=== PATIENT | male | born 1970 | race Caucasian/White ===

== ENCOUNTER 2018-02-12 14:32 | Inpatient (IN) | payer OTHER ==
[2018-02-12 14:42] VITALS: BMI 33.1
--- NOTE | 2018-02-12 15:44 | PDOC ---
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 Pt states the chest pressure led to mild SOB and so took 2 nitros with resolution of CP within 15-20 minutes. Pt came after being convinced to be looked at [facility]. The incident took place near [facility] and pt lives in the [place]. Pt has no complaints presently and states does not have a permit technician nor has pt f/u permit technician. Presenting Symptoms: Chest Pain, Short of Breath Timing/Duration: reports: intermittent Severity/Quality: reports: moderate, pressure Location: reports: substernal Chest Pain Radiation: reports: no radiation Activities at Onset: reports: exertion Prior Chest Pain/Cardiac Workup: reports: Angina, Echocardiography, Pulmonary Embolism, Stress Test Nitro Today/Relief: Yes: 0.4 mg x 2 Aspirin Received prior to arrival (Core Measure): Yes: no aspirin today Beta Maday given by EMS (Core Measure): No Beta Maday taken at Home (Core Measure): No Beta Maday Contraindications (Core Measure): Yes: Not Prescribed Beta Maday indicated at this time? (Core Measure): No Associated Symptoms: Yes: Chest Pain/pressure, Shortness of Breath Past History - Past Medical History Allergies/Adverse Reactions: Allergies Allergy/AdvReac Type Severity Reaction Status Date / Time Penicillins Allergy Verified 02/12/18 14:42 Home Medications: Ambulatory Orders Amlodipine Besylate 5 mg PO DAILY 02/12/18 Apixaban [Eliquis] 5 mg PO BID 02/12/18 Aspirin [ASA -] 81 mg PO DAILY 02/12/18 Atorvastatin Calcium 80 mg PO DAILY 02/12/18 Isosorbide Mononitrate [Isosorbide Mononitrate ER] 60 mg PO DAILY 02/12/18 Levothyroxine [Synthroid -] 50 mcg PO DAILY 02/12/18 Lidocaine 5% Patch [Lidoderm -] 1 patch TP BID 02/12/18 Lisinopril 10 mg PO DAILY 02/12/18 Methylnaltrexone [place] [Relistor] 150 mg PO DAILY 02/12/18 Metoprolol Tartrate 100 mg PO BID 02/12/18 Nitroglycerin Sublingual [Nitrostat -] 0.4 mg SL PRN PRN 02/12/18 Oxycodone HCl 15 mg PO QID PRN 02/12/18 Atorvastatin Ca [Lipitor] 40 mg PO HS 02/13/18 Lisinopril 20 mg PO DAILY 02/13/18 Cardiac Disorders: Yes (failed stress test a few months ago) COPD: Yes HTN: No Hypercholesterolemia: No Thyroid Disease: Yes (hypothyroid) Other medical history: Pulmonary Emboli x 3 - Suicide/Smoking/Psychosocial Hx Smoking History: Never smoked Patient Lives Alone: Yes Lives with/in: lives alone Review of Systems - Review of Systems Able to Perform ROS?: Yes Constitutional: No: Symptoms Reported HEENTM: No: Symptoms Reported Respiratory: No: Symptoms reported Cardiac (ROS): Yes: Chest Pain ABD/GI: No: Symptoms Reported : No: Symptoms Reported Musculoskeletal: No: Symptoms Reported Integumentary: No: Symptoms Reported Neurological: No: Symptoms reported Hematologic/Lymphatic: Yes: See HPI *Physical Exam - Vital Signs Last Vital Signs Temp Pulse Resp BP Pulse Ox 97.7 F 83 16 115/76 97 02/16/18 09:00 02/16/18 14:25 02/16/18 14:25 02/16/18 14:25 02/16/18 14:25 - Physical Exam General Appearance: Yes: Nourished, Appropriately Dressed. No: Apparent Distress HEENT: positive: EOMI, ALEC, Pharynx Normal. negative: Pale Conjunctivae Neck: positive: Supple Respiratory/Chest: positive: Lungs Clear, Normal Breath Sounds. negative: Chest Tender, Respiratory Distress, Accessory Muscle Use Cardiovascular: positive: Regular Rhythm, Regular Rate. negative: Murmur Heart Score/ECG Review - ECG Intrepretation Rhythm: Regular Rhythm (rate 86, nsr, no st elevation/depression noted) Moderate Sedation - Procedure Monitoring Vital Signs: Procedure Monitoring Vital Signs Temperature 97.7 F 02/16/18 09:00 Pulse Rate 83 02/16/18 14:25 Respiratory Rate 16 02/16/18 14:25 Blood Pressure 115/76 02/16/18 14:25 O2 Sat by Pulse Oximetry (%) 97 02/16/18 14:25 ED Treatment Course - LABORATORY CBC & Chemistry Diagram: 02/16/18 05:30 02/16/18 05:30 - ADDITIONAL ORDERS Additional order review: 02/13/18 02/12/18 05:30 15:30 RBC 4.22 4.39 MCV 83.5 82.2 MCHC 32.2 34.3 RDW 15.4 15.6 MPV 8.8 8.8 Neutrophils % 58.4 72.0 Lymphocytes % 24.4 D 15.9 Monocytes % 11.8 H 7.5 Eosinophils % 5.2 H 4.3 Basophils % 0.2 0.3 - RADIOLOGY Radiology Studies Ordered: Category Date Time Status CHEST X-RAY PORTABLE* [RAD] Stat Radiology 02/12/18 15:11 Completed - Medications Given in the ED: ED Medications Discontinued Medications Generic Name Dose Route Start Last Admin Trade Name Freq PRN Reason Stop Dose Admin Apixaban 5 mg 02/12/18 22:00 02/13/18 10:07 Eliquis - PO 5 mg BID JESSICA Administration Atorvastatin Calcium 40 mg 02/12/18 17:38 02/12/18 18:30 Lipitor - PO 02/12/18 17:39 40 mg ONCE ONE Administration Bisacodyl 20 mg 02/14/18 16:18 02/14/18 16:18 Dulcolax - PO 02/14/18 16:19 20 mg ONCE ONE Administration Enoxaparin Sodium 120 mg 02/13/18 17:30 02/14/18 17:24 Lovenox - SQ 02/14/18 23:00 120 mg Q12H JESSICA Administration Enoxaparin Sodium 120 mg 02/15/18 18:00 02/15/18 18:10 Lovenox - SQ 02/15/18 18:01 120 mg ONCE ONE Administration Heparin Sodium (Porcine) 5,000 unit 02/12/18 18:00 02/12/18 18:31 Heparin - SQ Not Given Q8H-IV JESSICA Metoprolol Tartrate 100 mg 02/12/18 17:35 02/12/18 18:30 Lopressor - PO 02/12/18 17:36 100 mg ONCE ONE Administration Morphine Sulfate 2 mg 02/16/18 04:51 02/16/18 05:01 Morphine Injection - IVPUSH 02/16/18 04:52 Not Given ONCE ONE Oxycodone HCl 15 mg 02/12/18 16:33 02/12/18 16:54 Roxicodone - PO 02/12/18 16:34 15 mg ONCE ONE Administration Oxycodone HCl 15 mg 02/12/18 21:14 02/15/18 19:15 Roxicodone - PO 15 mg Q4H PRN Administration PAIN SCALE 5-10 Oxycodone HCl 15 mg 02/15/18 23:25 02/15/18 23:40 Roxicodone - PO 15 mg Q6H PRN Administration PAIN LEVEL 6-10 Polyethylene Glycol 255 gm 02/15/18 17:00 02/15/18 18:00 Miralax (For Bowel Prep) - PO 02/15/18 17:01 255 gm ONCE ONE Administration Polyethylene Glycol/Electrolytes 4,000 ml 02/14/18 16:18 02/14/18 16:43 Golytely Solution - PO 02/14/18 16:19 4,000 ml ONCE ONE Administration Medical Decision Making - Medical Decision Making 02/12/18 15:36 CC: cp w/ sob x 10 minutes, relieved w nlg x 2, hx abnormal stress test, pe x 3 , htn, dyslipidemia Exam: vss, ekg normal, no acute physical findings Plan: cardiac w/u, 02/12/18 16:38 Laboratory Tests 02/12/18 02/12/18 02/12/18 15:30 15:30 15:30 WBC 3.8 L Hgb 12.4 Hct 36.1 Plt Count 110 L MPV 8.8 Absolute Neuts (auto) 2.7 INR 1.03 Sodium 138 Potassium 3.7 Chloride 103 Carbon Dioxide 28 Anion Gap 7 L BUN 11 Creatinine 1.0 Random Glucose 92 Calcium 8.4 L Total Bilirubin 0.5 AST 73 H ALT 117 H Creatine Kinase 270 Troponin I < 0.02 Albumin 3.8 02/12/18 17:38 Patient awaiting ultrasound guided IV to be placed by resident. Case discussed with Dr. Derek Degroot permit technician who is recommending to get patient his beta maday Lopressor 100 along with his statin medication. He states will see patient tomorrow. Case was discussed with hospitalist, ADMIT to telemetry under observation status. *DC/Admit/Observation/Transfer Diagnosis at time of Disposition: Chest pain - Discharge Dispostion Decision to Admit order: Yes - Referrals - Patient Instructions - Post Discharge Activity
[2018-02-12 16:06] LABS: BASO % 0.3 % (0-2.0); EOS % 4.3 % (0-4.5); HEMATOCRIT 36.1 % (35.4-49); HEMOGLOBIN 12.4 GM/dL (11.7-16.9); LYMPH % 15.9 % (8-40); MCH 28.2 pg (25.7-33.7); MCHC 34.3 g/dl (32.0-35.9); MEAN CELL VOLUME 82.2 fl (80-96); MEAN PLT VOLUME 8.8 fl (7.5-11.1); MONO % 7.5 % (3.8-10.2); PLATELET COUNT 110 K/MM3 (134-434); RBC 4.39 M/mm3 (4.00-5.60); RDW 15.6 % (11.9-15.9); WHITE BLOOD COUNT 3.8 K/mm3 (4.0-10.0)
[2018-02-12 16:31] LABS: INR 1.03 (0.83-1.09); PROTHROMBIN TIME (PATIENT) 12.2 SEC (9.7-13.0)
[2018-02-12 16:33] LABS: ACTIVATED PTT 27.6 SECONDS (25.2-36.5)
[2018-02-12] MEDS ORDERED: oxyCODONE HCL 5 MG TABLET PO ONE (16:33)
[2018-02-12 16:35] LABS: ALBUMIN 3.8 g/dl (3.4-5.0); ALK PHOS 61 U/L (45-117); ANION GAP 7 MMOL/L (8-16); BILIRUBIN,TOTAL 0.5 mg/dL (0.2-1); BLOOD UREA NITROGEN 11 mg/dL (7-18); CALCIUM 8.4 mg/dL (8.5-10.1); CHLORIDE 103 mmol/L (98-107); CO2 28 mmol/L (21-32); GLUCOSE,RANDOM 92 mg/dL (74-106); MAGNESIUM 2.2 mg/dL (1.8-2.4); POTASSIUM 3.7 mmol/L (3.5-5.1); SGOT/AST 73 U/L (15-37); SGPT/ALT 117 U/L (13-61); SODIUM 138 mmol/L (136-145); TOT PROT 7.8 g/dl (6.4-8.2)
[2018-02-12] MEDS ORDERED: oxyCODONE HCL 5 MG TABLET ONE (16:57)
[2018-02-12] MEDS ORDERED: METOPROLOL TARTRATE 50 MG TABLET (FP) PO ONE (17:35)
[2018-02-12] MEDS ORDERED: ATORVASTATIN CA 40 MG TABLET (FP) PO ONE (17:38)
[2018-02-12] MEDS ORDERED: HEPARIN NA (PORCINE) 5,000 UNITS/ML 1ML VIAL SQ SCH (18:00)
[2018-02-12] MEDS ORDERED: NITROGLYCERIN SUBLINGUAL 1/150 0.4 MG TAB SL PRN ×2 (18:02→18:04)
--- NOTE | 2018-02-12 18:03 | HP ---
CHIEF COMPLAINT: Chest Pain PCP: HISTORY OF PRESENT ILLNESS: Pt is a 47 y/o gentleman with a significant past medical history of HTN, HLD, positive stress test [facility] November 2017, hypothyroidism, DVT ( 2011 s/p R Knee surgery), Pulmonary embolism (2014), Pulmonary embolism Mar 2017 (started on Coumadin), another PE Oct 2017 (Coumadin switched to eliquis), IVC filter placement who presented to [facility] c/o left sided chest pain that begin earlier today. Per pt, he was walking up 5 flights of stairs when he suddenly began to experience a tight, squeezing sensation on the left side of his chest. Pain is described as a 6/10 in severity. Associated diaphoresis, no palpitations, nausea or vomiting. Pt endorses 6 months of intermittent exertional chest pain which has progressed to nearly daily and sometimes at rest. States he uses nitroglycerin when he experiences his chest pain which successfully mitigates his pain. Furthermore, pt also endorses orthopnea and states that he feel like he is " under water" and uses 2 and 1/2 pillows to sleep. ER course was notable for: (1) Troponin < 0.02 (2) (3) Recent Travel: PAST MEDICAL HISTORY: per HPI PAST SURGICAL HISTORY: R knee replacement surgery, Hip surgery s/p fracture Social History: Smoking: denies Alcohol:denies Drugs: denies Family History: Brother M.I at 39 y/o, Father M.I @ 54 Allergies Penicillin Penicillins Allergy (Verified 02/12/18 14:42) HOME MEDICATIONS: Home Medications Medication Instructions Recorded Amlodipine Besylate 5 mg PO DAILY 02/12/18 Apixaban [Eliquis] 5 mg PO BID 02/12/18 Aspirin [ASA -] 81 mg PO DAILY 02/12/18 Atorvastatin Calcium 80 mg PO DAILY 02/12/18 Isosorbide Mononitrate [Isosorbide 60 mg PO DAILY 02/12/18 Mononitrate ER] Levothyroxine [Synthroid -] 50 mcg PO DAILY 02/12/18 Lidocaine 5% Patch [Lidoderm -] 1 patch TP BID 02/12/18 Lisinopril 10 mg PO DAILY 02/12/18 Methylnaltrexone [place] [Relistor] 150 mg PO DAILY 02/12/18 Metoprolol Succinate [Kapspargo 100 mg PO BID 02/12/18 Sprinkle] Nitroglycerin Sublingual 0.4 mg SL PRN PRN 02/12/18 [Nitrostat -] Oxycodone HCl 15 mg PO QID PRN 02/12/18 REVIEW OF SYSTEMS CONSTITUTIONAL: Absent: fever, chills, diaphoresis, generalized weakness, malaise, loss of appetite, weight change HEENT: Absent: rhinorrhea, nasal congestion, throat pain, throat swelling, difficulty swallowing, mouth swelling, ear pain, eye pain, visual changes CARDIOVASCULAR: PRESENT: chest pain, syncope, palpitations, lightheadedness, RESPIRATORY: PRESENT: shortness of breath, dyspnea with exertion, orthopnea GASTROINTESTINAL: Absent: abdominal pain, abdominal distension, nausea, vomiting, diarrhea, constipation, melena, hematochezia GENITOURINARY: Absent: dysuria, frequency, urgency, hesitancy, hematuria, flank pain, genital pain MUSCULOSKELETAL: Absent: myalgia, arthralgia, joint swelling, back pain, neck pain SKIN: Absent: rash, itching, pallor HEMATOLOGIC/IMMUNOLOGIC: Absent: easy bleeding, easy bruising, lymphadenopathy, frequent infections ENDOCRINE: Absent: unexplained weight gain, unexplained weight loss, heat intolerance, cold intolerance NEUROLOGIC: Absent: headache, focal weakness or paresthesias, dizziness, unsteady gait, seizure, mental status changes, bladder or bowel incontinence PSYCHIATRIC: Absent: anxiety, depression, suicidal or homicidal ideation, hallucinations. PHYSICAL EXAMINATION Vital Signs - 24 hr 02/12/18 14:34 Temperature 97.9 F Pulse Rate 88 Respiratory 18 Rate Blood Pressure 130/82 O2 Sat by Pulse 97 Oximetry (%) GENERAL: NAD AAOx3, Pleasant HEAD: Atraumatic Normocephalic EYES: EOMI Conjunctiva clear EARS, NOSE, THROAT: MMM NECK: Supple LUNGS: CTA B/L No wheezing rales or rhonchi HEART: RRR No MRG appreciated S1S2 ABDOMEN: Soft Nondistended nontender MUSCULOSKELETAL: FROM throughout UPPER EXTREMITIES: No CCE LOWER EXTREMITIES: Trace edema NEUROLOGICAL: No neuro deficits appreciated PSYCHIATRIC: Cooperative. Good eye contact. Appropriate mood and affect. SKIN: No rashes or lesions appreciated Laboratory Results - last 24 hr 02/12/18 02/12/18 02/12/18 15:30 15:30 15:30 WBC 3.8 L RBC 4.39 Hgb 12.4 Hct 36.1 MCV 82.2 MCH 28.2 MCHC 34.3 RDW 15.6 Plt Count 110 L MPV 8.8 Absolute Neuts (auto) 2.7 Neutrophils % 72.0 Lymphocytes % 15.9 Monocytes % 7.5 Eosinophils % 4.3 Basophils % 0.3 Nucleated RBC % 0 PT with INR 12.20 INR 1.03 PTT (Actin FS) 27.6 Sodium 138 Potassium 3.7 Chloride 103 Carbon Dioxide 28 Anion Gap 7 L BUN 11 Creatinine 1.0 Creat Clearance w eGFR > 60 Random Glucose 92 Calcium 8.4 L Magnesium 2.2 Total Bilirubin 0.5 AST 73 H ALT 117 H Alkaline Phosphatase 61 Creatine Kinase 270 Creatine Kinase Index 0.8 CK-MB (CK-2) 2.4 Troponin I < 0.02 Total Protein 7.8 Albumin 3.8 Blood Type Antibody Screen 02/12/18 15:30 WBC RBC Hgb Hct MCV MCH MCHC RDW Plt Count MPV Absolute Neuts (auto) Neutrophils % Lymphocytes % Monocytes % Eosinophils % Basophils % Nucleated RBC % PT with INR INR PTT (Actin FS) Sodium Potassium Chloride Carbon Dioxide Anion Gap BUN Creatinine Creat Clearance w eGFR Random Glucose Calcium Magnesium Total Bilirubin AST ALT Alkaline Phosphatase Creatine Kinase Creatine Kinase Index CK-MB (CK-2) Troponin I Total Protein Albumin Blood Type A POSITIVE Antibody Screen Negative ASSESSMENT/PLAN: Pt is a 47 y/o gentleman with a significant past medical history of HTN, HLD, positive stress test in [place] 6 months ago, positive stress test [facility] November 2017, hypothyroidism, DVT (2011 s/p R Knee surgery), Pulmonary embolism (2014), Pulmonary embolism Mar 2017 (started on Coumadin), another PE Oct 2017 (Coumadin switched to eliquis), IVC filter placement who presented to [facility] c/o left sided chest pain that begin earlier today. #Stable Angina -Chest pain while walking up 5 flights of stairs mitigated with Nitroglycerin - Previous + stress tests in past - Cardiology on board - Imdur 60 MG po Daily - Nitro 0.4 mg SL PRN -Metoprolol succinate 100 BID - Troponin Negative. Repeat pending - EKG Nl Sinus rythm, normal rate, No acute ST changes appreciated -Tele monitoring #HTN Continue home Lisinopril, Amlodipine #HLD Atorvastatin #FEN No Fluids Monitor Electrolytes Sodium Controlled Diet #DVT ppx: Eliquis #Dispo: Tele Visit type - Emergency Visit Emergency Visit: Yes ED Registration Date: 02/12/18 Care time: The patient presented to the Emergency Department on the above date and was hospitalized for further evaluation of their emergent condition. - New Patient This patient is new to me today: Yes Date on this admission: 02/12/18 - Critical Care Critical Care patient: No
[2018-02-12] MEDS ORDERED: oxyCODONE HCL 5 MG TABLET PO PRN (18:04)
[2018-02-12] MEDS ORDERED: METOPROLOL TARTRATE 50 MG TABLET (FP) ONE (18:48)
[2018-02-12] MEDS ORDERED: ATORVASTATIN CA 40 MG TABLET (FP) ONE (18:49)
--- NOTE | 2018-02-12 19:01 | PN ---
Teaching Attending Note Name of Resident: Rg Cespedes ATTENDING PHYSICIAN STATEMENT I saw and evaluated the patient. I reviewed the resident's note and discussed the case with the resident. I agree with the resident's findings and plan as documented. SUBJECTIVE: Comfortable, pain-free currently. No palpitations, SOB, diaphoresis OBJECTIVE: Afebrile, Hemodynamically Stable Last Vital Signs Temp Pulse Resp BP Pulse Ox 97.9 F 88 18 130/82 97 02/12/18 14:34 02/12/18 14:34 02/12/18 14:34 02/12/18 14:34 02/12/18 14:34 HEENT - Atraumatic, Normocephalic. No pharyngeal erythema/exudate Heart -S1, S2, RRR Lungs - clear to auscultation Abdomen - soft, non-tender. Bowel Souds normal. Extremities - 1+ edema. No calf tenderness Neuro - AAO x 3. Tone/Power normal all 4 extremities. Laboratory Results - last 24 hr 02/12/18 02/12/18 02/12/18 15:30 15:30 15:30 WBC 3.8 L RBC 4.39 Hgb 12.4 Hct 36.1 MCV 82.2 MCH 28.2 MCHC 34.3 RDW 15.6 Plt Count 110 L MPV 8.8 Absolute Neuts (auto) 2.7 Neutrophils % 72.0 Lymphocytes % 15.9 Monocytes % 7.5 Eosinophils % 4.3 Basophils % 0.3 Nucleated RBC % 0 PT with INR 12.20 INR 1.03 PTT (Actin FS) 27.6 Sodium 138 Potassium 3.7 Chloride 103 Carbon Dioxide 28 Anion Gap 7 L BUN 11 Creatinine 1.0 Creat Clearance w eGFR > 60 Random Glucose 92 Calcium 8.4 L Magnesium 2.2 Total Bilirubin 0.5 AST 73 H ALT 117 H Alkaline Phosphatase 61 Creatine Kinase 270 Creatine Kinase Index 0.8 CK-MB (CK-2) 2.4 Troponin I < 0.02 Total Protein 7.8 Albumin 3.8 Blood Type Antibody Screen 02/12/18 15:30 WBC RBC Hgb Hct MCV MCH MCHC RDW Plt Count MPV Absolute Neuts (auto) Neutrophils % Lymphocytes % Monocytes % Eosinophils % Basophils % Nucleated RBC % PT with INR INR PTT (Actin FS) Sodium Potassium Chloride Carbon Dioxide Anion Gap BUN Creatinine Creat Clearance w eGFR Random Glucose Calcium Magnesium Total Bilirubin AST ALT Alkaline Phosphatase Creatine Kinase Creatine Kinase Index CK-MB (CK-2) Troponin I Total Protein Albumin Blood Type A POSITIVE Antibody Screen Negative Home Medications Medication Instructions Recorded Amlodipine Besylate 5 mg PO DAILY 02/12/18 Apixaban [Eliquis] 5 mg PO BID 02/12/18 Aspirin [ASA -] 81 mg PO DAILY 02/12/18 Atorvastatin Calcium 80 mg PO DAILY 02/12/18 Isosorbide Mononitrate [Isosorbide 60 mg PO DAILY 02/12/18 Mononitrate ER] Levothyroxine [Synthroid -] 50 mcg PO DAILY 02/12/18 Lidocaine 5% Patch [Lidoderm -] 1 patch TP BID 02/12/18 Lisinopril 10 mg PO DAILY 02/12/18 Methylnaltrexone [place] [Relistor] 150 mg PO DAILY 02/12/18 Metoprolol Succinate [Kapspargo 100 mg PO BID 02/12/18 Sprinkle] Nitroglycerin Sublingual 0.4 mg SL PRN PRN 02/12/18 [Nitrostat -] Oxycodone HCl 15 mg PO QID PRN 02/12/18 CXR - no acute cardiopulmonary findings ECG - Normal sinus rhythm, rate - no ST/T wave changes. ASSESSMENT AND PLAN: 47 year old male with Hx DVT/recurrent PEs (2014, 2017 x 2, last 11/15 - at which time he was switched from Coumadin to Eliquis), CAD (s/p 2 positive stress tests - 1 NM stress 08/09 ago in [place] and another ECG/exercise Stress 12/15 at [facility]), never proceeded to Cath despite the recommendation by Cardiology at [facility] to do so, worsening exertional chest pain, now with almost daily chest discomfort, sometimes occurring at rest, relieved by nitroglycerin. he is currently admitted after 2 episodes of chest pain today (one after climbing 3 flights of stairs and the other at rest, both relieved within minutes by NTG). He had associated diaphoresis. Denies palpitations, SOB, Nausea , vomiting. Currently pain-free. Reports Orthopnea (uses 2 1/2 pillows), no PND or palpitations. No fever/chills/ abdominal pain/nausea/vomiting. No headache/visual disturbance/ limb numbness, weakness or tingling. No LOC/syncope/fits/faints/blackouts/seizures. Positive FH - Father had RI at age 54, Brother underwent CABG at age 39. SH - Non-smoker/denies alcohol use. Allergies - PCN Meds - as above ROS - 10 point review of systems performed and all pertinent findings as outlined above. PHYSICAL EXAM - As Above INVESTIGATIONS/LABS - As Above. A/P 1. Unstable Angina - has rest episodes of CP with 2 prior positive stress tests in the past 6 months. Troponin negative - will trend. Admit to telemonitoring bed. Continue ASA, BB, SELWYN, Statin. Will give O2 at 2L and Nitro paste. Discussed at length with Cardiology on-call (Dr. Degorot) who was consulted regarding unstable angina and need for Cardiac Cath - he recommended admission and did not feel that the patient required transfer to a center with facility for cardiac cath. He felt that the patient may benefit from optimization of medical therapy rather than emergent cath. I explained to the patient that [facility] does not offer cath and that he would need to be transferred to another facility if there was any deterioration overnight that warranted acute intervention. Patient reports Orthopnea and has LE edema - BNP added. Echo requested. 2. Hx DVT with recurrent PEs On eliquis No respiratory distress, SpO2 97% RA Thrombophilia work-up reportedly negative. 3. HTN - Continue Norvasc, Isosorbide, Lisinopril, Metoprolol 4. HLD - Continue Atorvastatin 5. Hypothyroidism - Continue Synthroid. 6. Elevated Transaminases - possibly due to hepatic congestion. Will request Hepatitis work-up and Abdominal US. DVT Px - on Eliquis GI Px - PPI
[2018-02-12 20:14] LABS: N-TERMINAL BNP 23.1 pg/ml (5-125)
[2018-02-12] MEDS ORDERED: MORPHINE SULFATE 2 MG/ML VIAL IVPUSH ONE (21:08)
[2018-02-12] MEDS: oxyCODONE HCL 5 MG TABLET PO PRN (21:24)
[2018-02-12] MEDS: APIXABAN 5 MG TABLET PO SCH (21:25)
[2018-02-12] MEDS: PANTOPRAZOLE 40 MG TABLET (FP) PO SCH (21:25)
[2018-02-12] MEDS: LIDOCAINE 5% TOPICAL PATCH TP SCH (22:44)
[2018-02-13] MEDS: oxyCODONE HCL 5 MG TABLET PO PRN ×6 (02:34→22:20)
[2018-02-13 02:56] LABS: URINE APPEARANCE CLEAR; URINE BILIRUBIN NEGATIVE (<2.0 mg/dL); URINE COLOR STRAW; URINE GLUCOSE (UA) NEGATIVE (NEGATIVE); URINE KETONE NEGATIVE (NEGATIVE); URINE LEUK ESTERASE NEGATIVE (NEGATIVE); URINE NITRITE NEGATIVE (NEGATIVE); URINE PROTEIN NEGATIVE (NEGATIVE); URINE UROBILINOGEN NEGATIVE mg/dL (0.2-1.0)
[2018-02-13 06:39] LABS: BASO % 0.2 % (0-2.0); EOS % 5.2 % (0-4.5); HEMATOCRIT 35.3 % (35.4-49); HEMOGLOBIN 11.4 GM/dL (11.7-16.9); INR 1.04 (0.83-1.09); LYMPH % 24.4 % (8-40); MCH 26.9 pg (25.7-33.7); MCHC 32.2 g/dl (32.0-35.9); MEAN CELL VOLUME 83.5 fl (80-96); MEAN PLT VOLUME 8.8 fl (7.5-11.1); MONO % 11.8 % (3.8-10.2); NEUT % 58.4 % (42.8-82.8); PLATELET COUNT 83 K/MM3 (134-434); PROTHROMBIN TIME (PATIENT) 12.3 SEC (9.7-13.0); RBC 4.22 M/mm3 (4.00-5.60); RDW 15.4 % (11.9-15.9); WHITE BLOOD COUNT 2.7 K/mm3 (4.0-10.0)
[2018-02-13 06:41] LABS: ACTIVATED PTT 28.5 SECONDS (25.2-36.5)
[2018-02-13 06:56] LABS: ALBUMIN 3.1 g/dl (3.4-5.0); ALK PHOS 50 U/L (45-117); ANION GAP 5 MMOL/L (8-16); BILIRUBIN,TOTAL 0.4 mg/dL (0.2-1); BLOOD UREA NITROGEN 10 mg/dL (7-18); CALCIUM 8.2 mg/dL (8.5-10.1); CHLORIDE 107 mmol/L (98-107); CO2 28 mmol/L (21-32); GLUCOSE,RANDOM 104 mg/dL (74-106); MAGNESIUM 2.2 mg/dL (1.8-2.4); N-TERMINAL BNP 24.1 pg/ml (5-125); PHOSPHOROUS 3.1 mg/dL (2.5-4.9); POTASSIUM 4.1 mmol/L (3.5-5.1); SGOT/AST 56 U/L (15-37); SGPT/ALT 98 U/L (13-61); SODIUM 140 mmol/L (136-145); TOT PROT 6.4 g/dl (6.4-8.2)
--- NOTE | 2018-02-13 09:50 | EKG ---
Test Reason : Blood Pressure : / mmHG Vent. Rate : 084 BPM Atrial Rate : 084 BPM P-R Int : 152 ms QRS Dur : 096 ms QT Int : 382 ms P-R-T Axes : 034 015 026 degrees QTc Int : 451 ms NORMAL SINUS RHYTHM NORMAL ECG WHEN COMPARED WITH ECG OF 12-FEB-2018 14:37, NO SIGNIFICANT CHANGE WAS FOUND Confirmed by LANI SANTOS MD ([id number]) on 02/13/2018 9:49:59 AM Referred By: Confirmed By:LANI SANTOS MD
--- NOTE | 2018-02-13 09:52 | EKG ---
Test Reason : Blood Pressure : / mmHG Vent. Rate : 086 BPM Atrial Rate : 086 BPM P-R Int : 146 ms QRS Dur : 102 ms QT Int : 376 ms P-R-T Axes : 031 018 014 degrees QTc Int : 449 ms NORMAL SINUS RHYTHM NORMAL ECG NO PREVIOUS ECGS AVAILABLE Confirmed by LANI SANTOS MD ([id number]) on 02/13/2018 9:52:45 AM Referred By: Confirmed By:LANI SANTOS MD
[2018-02-13] MEDS ORDERED: METHYLNALTREXONE BROMIDE 150 MG PO SCH (10:00)
[2018-02-13] MEDS: ISOSORBIDE MONONITRATE 60 MG TAB.SR.24H (FP) PO SCH (10:06)
[2018-02-13] MEDS: ASPIRIN 81 MG CHEWABLE TABLETS PO SCH (10:06)
[2018-02-13] MEDS: LIDOCAINE 5% TOPICAL PATCH TP SCH ×2 (10:07→22:27)
[2018-02-13] MEDS: PANTOPRAZOLE 40 MG TABLET (FP) PO SCH (10:07)
[2018-02-13] MEDS: LISINOPRIL 10 MG TABLET (FP) PO SCH (10:07)
[2018-02-13] MEDS: APIXABAN 5 MG TABLET PO SCH (10:07)
[2018-02-13] MEDS: ATORVASTATIN CA 80 MG TABLET (FP) PO SCH (10:07)
[2018-02-13] MEDS: amLODIPine BESYLATE 5 MG TABLET (FP) PO SCH (10:07)
[2018-02-13] MEDS: LEVOTHYROXINE NA 50 MCG TABLET (FP) PO SCH (10:09)
--- NOTE | 2018-02-13 11:12 | CON.CARD ---
Consult Consult Specialty:: Cardiology Referred by:: Hospitalist Medicine Reason for Consultation:: Angina - History of Present Illness Chief Complaint: Angina History of Present Illness: Pt is a 47 y/o gentleman with a significant past medical history of HTN, HLD, positive stress test [facility] November 2017, hypothyroidism, DVT ( 2011 s/p R Knee surgery), Pulmonary embolism (2014), Pulmonary embolism Mar 2017 (started on Coumadin), another PE Oct 2017 (Coumadin switched to eliquis), IVC filter placement who presented to [facility] c/o progressive angina walking up 5 flights of stairs when he suddenly began to experience a tight, squeezing sensation on the left side of his chest NTG responsive associated with TRISTAN, diaphoresis, orthopnea without palpitations, nausea or vomiting, PND or LE edema. Pt endorses 6 months of intermittent exertional chest pain which has progressed. States he uses nitroglycerin when he experiences his chest pain which successfully mitigates his pain. He also reports hematochezia for last month with appearance of maroon stools. - History Source History Provided By: Patient Limitations to Obtaining History: No Limitations - Alcohol/Substance Use Hx Alcohol Use: No - Smoking History Smoking history: Never smoked Home Medications - Allergies Allergies/Adverse Reactions: Allergies Allergy/AdvReac Type Severity Reaction Status Date / Time Penicillins Allergy Verified 02/12/18 14:42 - Home Medications Home Medications: Ambulatory Orders Amlodipine Besylate 5 mg PO DAILY 02/12/18 Apixaban [Eliquis] 5 mg PO BID 02/12/18 Aspirin [ASA -] 81 mg PO DAILY 02/12/18 Atorvastatin Calcium 80 mg PO DAILY 02/12/18 Isosorbide Mononitrate [Isosorbide Mononitrate ER] 60 mg PO DAILY 02/12/18 Levothyroxine [Synthroid -] 50 mcg PO DAILY 02/12/18 Lidocaine 5% Patch [Lidoderm -] 1 patch TP BID 02/12/18 Lisinopril 10 mg PO DAILY 02/12/18 Methylnaltrexone [place]igator [Relistor] 150 mg PO DAILY 02/12/18 Metoprolol Tartrate 100 mg PO BID 02/12/18 Nitroglycerin Sublingual [Nitrostat -] 0.4 mg SL PRN PRN 02/12/18 Oxycodone HCl 15 mg PO QID PRN 02/12/18 Family Disease History - Family Disease History Family Disease History: Heart Disease: Father (AK @ 54, colon cancer @ 54), Brother (CABG @ 39) Review of Systems - Review of Systems Cardiovascular: reports: Chest Pain Respiratory: reports: Exercise Intolerance, Orthopnea, SOB on Exertion Gastrointestinal: reports: Rectal Bleeding Vital Signs: Vital Signs Temperature 97.4 F L 02/13/18 05:00 Pulse Rate 74 02/13/18 05:00 Respiratory Rate 18 02/13/18 05:00 Blood Pressure 103/65 02/13/18 05:00 O2 Sat by Pulse Oximetry (%) 98 02/13/18 01:57 Constitutional: Yes: No Distress, Calm Neck: Yes: Supple Respiratory: Yes: Regular, CTA Bilaterally, Orthopnea Gastrointestinal: Yes: Normal Bowel Sounds, Soft, Abdomen, Obese Cardiovascular: Yes: Regular Rate and Rhythm Heart Sounds: Yes: S1, S2 Edema: No - Other Data Labs, Other Data: CBC, BMP 02/13/18 05:30 02/13/18 05:30 INR, PTT INR 1.04 (0.83-1.09) 02/13/18 05:30 Troponin, BNP 02/12/18 02/12/18 02/12/18 15:30 18:26 23:00 Troponin I < 0.02 < 0.02 < 0.02 B-Natriuretic Peptide 23.1 02/13/18 05:30 Troponin I B-Natriuretic Peptide 24.1 Troponin, BNP 02/12/18 02/12/18 02/12/18 15:30 18:26 23:00 Troponin I < 0.02 < 0.02 < 0.02 B-Natriuretic Peptide 23.1 02/13/18 05:30 Troponin I B-Natriuretic Peptide 24.1 NSR @ [address]-T changes Imaging - Results Chest X-ray: Report Reviewed (NAD) Problem List - Problems (1) Progressive angina Code(s): I20.0 - UNSTABLE ANGINA (2) History of pulmonary embolism Code(s): Z86.711 - PERSONAL HISTORY OF PULMONARY EMBOLISM (3) H/O deep venous thrombosis Code(s): Z86.718 - PERSONAL HISTORY OF OTHER VENOUS THROMBOSIS AND EMBOLISM (5) Chronic anticoagulation Code(s): Z79.01 - DEPUTY CHIEF MAGISTRATE (CURRENT) USE OF ANTICOAGULANTS (6) Hematochezia Code(s): K92.1 - MELENA (7) Family history of malignant neoplasm of colon in first degree relative diagnosed when younger than 60 years of age Code(s): Z80.0 - FAMILY HISTORY OF MALIGNANT NEOPLASM OF DIGESTIVE ORGANS (8) Family history of premature coronary artery disease Code(s): Z82.49 - FAMILY HX OF ISCHEM HEART DIS AND OTH DIS OF THE CIRC SYS (9) Hypothyroidism Code(s): E03.9 - HYPOTHYROIDISM, UNSPECIFIED Qualifiers: Hypothyroidism type: unspecified Qualified Code(s): E03.9 - Hypothyroidism , unspecified (10) Hyperlipidemia Code(s): E78.5 - HYPERLIPIDEMIA, UNSPECIFIED Qualifiers: Hyperlipidemia type: pure hypercholesterolemia Qualified Code(s): E78.00 - Pure hypercholesterolemia, unspecified; E78.0 - Pure hypercholesterolemia Assessment/Plan 1. CAD with progressive angina, s/p 2 positive stress tests - 1 NM stress / ago in [place] and another ECG/exercise Stress 12/15 at [facility] 2. H/o DVT/recurrent PEs (2014, 2017 x 2, last 11/15 - at which time he was switched from Coumadin to Eliquis lifelong and IVC filter 3. Diastolic dysfunction 4. Family h/o premature CAD Father had AK at age 54, Brother underwent CABG at age 39 5. Hematochezia with family h/o colon ca (father @ 54) 6. Hypothyroidism 7. T11 compression fracture with need for spinal fusion 8. Pancytopenua P:1. Ruled out for AK, f/u echo to assess ventricular and valve fxn, check TSH, lipid panel 2. Obtain previous cardiac w/u from [facility] for review 3. Add Ranexa 500 bid, continue Norvasc 5 qd, Eliquis 5 bid, ASA 81 qd, Lipitor 80 qd, Imdur 60 qd, Lopressor 100 bid, lisinopril 10 qd, SL NTG as needed 4. Referring to [facility] +/- PCI is problematic given hematochezia and need for prolonged antiplatelet and NOAC use which may also preclude colonoscopy and biopsy along spinal fusion surgery, please consult GI for their input prior to cath 5. Thank you for consultative opportunity
[2018-02-13] MEDS: RANOLAZINE E.R. 500 MG TABLET (FP) PO SCH ×2 (12:58→22:19)
--- NOTE | 2018-02-13 13:58 | ECHO ---
Name: ELIZ JIMENEZ Exam:Adult Echocardiogram Study Date: 02/13/2018 09:24 AM Age: 47 yrs Reason For Study: unstable angina Height: 75 in Weight: 265 lb BSA: 2.5 m2 MMode/2D Measurements & Calculations IVSd: 1.1 cm Ao root diam: 4.0 cm LVIDd: 5.0 cm LA dimension: 3.5 cm LVIDs: 3.6 cm ACS: 2.3 cm LVPWd: 0.86 cm IVSs: 1.2 cm LVPWs: 1.4 cm EDV(Teich): 116.3 ml ESV(Teich): 54.7 ml Doppler Measurements & Calculations MV E max anurag: 49.5 cm/sec Ao V2 max: 92.3 cm/sec MV A max anurag: 55.1 cm/sec Ao max P.4 mmHg MV E/A: 0.90 Ao V2 mean: 64.1 cm/sec Ao mean P.8 mmHg Ao V2 VTI: 16.5 cm Med Peak E' Anurag: 6.3 cm/sec Med E/e': 7.9 Lat Peak E' Anurag: 8.7 cm/sec Lat E/e': 5.7 Procedure A complete two-dimensional transthoracic echocardiogram was performed (2D, M-mode, Doppler and color flow Doppler). Left Ventricle The left ventricle is normal in size. Left ventricular systolic function is normal. Ejection Fraction = 55- 60%. No regional wall motion abnormalities noted. Right Ventricle The right ventricle is normal size. The right ventricular systolic function is normal. Atria The left atrial size is normal. Right atrial size is normal. Mitral Valve There is mild mitral annular calcification. There is no mitral regurgitation noted. Tricuspid Valve The tricuspid valve is normal in structure and function. There is trace tricuspid regurgitation. Aortic Valve The aortic valve is normal in structure and function. No aortic regurgitation is present. Pulmonic Valve The pulmonic valve is not well visualized. Great Vessels Moderate aortic root dilatation. Pericardium/Pleura There is no pericardial effusion. Interpretation Summary The left ventricle is normal in size. Left ventricular systolic function is normal. No regional wall motion abnormalities noted. Ejection Fraction = 55-60%. The right ventricular systolic function is normal. The left atrial size is normal. Right atrial size is normal. There is mild mitral annular calcification. There is trace tricuspid regurgitation. Moderate aortic root dilatation. There is no pericardial effusion. Previous study is not available for comparison Tod Delgado MD 02/13/2018 01:58 PM
--- NOTE | 2018-02-13 15:22 | PN ---
Physical Exam: SUBJECTIVE: Patient seen and examined. Says he has chest tightness when walking to the bathroom. Patient also says he has blood in his stools in the last month. He says he has a strong family history of cancer. His father was diagnosed with colon cancer at 54 years old. OBJECTIVE: Vital Signs Period Temp Pulse Resp BP Sys/[place]lin Pulse Ox Last 24 Hr 97.4 F-98.2 F 64-90 18-20 103-139/65-82 98-98 GENERAL: The patient is awake, alert, and fully oriented, in no acute distress. EYES: PERRL, extraocular movements intact ENT:oropharynx clear without exudates, moist mucous membranes. NECK: supple. LUNGS: Breath sounds equal, clear to auscultation bilaterally HEART:RRR, S1 S2, no murmurs appreciated ABDOMEN: Soft, nontender, nondistended EXTREMITIES: 2+ pulses, warm, well-perfused, no edema. NEUROLOGICAL: Cranial nerves II through XII grossly intact Laboratory Results - last 24 hr 02/12/18 02/12/18 02/12/18 15:30 15:30 15:30 WBC 3.8 L RBC 4.39 Hgb 12.4 Hct 36.1 MCV 82.2 MCH 28.2 MCHC 34.3 RDW 15.6 Plt Count 110 L MPV 8.8 Absolute Neuts (auto) 2.7 Neutrophils % 72.0 Lymphocytes % 15.9 Monocytes % 7.5 Eosinophils % 4.3 Basophils % 0.3 Nucleated RBC % 0 PT with INR 12.20 INR 1.03 PTT (Actin FS) 27.6 Sodium 138 Potassium 3.7 Chloride 103 Carbon Dioxide 28 Anion Gap 7 L BUN 11 Creatinine 1.0 Creat Clearance w eGFR > 60 Random Glucose 92 Calcium 8.4 L Phosphorus Magnesium 2.2 Total Bilirubin 0.5 AST 73 H ALT 117 H Alkaline Phosphatase 61 Creatine Kinase 270 Creatine Kinase Index 0.8 CK-MB (CK-2) 2.4 Troponin I < 0.02 B-Natriuretic Peptide Total Protein 7.8 Albumin 3.8 Urine Color Urine Appearance Urine pH Ur Specific [place] Urine Protein Urine Glucose (UA) Urine Ketones Urine Blood Urine Nitrite Urine Bilirubin Urine Urobilinogen Ur Leukocyte Esterase Blood Type Antibody Screen 02/12/18 02/12/18 02/12/18 15:30 18:26 20:55 WBC RBC Hgb Hct MCV MCH MCHC RDW Plt Count MPV Absolute Neuts (auto) Neutrophils % Lymphocytes % Monocytes % Eosinophils % Basophils % Nucleated RBC % PT with INR INR PTT (Actin FS) Sodium Potassium Chloride Carbon Dioxide Anion Gap BUN Creatinine Creat Clearance w eGFR Random Glucose Calcium Phosphorus Magnesium Total Bilirubin AST ALT Alkaline Phosphatase Creatine Kinase Creatine Kinase Index CK-MB (CK-2) Troponin I < 0.02 B-Natriuretic Peptide 23.1 Total Protein Albumin Urine Color Urine Appearance Urine pH Ur Specific [place] Urine Protein Urine Glucose (UA) Urine Ketones Urine Blood Urine Nitrite Urine Bilirubin Urine Urobilinogen Ur Leukocyte Esterase Blood Type A POSITIVE A POSITIVE Antibody Screen Negative 02/12/18 02/13/18 02/13/18 23:00 02:43 05:30 WBC 2.7 L RBC 4.22 Hgb 11.4 L Hct 35.3 L MCV 83.5 MCH 26.9 MCHC 32.2 RDW 15.4 Plt Count 83 L D MPV 8.8 Absolute Neuts (auto) 1.6 Neutrophils % 58.4 Lymphocytes % 24.4 D Monocytes % 11.8 H Eosinophils % 5.2 H Basophils % 0.2 Nucleated RBC % 0 PT with INR INR PTT (Actin FS) Sodium Potassium Chloride Carbon Dioxide Anion Gap BUN Creatinine Creat Clearance w eGFR Random Glucose Calcium Phosphorus Magnesium Total Bilirubin AST ALT Alkaline Phosphatase Creatine Kinase Creatine Kinase Index CK-MB (CK-2) Troponin I < 0.02 B-Natriuretic Peptide Total Protein Albumin Urine Color Straw Urine Appearance Clear Urine pH 7.0 Ur Specific [place] 1.006 L Urine Protein Negative Urine Glucose (UA) Negative Urine Ketones Negative Urine Blood Negative Urine Nitrite Negative Urine Bilirubin Negative Urine Urobilinogen Negative Ur Leukocyte Esterase Negative Blood Type Antibody Screen 02/13/18 02/13/18 05:30 05:30 WBC RBC Hgb Hct MCV MCH MCHC RDW Plt Count MPV Absolute Neuts (auto) Neutrophils % Lymphocytes % Monocytes % Eosinophils % Basophils % Nucleated RBC % PT with INR 12.30 INR 1.04 PTT (Actin FS) 28.5 Sodium 140 Potassium 4.1 Chloride 107 Carbon Dioxide 28 Anion Gap 5 L BUN 10 Creatinine 1.0 Creat Clearance w eGFR > 60 Random Glucose 104 Calcium 8.2 L Phosphorus 3.1 Magnesium 2.2 Total Bilirubin 0.4 AST 56 H ALT 98 H Alkaline Phosphatase 50 Creatine Kinase Creatine Kinase Index CK-MB (CK-2) Troponin I B-Natriuretic Peptide 24.1 Total Protein 6.4 Albumin 3.1 L Urine Color Urine Appearance Urine pH Ur Specific [place] Urine Protein Urine Glucose (UA) Urine Ketones Urine Blood Urine Nitrite Urine Bilirubin Urine Urobilinogen Ur Leukocyte Esterase Blood Type Antibody Screen Active Medications Generic Name Dose Route Start Last Admin Trade Name Freq PRN Reason Stop Dose Admin Amlodipine Besylate 5 mg 02/13/18 10:00 02/13/18 10:07 Norvasc - PO 5 mg DAILY JESSICA Administration Apixaban 5 mg 02/12/18 22:00 02/13/18 10:07 Eliquis - PO 5 mg BID JESSICA Administration Aspirin 81 mg 02/13/18 10:00 02/13/18 10:06 Asa - PO 81 mg DAILY [facility] Administration Atorvastatin Calcium 80 mg 02/13/18 10:00 02/13/18 10:07 Lipitor - PO 80 mg DAILY JESSICA Administration Isosorbide Mononitrate 60 mg 02/13/18 10:00 02/13/18 10:06 Imdur - PO 60 mg DAILY JESSICA Administration Levothyroxine Sodium 50 mcg 02/13/18 10:00 02/13/18 10:09 Synthroid - PO 50 mcg DAILY [facility] Administration Lidocaine 1 patch 02/12/18 22:00 02/13/18 10:07 Lidoderm Patch - TP 1 patch BID [facility] Administration Lisinopril 10 mg 02/13/18 10:00 02/13/18 10:07 Prinivil PO 10 mg DAILY [facility] Administration Nitroglycerin 0.4 mg 02/12/18 18:04 Nitrostat - SL PRN PRN FOR CHEST PAIN Non-Formulary Medication 150 mg 02/13/18 10:00 Methylnaltrexone [place] [Relistor] PO DAILY [facility] Non-Formulary Medication 100 mg 02/12/18 22:00 Metoprolol Succinate [Kapspargo Sprinkle] PO BID [facility] Oxycodone HCl 15 mg 02/12/18 21:14 02/13/18 14:30 Roxicodone - PO 15 mg Q4H PRN Administration PAIN SCALE 5-10 Pantoprazole Sodium 40 mg 02/12/18 19:30 02/13/18 10:07 Protonix - PO 40 mg DAILY [facility] Administration Ranolazine 500 mg 02/13/18 11:45 02/13/18 12:58 Ranexa - PO 500 mg BID JESSICA Administration ASSESSMENT/PLAN: #Unstable Angina - neg trops -tele monitoring -Echo unremarkable. Normal EF -Cardio reccs: Referring to [facility] +/- PCI is problematic given hematochezia and need for prolonged antiplatelet and NOAC use which may also preclude colonoscopy and biopsy -Add Ranexa 500 bid, continue Norvasc 5 qd, Eliquis 5 bid, ASA 81 qd, Lipitor 80 qd, Imdur 60 qd, Lopressor 100 bid, lisinopril 10 qd, SL NTG as needed #Hematochezia -GI consulted -unstable angina, on eliquis. will need GI input prior to catheterization. -stool for occult blood #Hx of DVT -on eliquis -previous thrombophilia workup negative per patient. #HTN -Continue Norvasc, Isosorbide, Lisinopril, Metoprolol #HLD -cont. Atorvastatin #Hypothyroidism -Continue Synthroid. #Elevated Transaminases -likely secondary to hepatic congestion. -FU hep panel -ABD U/S showed diffuse fatty liver. -HIV pending #DVT ppx -Eliquis #GI Px -PPI Visit type - Emergency Visit Emergency Visit: Yes ED Registration Date: 02/13/18 Care time: The patient presented to the Emergency Department on the above date and was hospitalized for further evaluation of their emergent condition. - New Patient This patient is new to me today: Yes Date on this admission: 02/13/18 - Critical Care Critical Care patient: No
--- NOTE | 2018-02-13 16:11 | CON.GI ---
Consult Consult Specialty:: GI Referred by:: Medicine Reason for Consultation:: hematochezia - History of Present Illness Chief Complaint: chest pain History of Present Illness: 47M admitted with unstable angina, with recent positive stress testing. h/o DVT/ PE, recurrent, unprovoked, on Eliquis (last dose this am) To undergo cardiac cath. GI consulted for new onset hematochezia. Patient reports blood mixed with stool on several bm in the last month, increasing in frequency. Also reports that moving bowels more frequently; used to be once a day, more recently 2-3 times a day. Denied abdominal pain but on exam to medical team noted right sided ttp. Unintentional weight loss of 12 lbs - reports that pants are now looser. +FHx father colon cancer age 54, father's brother similar age it was metastatic CRC. NO prior endoscopic evaluation. Of note on labs, is way-cytopenic, and with mild elevation in AST/ALT. Denies ETOH, hepatitis. Had US with fatty liver. - History Source History Provided By: Patient - Past Medical History Cardio/Vascular: Yes: Deep Vein Thrombosis - Past Surgical History Additional Surgical History: knee surgeries - Alcohol/Substance Use Hx Alcohol Use: No - Smoking History Smoking history: Never smoked Home Medications - Allergies Allergies/Adverse Reactions: Allergies Allergy/AdvReac Type Severity Reaction Status Date / Time Penicillins Allergy Verified 02/12/18 14:42 - Home Medications Home Medications: Ambulatory Orders Amlodipine Besylate 5 mg PO DAILY 02/12/18 Apixaban [Eliquis] 5 mg PO BID 02/12/18 Aspirin [ASA -] 81 mg PO DAILY 02/12/18 Atorvastatin Calcium 80 mg PO DAILY 02/12/18 Isosorbide Mononitrate [Isosorbide Mononitrate ER] 60 mg PO DAILY 02/12/18 Levothyroxine [Synthroid -] 50 mcg PO DAILY 02/12/18 Lidocaine 5% Patch [Lidoderm -] 1 patch TP BID 02/12/18 Lisinopril 10 mg PO DAILY 02/12/18 Methylnaltrexone [place] [Relistor] 150 mg PO DAILY 02/12/18 Metoprolol Tartrate 100 mg PO BID 02/12/18 Nitroglycerin Sublingual [Nitrostat -] 0.4 mg SL PRN PRN 02/12/18 Oxycodone HCl 15 mg PO QID PRN 02/12/18 Atorvastatin Ca [Lipitor] 40 mg PO HS 02/13/18 Lisinopril 20 mg PO DAILY 02/13/18 Family Disease History - Family Disease History Family Disease History: Heart Disease: Father (NE @ 54, colon cancer @ 54), Brother (CABG @ 39) Review of Systems - Review of Systems Constitutional: reports: Unintentional Wgt. Loss HENT: reports: No Symptoms Neck: reports: No Symptoms Cardiovascular: reports: Chest Pain Respiratory: reports: SOB Gastrointestinal: reports: Rectal Bleeding Genitourinary: reports: No Symptoms Musculoskeletal: reports: Joint Pain Integumentary: reports: No Symptoms Neurological: reports: No Symptoms Endocrine: reports: No Symptoms Hematology/Lymphatic: denies: No Symptoms Psychiatric: reports: No Symptoms Physical Exam-GI Vital Signs: Vital Signs Temperature 97.4 F L 02/13/18 05:00 Pulse Rate 64 02/13/18 09:00 Respiratory Rate 20 02/13/18 09:00 Blood Pressure 139/82 02/13/18 09:00 O2 Sat by Pulse Oximetry (%) 98 02/13/18 09:00 Constitutional: Yes: Well Nourished, No Distress Eyes: Yes: WNL, Conjunctiva Clear, EOM Intact HENT: Yes: Atraumatic, Normocephalic Neck: Yes: Supple, Trachea Midline Cardiovascular: Yes: Regular Rate and Rhythm Respiratory: Yes: CTA Bilaterally ...Auscultate: Yes: Normoactive Bowel Sounds ...Palpate: Yes: Soft, Tenderness (RLQ ttp) ...Rectal Exam: Yes: Deferred Extremities: Yes: WNL Edema: No Integumentary: Yes: WNL Neurological: Yes: Alert, Oriented Labs: CBC, BMP 02/13/18 05:30 02/13/18 05:30 INR, PTT INR 1.04 (0.83-1.09) 02/13/18 05:30 Hepatic Panel Total Bilirubin 0.4 mg/dL (0.2-1) 02/13/18 05:30 AST 56 U/L (15-37) H 02/13/18 05:30 ALT 98 U/L (13-61) H 02/13/18 05:30 Alkaline Phosphatase 50 U/L (45-117) 02/13/18 05:30 Albumin 3.1 g/dl (3.4-5.0) L 02/13/18 05:30 Imaging - Results Ultrasound: Report Reviewed (fatty liver noted) Assessment/Plan 1. Rectal bleeding, +FHx CRC, and history of unprovoked PEs -of highest concern would be colorectal neoplasm or polyp, hemorrhoids, ectasia - exacerbated by AC. - would check iron studies, ferritin - would plan for colonoscopy on Tuesday - hold Eliquis, if pt needs bridge favor lovenox or heparin, clear liquids on Tuesday, 4L golytely pm, NPO after MN for procedure on Tue - please obtain cardiology clearance prior to procedure 2. Abnormal LFTs and low PLT - would start with hepatitis serologies and complete abdominal US with doppler to assess spleen and portal vein GI service will follow.
--- NOTE | 2018-02-13 17:33 | PN ---
Teaching Attending Note Name of Resident: Nico Reynaga ATTENDING PHYSICIAN STATEMENT I saw and evaluated the patient. I reviewed the resident's note and discussed the case with the resident. I agree with the resident's findings and plan as documented. SUBJECTIVE: No further chest discomfort overnight. Reports 1 month history of red blood per rectum mixed with stools and in blobs that appear to be clots. No fever/chills. No palps/SOB. No abdominal pain/N/V. OBJECTIVE: Afebrile/Hemodynamically stable. Last Vital Signs Temp Pulse Resp BP Pulse Ox 97.4 F L 64 20 139/82 98 02/13/18 05:00 02/13/18 09:00 02/13/18 09:00 02/13/18 09:00 02/13/18 09:00 HEENT - Atraumatic, Normocephalic. HEart - S1, S2, RRR Lungs - clear to auscultation Abdomen - point tenderness RLQ. No guarding or rebound. Bowel Sounds normal. Extremities - Edema 1+. No calf tenderness. Laboratory Results - last 24 hr 02/12/18 02/12/18 02/12/18 18:26 20:55 23:00 WBC RBC Hgb Hct MCV MCH MCHC RDW Plt Count MPV Absolute Neuts (auto) Neutrophils % Lymphocytes % Monocytes % Eosinophils % Basophils % Nucleated RBC % PT with INR INR PTT (Actin FS) Sodium Potassium Chloride Carbon Dioxide Anion Gap BUN Creatinine Creat Clearance w eGFR Random Glucose Calcium Phosphorus Magnesium Total Bilirubin AST ALT Alkaline Phosphatase Troponin I < 0.02 < 0.02 B-Natriuretic Peptide 23.1 Total Protein Albumin Urine Color Urine Appearance Urine pH Ur Specific [place] Urine Protein Urine Glucose (UA) Urine Ketones Urine Blood Urine Nitrite Urine Bilirubin Urine Urobilinogen Ur Leukocyte Esterase Blood Type A POSITIVE 02/13/18 02/13/18 02/13/18 02:43 05:30 05:30 WBC 2.7 L RBC 4.22 Hgb 11.4 L Hct 35.3 L MCV 83.5 MCH 26.9 MCHC 32.2 RDW 15.4 Plt Count 83 L D MPV 8.8 Absolute Neuts (auto) 1.6 Neutrophils % 58.4 Lymphocytes % 24.4 D Monocytes % 11.8 H Eosinophils % 5.2 H Basophils % 0.2 Nucleated RBC % 0 PT with INR 12.30 INR 1.04 PTT (Actin FS) 28.5 Sodium Potassium Chloride Carbon Dioxide Anion Gap BUN Creatinine Creat Clearance w eGFR Random Glucose Calcium Phosphorus Magnesium Total Bilirubin AST ALT Alkaline Phosphatase Troponin I B-Natriuretic Peptide Total Protein Albumin Urine Color Straw Urine Appearance Clear Urine pH 7.0 Ur Specific [place] 1.006 L Urine Protein Negative Urine Glucose (UA) Negative Urine Ketones Negative Urine Blood Negative Urine Nitrite Negative Urine Bilirubin Negative Urine Urobilinogen Negative Ur Leukocyte Esterase Negative Blood Type 02/13/18 05:30 WBC RBC Hgb Hct MCV MCH MCHC RDW Plt Count MPV Absolute Neuts (auto) Neutrophils % Lymphocytes % Monocytes % Eosinophils % Basophils % Nucleated RBC % PT with INR INR PTT (Actin FS) Sodium 140 Potassium 4.1 Chloride 107 Carbon Dioxide 28 Anion Gap 5 L BUN 10 Creatinine 1.0 Creat Clearance w eGFR > 60 Random Glucose 104 Calcium 8.2 L Phosphorus 3.1 Magnesium 2.2 Total Bilirubin 0.4 AST 56 H ALT 98 H Alkaline Phosphatase 50 Troponin I B-Natriuretic Peptide 24.1 Total Protein 6.4 Albumin 3.1 L Urine Color Urine Appearance Urine pH Ur Specific [place] Urine Protein Urine Glucose (UA) Urine Ketones Urine Blood Urine Nitrite Urine Bilirubin Urine Urobilinogen Ur Leukocyte Esterase Blood Type Current Medications Generic Name Dose Route Start Last Admin Trade Name Freq PRN Reason Stop Dose Admin Amlodipine Besylate 5 mg 02/13/18 10:00 02/13/18 10:07 Norvasc - PO 5 mg DAILY JESSICA Administration Aspirin 81 mg 02/13/18 10:00 02/13/18 10:06 Asa - PO 81 mg DAILY JESSICA Administration Atorvastatin Calcium 80 mg 02/13/18 10:00 02/13/18 10:07 Lipitor - PO 80 mg DAILY JESSICA Administration Bisacodyl 20 mg 02/14/18 16:18 Dulcolax - PO 02/14/18 16:19 ONCE ONE Enoxaparin Sodium 120 mg 02/13/18 17:30 Lovenox - SQ 02/14/18 23:00 Q12H JESSICA Isosorbide Mononitrate 60 mg 02/13/18 10:00 02/13/18 10:06 Imdur - PO 60 mg DAILY JESSICA Administration Levothyroxine Sodium 50 mcg 02/13/18 10:00 02/13/18 10:09 Synthroid - PO 50 mcg DAILY JESSICA Administration Lidocaine 1 patch 02/12/18 22:00 02/13/18 10:07 Lidoderm Patch - TP 1 patch BID JESSICA Administration Lisinopril 10 mg 02/13/18 10:00 02/13/18 10:07 Prinivil PO 10 mg DAILY JESSICA Administration Metoprolol Succinate 100 mg 02/12/18 22:00 Toprol Xl - PO BID JESSICA Nitroglycerin 0.4 mg 02/12/18 18:04 Nitrostat - SL PRN PRN FOR CHEST PAIN Non-Formulary Medication 150 mg 02/13/18 10:00 Methylnaltrexone [place] [Relistor] PO DAILY JESSICA Oxycodone HCl 15 mg 02/12/18 21:14 02/13/18 14:30 Roxicodone - PO 15 mg Q4H PRN Administration PAIN SCALE 5-10 Pantoprazole Sodium 40 mg 02/12/18 19:30 02/13/18 10:07 Protonix - PO 40 mg DAILY JESSICA Administration Polyethylene Glycol/Electrolytes 4,000 ml 02/14/18 16:18 Golytely Solution - PO 02/14/18 16:19 ONCE ONE Ranolazine 500 mg 02/13/18 11:45 02/13/18 12:58 Ranexa - PO 500 mg BID JESSICA Administration ASSESSMENT AND PLAN: 47 year old male with Hx DVT/recurrent PEs (2014, 2017 x 2, last 11/15 - at which time he was switched from Coumadin to Eliquis), CAD (s/p 2 positive stress tests - 1 [place] 08[place]09 [place] and another ECG/exercise Stress 12/[address] [facility]), never proceeded to Cath despite the recommendation by Cardiology at [facility] to do so, worsening exertional chest pain, now with almost daily chest discomfort, sometimes occurring at rest, relieved by nitroglycerin. He is currently admitted after 2 episodes of chest pain 02/12 (one after climbing 3 flights of stairs and the other at rest, both relieved within minutes by NTG). He had associated diaphoresis. Denies palpitations, SOB, Nausea , vomiting. Currently pain-free. He also complains of 1 month history of Hematochezia without abdominal discomfort, nausea, or vomiting. Positive FH for both Colon Ca and CAD- Father had NM and Colon Ca at age 54, Brother underwent CABG at age 39. Other brother also has Colon Ca. 1. Unstable Angina sec to underlying CAD - has rest episodes of CP with 2 prior positive stress tests in the past 6 months. Troponin negative x 3. Chest pain free since admission. Continue ASA, BB, SELWYN, Statin. Evaluated by Cardio and started on Ranexa. Echo - normal EF, no wall motion abnormalities. Needs Cardiac Cath but optimization prior including GI eval for Hematochezia. 2. Hx DVT with recurrent/multiple PEs s/p IVC filter Previously on Coumadin - switched to Eliquis. No respiratory distress, SpO2 97% RA Thrombophilia work-up reportedly negative in the past. 3. HTN - Continue Norvasc, Isosorbide, Lisinopril, Metoprolol 4. HLD - Continue Atorvastatin 5. Hypothyroidism - Continue Synthroid. 6. Elevated Transaminases - Limited Abdominal US shows fatty liver. GI recommends more comprehensive Abdo US including doppler. Hepatitis panel pending. 7. Hematochezia - for the past month. FH of Colon Ca. Evaluated by GI - for Colonoscopy 02/15. Hold Eliquis - bridge with Lovenox. Monitor H/H. 8. Pancytopenia (Anemia/Thrombocytopenia, Leukopenia) - etiology unclear. Hepatitis and HIV serology requested. Full Abdominal US requested to exclude Cirrhosis. If negative, will consider Hematology consult. Anemia work-up pending. DVT Px - Eliquis held - for Lovenox bridging. GI Px - PPI
[2018-02-13] MEDS: ENOXAPARIN NA (PORCINE) 120 MG/0.8 ML DISP.SYRIN SQ SCH (18:30)
[2018-02-14] MEDS: oxyCODONE HCL 5 MG TABLET PO PRN ×6 (02:55→23:46)
[2018-02-14 03:16] LABS: HEP.C VIRUS AB >11.0 s/co ratio (0.0-0.9)
[2018-02-14] MEDS: ENOXAPARIN NA (PORCINE) 120 MG/0.8 ML DISP.SYRIN SQ SCH ×2 (06:19→17:24)
[2018-02-14 06:59] LABS: HEMATOCRIT 33.2 % (35.4-49); HEMOGLOBIN 11.6 GM/dL (11.7-16.9); MCH 28.4 pg (25.7-33.7); MCHC 34.8 g/dl (32.0-35.9); MEAN CELL VOLUME 81.7 fl (80-96); MEAN PLT VOLUME 8.9 fl (7.5-11.1); PLATELET COUNT 86 K/MM3 (134-434); RBC 4.07 M/mm3 (4.00-5.60); RDW 15.6 % (11.9-15.9); WHITE BLOOD COUNT 2.3 K/mm3 (4.0-10.0)
[2018-02-14 07:41] LABS: ALK PHOS 49 U/L (45-117); ANION GAP 5 MMOL/L (8-16); BILIRUBIN,TOTAL 0.3 mg/dL (0.2-1); BLOOD UREA NITROGEN 14 mg/dL (7-18); CALCIUM 8.3 mg/dL (8.5-10.1); CHLORIDE 108 mmol/L (98-107); CO2 28 mmol/L (21-32); CREATININE 0.9 mg/dL (0.55-1.3); GLUCOSE,RANDOM 99 mg/dL (74-106); PHOSPHOROUS 3.2 mg/dL (2.5-4.9); SGOT/AST 55 U/L (15-37); SGPT/ALT 96 U/L (13-61); SODIUM 141 mmol/L (136-145); TOT PROT 6.6 g/dl (6.4-8.2)
--- NOTE | 2018-02-14 08:06 | PN ---
Physical Exam: SUBJECTIVE: Patient seen and examined this AM. He states that he is not having any pain currently though it comes and goes. He states he had a bowel movement yesterday with minimal blood. He also endorses difficulty lying down flat stating that he begins to feel like he is under water. OBJECTIVE: Vital Signs Period Temp Pulse Resp BP Sys/Franklin Pulse Ox Last 24 Hr 97.7 F-98.4 F 64-88 18-20 113-139/61-82 98-98 GENERAL: A&O, no acute distress HEAD: Normocephalic, atraumatic. EYES: PERRL, no scleral icterus EARS, NOSE, THROAT: oropharynx clear without exudates. Moist mucous membranes. NECK: supple without lymphadenopathy LUNGS: CTA b/l, no crackles or wheezes HEART: Regular rate and rhythm, normal S1 and S2 without murmur ABDOMEN: Soft, nontender to palpation, normoactive bowel sounds EXTREMITIES: 2+ pulses, warm, well-perfused. No peripheral edema. NEUROLOGICAL: Cranial nerves II-XII grossly intact. Normal speech. Laboratory Results - last 24 hr 02/12/18 02/13/18 02/14/18 20:55 05:30 05:15 WBC RBC Hgb Hct MCV MCH MCHC RDW Plt Count MPV Sodium 140 Potassium 4.1 Chloride 107 Carbon Dioxide 28 Anion Gap 5 L BUN 10 Creatinine 1.0 Creat Clearance w eGFR > 60 Random Glucose 104 Calcium 8.2 L Phosphorus 3.1 Magnesium 2.2 Ferritin Total Bilirubin 0.4 AST 56 H ALT 98 H Alkaline Phosphatase 50 LD Total 152 Creatine Kinase 172 Creatine Kinase Index 0.8 CK-MB (CK-2) 1.5 Troponin I < 0.02 B-Natriuretic Peptide 24.1 Total Protein 6.4 Albumin 3.1 L Triglycerides 96 Cholesterol 64 Total LDL Cholesterol 34 HDL Cholesterol 18 L Vitamin B12 370 Serum Folate 12 TSH 1.23 Hepatitis A IgM Ab Negative Hep Bs Antigen Negative Hep B Core IgM Ab Negative Hepatitis C Antibody >11.0 H 02/14/18 02/14/18 05:50 05:50 WBC 2.3 L RBC 4.07 Hgb 11.6 L Hct 33.2 L MCV 81.7 MCH 28.4 MCHC 34.8 RDW 15.6 Plt Count 86 L MPV 8.9 Sodium 141 Potassium 4.0 Chloride 108 H Carbon Dioxide 28 Anion Gap 5 L BUN 14 Creatinine 0.9 Creat Clearance w eGFR > 60 Random Glucose 99 Calcium 8.3 L Phosphorus 3.2 Magnesium 2.0 Ferritin 13.6 Total Bilirubin 0.3 AST 55 H ALT 96 H Alkaline Phosphatase 49 LD Total Creatine Kinase Creatine Kinase Index CK-MB (CK-2) Troponin I B-Natriuretic Peptide Total Protein 6.6 Albumin 3.0 L Triglycerides Cholesterol Total LDL Cholesterol HDL Cholesterol Vitamin B12 Serum Folate TSH Hepatitis A IgM Ab Hep Bs Antigen Hep B Core IgM Ab Hepatitis C Antibody Active Medications Generic Name Dose Route Start Last Admin Trade Name Freq PRN Reason Stop Dose Admin Amlodipine Besylate 5 mg 02/13/18 10:00 02/13/18 10:07 Norvasc - PO 5 mg DAILY JESSICA Administration Aspirin 81 mg 02/13/18 10:00 02/13/18 10:06 Asa - PO 81 mg DAILY [facility] Administration Atorvastatin Calcium 80 mg 02/13/18 10:00 02/13/18 10:07 Lipitor - PO 80 mg DAILY JESSICA Administration Bisacodyl 20 mg 02/14/18 16:18 Dulcolax - PO 02/14/18 16:19 ONCE ONE Enoxaparin Sodium 120 mg 02/13/18 17:30 02/14/18 06:19 Lovenox - SQ 02/14/18 23:00 120 mg Q12H JESSICA Administration Isosorbide Mononitrate 60 mg 02/13/18 10:00 02/13/18 10:06 Imdur - PO 60 mg DAILY [facility] Administration Levothyroxine Sodium 50 mcg 02/13/18 10:00 02/13/18 10:09 Synthroid - PO 50 mcg DAILY [facility] Administration Lidocaine 1 patch 02/12/18 22:00 02/13/18 22:27 Lidoderm Patch - TP Not Given BID [facility] Lisinopril 10 mg 02/13/18 10:00 02/13/18 10:07 Prinivil PO 10 mg DAILY [facility] Administration Metoprolol Succinate 100 mg 02/12/18 22:00 02/13/18 22:20 Toprol Xl - PO 100 mg BID [facility] Administration Nitroglycerin 0.4 mg 02/12/18 18:04 Nitrostat - SL PRN PRN FOR CHEST PAIN Non-Formulary Medication 150 mg 02/13/18 10:00 Methylnaltrexone [place] [Relistor] PO DAILY [facility] Oxycodone HCl 15 mg 02/12/18 21:14 02/14/18 06:51 Roxicodone - PO 15 mg Q4H PRN Administration PAIN SCALE 5-10 Pantoprazole Sodium 40 mg 02/12/18 19:30 02/13/18 10:07 Protonix - PO 40 mg DAILY JESSICA Administration Polyethylene Glycol/Electrolytes 4,000 ml 02/14/18 16:18 Golytely Solution - PO 02/14/18 16:19 ONCE ONE Ranolazine 500 mg 02/13/18 11:45 02/13/18 22:19 Ranexa - PO 500 mg BID JESSICA Administration ASSESSMENT/PLAN: 47 y/o gentleman with a significant past medical history of HTN, HLD, positive stress test in [place] 6 months ago, positive stress test [facility] November 2017, hypothyroidism, DVT (2011 s/p R Knee surgery), Pulmonary embolism (2014), Pulmonary embolism Mar 2017 (started on Coumadin), another PE Oct 2017 ( Coumadin switched to eliquis), IVC filter placement admitted with complaint of left sided chest pain. CAD with Unstable Angina -Troponins negative -[address]/T wave abnormalities -Pt has had 2 positive stress tests in the last 6 months and has been told he will need PCI -Cardiology consult appreciated -Echo noted with normal EF and no wall motion abnormalities -Ranexa 500 mg BID Hematochezia -Pt reports intermittent hematochezia for about one month -Family hx of Colon Ca in father at 54 -GI consultation appreciated -For Colonoscopy in the AM -Trend H/H Recurrent DVT/PEs with IVC Filter -Pt reports negative hypercoagulable workup in the past -On Eliquis 5 mg PO BID, though currently held for Colonoscopy -Lovenox 120 mg SQ BID HTN -Lisinopril 10 mg PO Daily -Toprol XL 100 mg PO BID -Imdur 60 mg PO Daily -Norvasc 5 mg PO Daily Hypothyroidism -Synthroid 50 mcg PO AM HLD -Lipitor 80 mg PO HS Transaminitis -Pt denies alcohol use -Hep C Ab positive, will order viral load as pt denies ever being vaccinated for Hep C -US revealed fatty liver disease Pancytopenia -unknown etiology, could be secondary to malignant process -will continue to monitor and consider Heme/Onc consultation pending CBC trend and Colonoscopy results -Full Abdominal US with view of spleen ordered DVT Prophylaxis -Eliquis held for colonoscopy -Lovenox 120 mg SQ BID FEN -Fluids: none -Electrolytes: No electrolyte abnormalities, BMP in AM -Nutrition: Clear liquids Disposition Telemetry Visit type - Emergency Visit Emergency Visit: Yes ED Registration Date: 02/13/18 Care time: The patient presented to the Emergency Department on the above date and was hospitalized for further evaluation of their emergent condition. - New Patient This patient is new to me today: Yes Date on this admission: 02/14/18 - Critical Care Critical Care patient: No
--- NOTE | 2018-02-14 08:29 | PN ---
Teaching Attending Note Name of Resident: Holland Godoy ATTENDING PHYSICIAN STATEMENT I saw and evaluated the patient. I reviewed the resident's note and discussed the case with the resident. I agree with the resident's findings and plan as documented with exceptions below. SUBJECTIVE: Patient seen and examined. no chest pain, dyspnea, abdominal pain, nausea or vomiting. 1 BM yesterday with some blood streaking. OBJECTIVE: Vital Signs Period Temp Pulse Resp BP Sys/Franklin Pulse Ox Last 24 Hr 97.7 F-98.4 F 64-88 18-20 113-139/61-82 98-98 Intake & Output 02/11/18 02/12/18 02/13/18 02/14/18 23:59 23:59 23:59 23:59 Intake Total 60 680 100 Output Total 300 Balance 60 380 100 Weight 265 lb General: sitting in bed in no acute distress Chest: CTAB, no rales or wheezing Abdomen: soft, NT, ND, positive bowel sounds Extremities: no edema Home Medications Medication Instructions Recorded Amlodipine Besylate 5 mg PO DAILY 02/12/18 Apixaban [Eliquis] 5 mg PO BID 02/12/18 Aspirin [ASA -] 81 mg PO DAILY 02/12/18 Atorvastatin Calcium 80 mg PO DAILY 02/12/18 Isosorbide Mononitrate [Isosorbide 60 mg PO DAILY 02/12/18 Mononitrate ER] Levothyroxine [Synthroid -] 50 mcg PO DAILY 02/12/18 Lidocaine 5% Patch [Lidoderm -] 1 patch TP BID 02/12/18 Lisinopril 10 mg PO DAILY 02/12/18 Methylnaltrexone [place] [Relistor] 150 mg PO DAILY 02/12/18 Metoprolol Tartrate 100 mg PO BID 02/12/18 Nitroglycerin Sublingual 0.4 mg SL PRN PRN 02/12/18 [Nitrostat -] Oxycodone HCl 15 mg PO QID PRN 02/12/18 Atorvastatin Ca [Lipitor] 40 mg PO HS 02/13/18 Lisinopril 20 mg PO DAILY 02/13/18 Active Medications Amlodipine Besylate (Norvasc -) 5 mg PO DAILY [facility] Last Admin: 02/13/18 10:07 Dose: 5 mg Aspirin (Asa -) 81 mg PO DAILY [facility] Last Admin: 02/13/18 10:06 Dose: 81 mg Atorvastatin Calcium (Lipitor -) 80 mg PO DAILY [facility] Last Admin: 02/13/18 10:07 Dose: 80 mg Bisacodyl (Dulcolax -) 20 mg PO ONCE ONE Stop: 02/14/18 16:19 Enoxaparin Sodium (Lovenox -) 120 mg SQ Q12H [facility] Stop: 02/14/18 23:00 Last Admin: 02/14/18 06:19 Dose: 120 mg Isosorbide Mononitrate (Imdur -) 60 mg PO DAILY [facility] Last Admin: 02/13/18 10:06 Dose: 60 mg Levothyroxine Sodium (Synthroid -) 50 mcg PO DAILY [facility] Last Admin: 02/13/18 10:09 Dose: 50 mcg Lidocaine (Lidoderm Patch -) 1 patch TP BID [facility] Last Admin: 02/13/18 22:27 Dose: Not Given Lisinopril (Prinivil) 10 mg PO DAILY [facility] Last Admin: 02/13/18 10:07 Dose: 10 mg Metoprolol Succinate (Toprol Xl -) 100 mg PO BID [facility] Last Admin: 02/13/18 22:20 Dose: 100 mg Nitroglycerin (Nitrostat -) 0.4 mg SL PRN PRN PRN Reason: FOR CHEST PAIN Non-Formulary Medication (Methylnaltrexone [place] [Relistor]) 150 mg PO DAILY [facility] Oxycodone HCl (Roxicodone -) 15 mg PO Q4H PRN PRN Reason: PAIN SCALE 5-10 Last Admin: 02/14/18 06:51 Dose: 15 mg Pantoprazole Sodium (Protonix -) 40 mg PO DAILY [facility] Last Admin: 02/13/18 10:07 Dose: 40 mg Polyethylene Glycol/Electrolytes (Golytely Solution -) 4,000 ml PO ONCE ONE Stop: 02/14/18 16:19 Ranolazine (Ranexa -) 500 mg PO BID [facility] Last Admin: 02/13/18 22:19 Dose: 500 mg Laboratory Results - last 24 hr 02/12/18 02/13/18 02/14/18 20:55 05:30 05:15 WBC RBC Hgb Hct MCV MCH MCHC RDW Plt Count MPV Sodium 140 Potassium 4.1 Chloride 107 Carbon Dioxide 28 Anion Gap 5 L BUN 10 Creatinine 1.0 Creat Clearance w eGFR > 60 Random Glucose 104 Calcium 8.2 L Phosphorus 3.1 Magnesium 2.2 Ferritin Total Bilirubin 0.4 AST 56 H ALT 98 H Alkaline Phosphatase 50 LD Total 152 Creatine Kinase 172 Creatine Kinase Index 0.8 CK-MB (CK-2) 1.5 Troponin I < 0.02 B-Natriuretic Peptide 24.1 Total Protein 6.4 Albumin 3.1 L Triglycerides 96 Cholesterol 64 Total LDL Cholesterol 34 HDL Cholesterol 18 L Vitamin B12 370 Serum Folate 12 TSH 1.23 Hepatitis A IgM Ab Negative Hep Bs Antigen Negative Hep B Core IgM Ab Negative Hepatitis C Antibody >11.0 H 02/14/18 02/14/18 05:50 05:50 WBC 2.3 L RBC 4.07 Hgb 11.6 L Hct 33.2 L MCV 81.7 MCH 28.4 MCHC 34.8 RDW 15.6 Plt Count 86 L MPV 8.9 Sodium 141 Potassium 4.0 Chloride 108 H Carbon Dioxide 28 Anion Gap 5 L BUN 14 Creatinine 0.9 Creat Clearance w eGFR > 60 Random Glucose 99 Calcium 8.3 L Phosphorus 3.2 Magnesium 2.0 Ferritin 13.6 Total Bilirubin 0.3 AST 55 H ALT 96 H Alkaline Phosphatase 49 LD Total Creatine Kinase Creatine Kinase Index CK-MB (CK-2) Troponin I B-Natriuretic Peptide Total Protein 6.6 Albumin 3.0 L Triglycerides Cholesterol Total LDL Cholesterol HDL Cholesterol Vitamin B12 Serum Folate TSH Hepatitis A IgM Ab Hep Bs Antigen Hep B Core IgM Ab Hepatitis C Antibody 2D echo results noted ASSESSMENT AND PLAN: 47 year old male with Hx DVT/recurrent PEs (2014, 2017 x 2, last 11/15 - at which time he was switched from Coumadin to Eliquis), CAD (s/p 2 positive stress tests - 1 NM stress 08/09 ago in [place] and another ECG/exercise Stress 12/15 at [facility]), never proceeded to Cath despite the recommendation by Cardiology at [facility] to do so, worsening exertional chest pain, now with almost daily chest discomfort, sometimes occurring at rest, relieved by nitroglycerin. He is currently admitted after 2 episodes of chest pain 02/12 (one after climbing 3 flights of stairs and the other at rest, both relieved within minutes by NTG). He had associated diaphoresis. Denies palpitations, SOB, Nausea , vomiting. Currently pain-free. He also complains of 1 month history of Hematochezia without abdominal discomfort, nausea, or vomiting. Positive FH for both Colon Ca and CAD- Father had NM and Colon Ca at age 54, Brother underwent CABG at age 39. Other brother also has Colon Ca. -Unstable Angina sec to underlying CAD - has rest episodes of CP with 2 prior positive stress tests in the past 6 months. -Hematocheziax 1 month (FH of colon Ca) -h/o DVT/multiple PEs on Eliquis/s/p IVC filter -Pancytopenia -Elevated transaminases -HTN -HLD -Hypothyroidism Plan: Cardiology input noted, ranexa added. 2D echo results reviewed. Continue ASA/beta andrea/ACEi/statin. Needs cardiac cath after GI optimization for hematochezia. GI input noted. Eliquis held. Lovenox q12h, hold tomorrow dose for colonoscopy. Clears for today. Trend LFTs, hep C ab positive. Check HCV viral load. Follow up with GI. Follow up HIV, comprehensive Abdo US with doppler. HEmatology input for pancytopenia if above w/u unrevealing. Continue Norvasc, Isosorbide, Lisinopril, Metoprolol, statin. Synthroid. GIPPX PPI DVTPPX full dose lovenox Dispo dc vs transfer for cardiac cath pending GI work up. Plan discussed with patient in detail, all questions answered.
[2018-02-14] MEDS: amLODIPine BESYLATE 5 MG TABLET (FP) PO SCH (09:14)
[2018-02-14] MEDS: PANTOPRAZOLE 40 MG TABLET (FP) PO SCH (09:14)
[2018-02-14] MEDS: RANOLAZINE E.R. 500 MG TABLET (FP) PO SCH ×2 (09:14→22:05)
[2018-02-14] MEDS: ASPIRIN 81 MG CHEWABLE TABLETS PO SCH (09:14)
[2018-02-14] MEDS: ISOSORBIDE MONONITRATE 60 MG TAB.SR.24H (FP) PO SCH (09:14)
[2018-02-14] MEDS: ATORVASTATIN CA 80 MG TABLET (FP) PO SCH (09:14)
[2018-02-14] MEDS: LEVOTHYROXINE NA 50 MCG TABLET (FP) PO SCH (09:15)
[2018-02-14] MEDS: LISINOPRIL 10 MG TABLET (FP) PO SCH (09:15)
[2018-02-14] MEDS: LIDOCAINE 5% TOPICAL PATCH TP SCH ×2 (09:15→22:06)
--- NOTE | 2018-02-14 12:56 | PN ---
Progress Note, Physician Chief Complaint: Events noted Not in distress History of Present Illness: Patient was seen and examined. Awake and alert. Chart was reviewed Denies chest pain at the moment. Denies SOB or palpitations. Medical records from [facility] system reviewed. Stress echocardiography (January 2018) revealed anteroseptal ischemia - Current Medication List Current Medications: Active Medications Amlodipine Besylate (Norvasc -) 5 mg PO DAILY [facility] Last Admin: 02/14/18 09:14 Dose: 5 mg Aspirin (Asa -) 81 mg PO DAILY [facility] Last Admin: 02/14/18 09:14 Dose: 81 mg Atorvastatin Calcium (Lipitor -) 80 mg PO DAILY [facility] Last Admin: 02/14/18 09:14 Dose: 80 mg Bisacodyl (Dulcolax -) 20 mg PO ONCE ONE Stop: 02/14/18 16:19 Enoxaparin Sodium (Lovenox -) 120 mg SQ Q12H [facility] Stop: 02/14/18 23:00 Last Admin: 02/14/18 06:19 Dose: 120 mg Isosorbide Mononitrate (Imdur -) 60 mg PO DAILY [facility] Last Admin: 02/14/18 09:14 Dose: 60 mg Levothyroxine Sodium (Synthroid -) 50 mcg PO DAILY [facility] Last Admin: 02/14/18 09:15 Dose: 50 mcg Lidocaine (Lidoderm Patch -) 1 patch TP BID [facility] Last Admin: 02/14/18 09:15 Dose: 1 patch Lisinopril (Prinivil) 10 mg PO DAILY [facility] Last Admin: 02/14/18 09:15 Dose: 10 mg Metoprolol Succinate (Toprol Xl -) 100 mg PO BID [facility] Last Admin: 02/14/18 09:15 Dose: 100 mg Nitroglycerin (Nitrostat -) 0.4 mg SL PRN PRN PRN Reason: FOR CHEST PAIN Non-Formulary Medication (Methylnaltrexone [place] [Relistor]) 150 mg PO DAILY [facility] Oxycodone HCl (Roxicodone -) 15 mg PO Q4H PRN PRN Reason: PAIN SCALE 5-10 Last Admin: 02/14/18 11:10 Dose: 15 mg Pantoprazole Sodium (Protonix -) 40 mg PO DAILY [facility] Last Admin: 02/14/18 09:14 Dose: 40 mg Polyethylene Glycol/Electrolytes (Golytely Solution -) 4,000 ml PO ONCE ONE Stop: 02/14/18 16:19 Ranolazine (Ranexa -) 500 mg PO BID [facility] Last Admin: 02/14/18 09:14 Dose: 500 mg - Objective Vital Signs: Vital Signs Temperature 98 F 02/14/18 09:00 Pulse Rate 80 02/14/18 09:00 Respiratory Rate 18 02/14/18 09:00 Blood Pressure 130/77 02/14/18 09:00 O2 Sat by Pulse Oximetry (%) 98 02/14/18 04:00 Constitutional: Yes: Well Nourished Eyes: Yes: PERRL HENT: Yes: Atraumatic Neck: Yes: Supple Cardiovascular: Yes: Regular Rate and Rhythm, S1, S2. No: Murmur Respiratory: Yes: CTA Bilaterally Gastrointestinal: Yes: Normal Bowel Sounds, Soft. No: Tenderness Edema: No Additional Findings/Remarks: - Review of Systems Constitutional: denies: Chills, Fever Cardiovascular: denies: Chest Pain, Palpitations, Shortness of Breath Respiratory: denies: Cough, Hemoptysis, Orthopnea, PND, SOB, SOB on Exertion Gastrointestinal: denies: Abdominal Pain, Constipation, Diarrhea, Melena, Nausea , Rectal Bleeding, Vomiting Genitourinary: denies: Dysuria, Hematuria Musculoskeletal: denies: Back Pain, Joint Pain Neurological: denies: Headache, Syncope. denies: Confusion, Dizziness, Numbness , Parasthesia, Seizure, Unsteady Gait, Weakness Labs: CBC, BMP 02/14/18 05:50 02/14/18 05:50 INR, PTT INR 1.04 (0.83-1.09) 02/13/18 05:30 Problem List - Problems (1) Chest pain Code(s): R07.9 - CHEST PAIN, UNSPECIFIED (2) Chronic anticoagulation Code(s): Z79.01 - MANAGER LVN (CURRENT) USE OF ANTICOAGULANTS (3) Family history of malignant neoplasm of colon in first degree relative diagnosed when younger than 60 years of age Code(s): Z80.0 - FAMILY HISTORY OF MALIGNANT NEOPLASM OF DIGESTIVE ORGANS (4) Family history of premature coronary artery disease Code(s): Z82.49 - FAMILY HX OF ISCHEM HEART DIS AND OTH DIS OF [facility] (5) H/O deep venous thrombosis Code(s): Z86.718 - PERSONAL HISTORY OF OTHER VENOUS THROMBOSIS AND EMBOLISM (6) Hematochezia Code(s): K92.1 - MELENA (7) History of pulmonary embolism Code(s): Z86.711 - PERSONAL HISTORY OF PULMONARY EMBOLISM (8) Hyperlipidemia Code(s): E78.5 - HYPERLIPIDEMIA, UNSPECIFIED Qualifiers: Hyperlipidemia type: pure hypercholesterolemia Qualified Code(s): E78.00 - Pure hypercholesterolemia, unspecified; E78.0 - Pure hypercholesterolemia (9) Hypothyroidism Code(s): E03.9 - HYPOTHYROIDISM, UNSPECIFIED Qualifiers: Hypothyroidism type: unspecified Qualified Code(s): E03.9 - Hypothyroidism , unspecified (10) Progressive angina Code(s): I20.0 - UNSTABLE ANGINA Assessment/Plan 1. CAD with progressive angina, s/p abnormal stress test (Nuclear MPI and stress echocardiography) 2. History of DVT/recurrent PE currently on DOAC/Eliquis and s/p IVC filter 3. Diastolic dysfunction 4. Family history of premature CAD 5. Hematochezia with family h/o colon CA 6. Hypothyroidism 7. T11 compression fracture 8. Pancytopenua PLAN: 1. Echocardiography reviewed 2. Medical records reviewed 3. Continue Ranexa 500 mg BID, continue Norvasc 5 mg QD, Eliquis 5 mg BID ( currently held), ASA 81 mg QD, Lipitor 80 mg QD, Imdur 60 mg QD, Lopressor 100 mg BID and Lisinopril 10 mg QD, 4. GI work up in progress 5. Cardiac catheterization afterwards in view of above cardiac history. May pursue it while he is inpatient Further plans are to follow Tod Delgado MD
[2018-02-14] MEDS ORDERED: PEG 3350/NA SULF BICARB CL/KCL 4000 ML SOLN.RECON PO ONE (16:18)
[2018-02-14] MEDS ORDERED: BISACODYL 5 MG TABLET.DR (FP) PO ONE (16:18)
--- NOTE | 2018-02-14 17:49 | PN ---
GI Progress Note Subjective: No acute events Denies CP/SOB Reviewed cardiology note - Objective Vital Signs: Vital Signs Temperature 98 F 02/14/18 09:00 Pulse Rate 80 02/14/18 09:00 Respiratory Rate 18 02/14/18 09:00 Blood Pressure 130/77 02/14/18 09:00 O2 Sat by Pulse Oximetry (%) 98 02/14/18 04:00 Constitutional: Calm Eyes: No: Sclera Icterus Cardiovascular: Yes: Regular Rate and Rhythm Respiratory: Yes: CTA Bilaterally Gastrointestinal Inspection: No: Distention ...Auscultate: Yes: Normoactive Bowel Sounds ...Palpate: No: Tenderness Edema: No (No LE edema) Neurological: Yes: Alert Labs: CBC, BMP 02/14/18 05:50 02/14/18 05:50 INR, PTT INR 1.04 (0.83-1.09) 02/13/18 05:30 Problem List - Problems (1) Hematochezia Assessment/Plan: given anticipated need for antiplatelet therapy on top of anticoagulation and Mr. Quiroga's family history of colon cancer, pre-cath colonoscopy has been discussed. I reviewed the procedure with Mr. Quiroga again this evening and discussed potential risks of the procedure like but not limited to bleeding, perforation requiring surgery to repair, infection and sedation medication effects all of which could be potentially life threatening. He has agreed to the procedure and consent was obtained. For now: NPO after midnight except meds with small sips water Consider hematology evaluation of pancytopenia Hold AM dose of Lovenox AM labs Code(s): K92.1 - MELENA
[2018-02-15] MEDS: oxyCODONE HCL 5 MG TABLET PO PRN ×4 (04:11→19:15)
[2018-02-15 04:17] LABS: SERUM IRON SATURATION 14 % (15-55); TOTAL IRON BINDING CAPACITY 348 ug/dL (250-450); UIBC 298 ug/dL (111-343)
[2018-02-15 06:48] LABS: BASO % 0.3 % (0-2.0); EOS % 4.6 % (0-4.5); HEMATOCRIT 33.9 % (35.4-49); HEMOGLOBIN 11.8 GM/dL (11.7-16.9); LYMPH % 22.6 % (8-40); MCH 28.7 pg (25.7-33.7); MCHC 34.8 g/dl (32.0-35.9); MEAN CELL VOLUME 82.4 fl (80-96); MONO % 10.8 % (3.8-10.2); NEUT % 61.7 % (42.8-82.8); PLATELET COUNT 91 K/MM3 (134-434); RBC 4.12 M/mm3 (4.00-5.60); RDW 16.1 % (11.9-15.9); WHITE BLOOD COUNT 2.8 K/mm3 (4.0-10.0)
[2018-02-15 07:29] LABS: ANION GAP 7 MMOL/L (8-16); BLOOD UREA NITROGEN 10 mg/dL (7-18); CHLORIDE 106 mmol/L (98-107); CO2 28 mmol/L (21-32); CREATININE 0.8 mg/dL (0.55-1.3); GLUCOSE,RANDOM 86 mg/dL (74-106); POTASSIUM 3.8 mmol/L (3.5-5.1); SODIUM 141 mmol/L (136-145)
--- NOTE | 2018-02-15 08:45 | PN ---
Physical Exam: SUBJECTIVE: Patient seen and examined this AM. He currently Denies any complaints. He states that he felt he has adequately prepped overnight, but the colonoscopy was unable to to be completed. Of note pt does endorse his typical chest pain some overnight when he was standing up to hurry to the bathroom. OBJECTIVE: Vital Signs Period Temp Pulse Resp BP Sys/[place]lin Pulse Ox Last 24 Hr 97.7 F-98.4 F 80-94 18-18 118-137/62-90 94 GENERAL: A&O, no acute distress HEAD: Normocephalic, atraumatic. EYES: PERRL, no scleral icterus EARS, NOSE, THROAT: oropharynx clear without exudates. Moist mucous membranes. NECK: supple without lymphadenopathy LUNGS: CTA b/l, no crackles or wheezes HEART: Regular rate and rhythm, normal S1 and S2 without murmur ABDOMEN: Soft, nontender to palpation, normoactive bowel sounds EXTREMITIES: 2+ pulses, warm, well-perfused. No peripheral edema. NEUROLOGICAL: Cranial nerves II-XII grossly intact. Normal speech. Laboratory Results - last 24 hr 02/13/18 02/14/18 02/14/18 13:30 05:50 13:20 WBC RBC Hgb Hct MCV MCH MCHC RDW Plt Count MPV Absolute Neuts (auto) Neutrophils % Lymphocytes % Monocytes % Eosinophils % Basophils % Nucleated RBC % Sodium Potassium Chloride Carbon Dioxide Anion Gap BUN Creatinine Creat Clearance w eGFR Random Glucose Calcium Iron 50 TIBC 348 Iron Saturation 14 L HIV Genotype TNP HIV 1&2 Antibody Screen Negative HIV P24 Antigen Negative 02/15/18 02/15/18 05:30 05:30 WBC 2.8 L RBC 4.12 Hgb 11.8 Hct 33.9 L MCV 82.4 MCH 28.7 MCHC 34.8 RDW 16.1 H Plt Count 91 L MPV 9.0 Absolute Neuts (auto) 1.7 Neutrophils % 61.7 Lymphocytes % 22.6 Monocytes % 10.8 H Eosinophils % 4.6 H Basophils % 0.3 Nucleated RBC % 0 Sodium 141 Potassium 3.8 Chloride 106 Carbon Dioxide 28 Anion Gap 7 L BUN 10 Creatinine 0.8 Creat Clearance w eGFR > 60 Random Glucose 86 Calcium 8.0 L Iron TIBC Iron Saturation HIV Genotype HIV 1&2 Antibody Screen HIV P24 Antigen Active Medications Generic Name Dose Route Start Last Admin Trade Name Freq PRN Reason Stop Dose Admin Amlodipine Besylate 5 mg 02/13/18 10:00 02/14/18 09:14 Norvasc - PO 5 mg DAILY [facility] Administration Aspirin 81 mg 02/13/18 10:00 02/14/18 09:14 Asa - PO 81 mg DAILY [facility] Administration Atorvastatin Calcium 80 mg 02/13/18 10:00 02/14/18 09:14 Lipitor - PO 80 mg DAILY [facility] Administration Isosorbide Mononitrate 60 mg 02/13/18 10:00 02/14/18 09:14 Imdur - PO 60 mg DAILY [facility] Administration Levothyroxine Sodium 50 mcg 02/13/18 10:00 02/14/18 09:15 Synthroid - PO 50 mcg DAILY [facility] Administration Lidocaine 1 patch 02/12/18 22:00 02/14/18 22:06 Lidoderm Patch - TP 1 patch BID [facility] Administration Lisinopril 10 mg 02/13/18 10:00 02/14/18 09:15 Prinivil PO 10 mg DAILY [facility] Administration Metoprolol Succinate 100 mg 02/12/18 22:00 02/14/18 22:05 Toprol Xl - PO 100 mg BID [facility] Administration Nitroglycerin 0.4 mg 02/12/18 18:04 Nitrostat - SL PRN PRN FOR CHEST PAIN Non-Formulary Medication 150 mg 02/13/18 10:00 Methylnaltrexone [place] [Relistor] PO DAILY [facility] Oxycodone HCl 15 mg 02/12/18 21:14 02/15/18 04:11 Roxicodone - PO 15 mg Q4H PRN Administration PAIN SCALE 5-10 Pantoprazole Sodium 40 mg 02/12/18 19:30 02/14/18 09:14 Protonix - PO 40 mg DAILY [facility] Administration Ranolazine 500 mg 02/13/18 11:45 02/14/18 22:05 Ranexa - PO 500 mg BID [facility] Administration ASSESSMENT/PLAN: 47 y/o gentleman with a significant past medical history of HTN, HLD, positive stress test in [place] 6 months ago, positive stress test [facility] November 2017, hypothyroidism, DVT (2011 s/p R Knee surgery), Pulmonary embolism (2014), Pulmonary embolism Mar 2017 (started on Coumadin), another PE Oct 2017 ( Coumadin switched to eliquis), IVC filter placement admitted with complaint of left sided chest pain. CAD with Unstable Angina -Troponins negative -[address]/T wave abnormalities -Pt has had 2 positive stress tests in the last 6 months and has been told he will need PCI -Cardiology consult appreciated, will likely be transferred later this week for PCI -Echo noted with normal EF and no wall motion abnormalities -Ranexa 500 mg BID Hematochezia -Pt reports intermittent hematochezia for about one month -Family hx of Colon Ca in father at 54 -GI consultation appreciated -Inadequately prepped for Colonoscopy this AM, will reattempt in the AM following Miralax prep this evening -Trend H/H, currently stable Recurrent DVT/PEs with IVC Filter -Pt reports negative hypercoagulable workup in the past -On Eliquis 5 mg PO BID, though currently held for Colonoscopy -Lovenox 120 mg SQ BID HTN -Lisinopril 10 mg PO Daily -Toprol XL 100 mg PO BID -Imdur 60 mg PO Daily -Norvasc 5 mg PO Daily Hypothyroidism -Synthroid 50 mcg PO AM HLD -Lipitor 80 mg PO HS Transaminitis -Pt denies alcohol use -Hep C Ab positive, RNA PCR pending -US revealed fatty liver disease Pancytopenia -unknown etiology, could be secondary to malignant process -will continue to monitor and consider Heme/Onc consultation pending CBC trend and Colonoscopy results -Full Abdominal US with view of spleen ordered DVT Prophylaxis -Eliquis held for colonoscopy -Lovenox 120 mg SQ BID FEN -Fluids: none -Electrolytes: No electrolyte abnormalities, BMP in AM -Nutrition: Clear liquids, NPO at midnight except meds with sips Disposition Telemetry Visit type - Emergency Visit Emergency Visit: Yes ED Registration Date: 02/13/18 Care time: The patient presented to the Emergency Department on the above date and was hospitalized for further evaluation of their emergent condition. - New Patient This patient is new to me today: No - Critical Care Critical Care patient: No
[2018-02-15] MEDS: ATORVASTATIN CA 80 MG TABLET (FP) PO SCH (10:52)
[2018-02-15] MEDS: PANTOPRAZOLE 40 MG TABLET (FP) PO SCH (10:53)
[2018-02-15] MEDS: LISINOPRIL 10 MG TABLET (FP) PO SCH (10:53)
[2018-02-15] MEDS: amLODIPine BESYLATE 5 MG TABLET (FP) PO SCH (10:53)
[2018-02-15] MEDS: LIDOCAINE 5% TOPICAL PATCH TP SCH ×2 (10:53→21:51)
[2018-02-15] MEDS: RANOLAZINE E.R. 500 MG TABLET (FP) PO SCH ×2 (10:53→21:51)
[2018-02-15] MEDS: ISOSORBIDE MONONITRATE 60 MG TAB.SR.24H (FP) PO SCH (10:53)
[2018-02-15] MEDS: LEVOTHYROXINE NA 50 MCG TABLET (FP) PO SCH (10:53)
[2018-02-15] MEDS: ASPIRIN 81 MG CHEWABLE TABLETS PO SCH (10:54)
--- NOTE | 2018-02-15 10:56 | PN ---
Progress Note, Physician History of Present Illness: No further exertional angina, inadequate prep precluded full visualization of colon, plan for repeat tomorrow. - Current Medication List Current Medications: Active Medications Amlodipine Besylate (Norvasc -) 5 mg PO DAILY [facility] Last Admin: 02/14/18 09:14 Dose: 5 mg Aspirin (Asa -) 81 mg PO DAILY [facility] Last Admin: 02/14/18 09:14 Dose: 81 mg Atorvastatin Calcium (Lipitor -) 80 mg PO DAILY [facility] Last Admin: 02/14/18 09:14 Dose: 80 mg Isosorbide Mononitrate (Imdur -) 60 mg PO DAILY [facility] Last Admin: 02/14/18 09:14 Dose: 60 mg Levothyroxine Sodium (Synthroid -) 50 mcg PO DAILY [facility] Last Admin: 02/14/18 09:15 Dose: 50 mcg Lidocaine (Lidoderm Patch -) 1 patch TP BID [facility] Last Admin: 02/14/18 22:06 Dose: 1 patch Lisinopril (Prinivil) 10 mg PO DAILY [facility] Last Admin: 02/14/18 09:15 Dose: 10 mg Metoprolol Succinate (Toprol Xl -) 100 mg PO BID [facility] Last Admin: 02/14/18 22:05 Dose: 100 mg Nitroglycerin (Nitrostat -) 0.4 mg SL PRN PRN PRN Reason: FOR CHEST PAIN Non-Formulary Medication (Methylnaltrexone [place] [Relistor]) 150 mg PO DAILY [facility] Oxycodone HCl (Roxicodone -) 15 mg PO Q4H PRN PRN Reason: PAIN SCALE 5-10 Last Admin: 02/15/18 04:11 Dose: 15 mg Pantoprazole Sodium (Protonix -) 40 mg PO DAILY [facility] Last Admin: 02/14/18 09:14 Dose: 40 mg Polyethylene Glycol (Miralax (For Bowel Prep) -) 255 gm PO ONCE ONE Stop: 02/15/18 17:01 Ranolazine (Ranexa -) 500 mg PO BID [facility] Last Admin: 02/14/18 22:05 Dose: 500 mg - Objective Vital Signs: Vital Signs Temperature 97.4 F L 02/15/18 09:46 Pulse Rate 75 02/15/18 10:22 Respiratory Rate 18 02/15/18 10:22 Blood Pressure 110/60 02/15/18 10:22 O2 Sat by Pulse Oximetry (%) 98 02/15/18 10:22 Constitutional: Yes: No Distress, Calm Neck: Yes: Supple Cardiovascular: Yes: Regular Rate and Rhythm Respiratory: Yes: Regular, CTA Bilaterally Gastrointestinal: Yes: Soft, Hypoactive Bowel Sounds, Rectal Bleeding Edema: No Labs: CBC, BMP 02/15/18 05:30 02/15/18 05:30 INR, PTT INR 1.04 (0.83-1.09) 02/13/18 05:30 - ....Imaging EKG: Report Reviewed (Tele: SB) Problem List - Problems (1) Progressive angina Code(s): I20.0 - UNSTABLE ANGINA (2) History of pulmonary embolism Code(s): Z86.711 - PERSONAL HISTORY OF PULMONARY EMBOLISM (3) H/O deep venous thrombosis Code(s): Z86.718 - PERSONAL HISTORY OF OTHER VENOUS THROMBOSIS AND EMBOLISM (5) Chronic anticoagulation Code(s): Z79.01 - BASIC SCIENCES PROFESSOR (CURRENT) USE OF ANTICOAGULANTS (6) Hematochezia Code(s): K92.1 - MELENA (7) Family history of malignant neoplasm of colon in first degree relative diagnosed when younger than 60 years of age Code(s): Z80.0 - FAMILY HISTORY OF MALIGNANT NEOPLASM OF DIGESTIVE ORGANS (8) Family history of premature coronary artery disease Code(s): Z82.49 - FAMILY HX OF ISCHEM HEART DIS AND OTH DIS OF THE [facility] (9) Hypothyroidism Code(s): E03.9 - HYPOTHYROIDISM, UNSPECIFIED Qualifiers: Hypothyroidism type: unspecified Qualified Code(s): E03.9 - Hypothyroidism , unspecified (10) Hyperlipidemia Code(s): E78.5 - HYPERLIPIDEMIA, UNSPECIFIED Qualifiers: Hyperlipidemia type: pure hypercholesterolemia Qualified Code(s): E78.00 - Pure hypercholesterolemia, unspecified; E78.0 - Pure hypercholesterolemia Assessment/Plan 11/29/2017 Echo: Mild cLVH, normal LVEF 55-60%, normal diastolic fxn, mod LAE, normal RV size and fxn 11/30/2017 Stress echo: Anteroseptal ischemia 02/13/2018 Echo: Normal RV and LV size and fxn LVEF 55-60%, normal biatrial sizes, mildly dilated ao 4.0 cm 1. CAD with progressive angina and LAD ischemia via Nuclear MPI and stress echocardiography 2. History of DVT/recurrent PE currently on DOAC/Eliquis and s/p IVC filter 3. Diastolic dysfunction 4. Family history of premature CAD 5. Hematochezia with family h/o colon CA 6. Hypothyroidism 7. T11 compression fracture with need for spinal fusion 8. Pancytopenua PLAN: 1. Previous cardiology studies and medical records reviewed 2. Continue Ranexa 500 mg BID, Norvasc 5 mg QD, Eliquis 5 mg BID (currently held and on Lovenox), ASA 81 mg QD, Lipitor 80 mg QD, Imdur 60 mg QD, Lopressor 100 mg BID and Lisinopril 10 mg QD, 3. Repeat colonoscopy is planned for tomorrow 4. Cardiac catheterization afterwards in view of above cardiac history. May pursue it while he is inpatient
--- NOTE | 2018-02-15 13:55 | PN ---
Teaching Attending Note Name of Resident: Holland Godoy ATTENDING PHYSICIAN STATEMENT I saw and evaluated the patient. I reviewed the resident's note and discussed the case with the resident. I agree with the resident's findings and plan as documented with exceptions below. SUBJECTIVE: Patient seen and examined. multiple BM overnight from bowel prep, non bloody. Had an episode of chest pain last night, similar to his prior anginal episodes, resolved with no intervention. OBJECTIVE: Vital Signs Period Temp Pulse Resp BP Sys/Franklin Pulse Ox Last 24 Hr 97.4 F-98.4 F 60-94 17-18 110-148/55-90 94-100 Intake & Output 02/12/18 02/13/18 02/14/18 02/15/18 23:59 23:59 23:59 23:59 Intake Total 60 040 915 3964 Output Total 300 Balance 60 733 558 4092 Weight 265 lb General: sitting in bed in no acute distress Chest: CTAB, no rales or wheezing Abdomen:Soft, NT, ND, positive bowel sounds Extremities: no edema Home Medications Medication Instructions Recorded Amlodipine Besylate 5 mg PO DAILY 02/12/18 Apixaban [Eliquis] 5 mg PO BID 02/12/18 Aspirin [ASA -] 81 mg PO DAILY 02/12/18 Atorvastatin Calcium 80 mg PO DAILY 02/12/18 Isosorbide Mononitrate [Isosorbide 60 mg PO DAILY 02/12/18 Mononitrate ER] Levothyroxine [Synthroid -] 50 mcg PO DAILY 02/12/18 Lidocaine 5% Patch [Lidoderm -] 1 patch TP BID 02/12/18 Lisinopril 10 mg PO DAILY 02/12/18 Methylnaltrexone [place] [Relistor] 150 mg PO DAILY 02/12/18 Metoprolol Tartrate 100 mg PO BID 02/12/18 Nitroglycerin Sublingual 0.4 mg SL PRN PRN 02/12/18 [Nitrostat -] Oxycodone HCl 15 mg PO QID PRN 02/12/18 Atorvastatin Ca [Lipitor] 40 mg PO HS 02/13/18 Lisinopril 20 mg PO DAILY 02/13/18 Active Medications Amlodipine Besylate (Norvasc -) 5 mg PO DAILY [facility] Last Admin: 02/15/18 10:53 Dose: 5 mg Aspirin (Asa -) 81 mg PO DAILY [facility] Last Admin: 02/15/18 10:54 Dose: 81 mg Atorvastatin Calcium (Lipitor -) 80 mg PO DAILY [facility] Last Admin: 02/15/18 10:52 Dose: 80 mg Enoxaparin Sodium (Lovenox -) 120 mg SQ ONCE ONE Stop: 02/15/18 18:01 Isosorbide Mononitrate (Imdur -) 60 mg PO DAILY [facility] Last Admin: 02/15/18 10:53 Dose: 60 mg Levothyroxine Sodium (Synthroid -) 50 mcg PO DAILY [facility] Last Admin: 02/15/18 10:53 Dose: 50 mcg Lidocaine (Lidoderm Patch -) 1 patch TP BID [facility] Last Admin: 02/15/18 10:53 Dose: 1 patch Lisinopril (Prinivil) 10 mg PO DAILY [facility] Last Admin: 02/15/18 10:53 Dose: 10 mg Metoprolol Succinate (Toprol Xl -) 100 mg PO BID [facility] Last Admin: 02/15/18 10:55 Dose: 100 mg Nitroglycerin (Nitrostat -) 0.4 mg SL PRN PRN PRN Reason: FOR CHEST PAIN Non-Formulary Medication (Methylnaltrexone [place] [Relistor]) 150 mg PO DAILY [facility] Oxycodone HCl (Roxicodone -) 15 mg PO Q4H PRN PRN Reason: PAIN SCALE 5-10 Last Admin: 02/15/18 15:14 Dose: 15 mg Pantoprazole Sodium (Protonix -) 40 mg PO DAILY [facility] Last Admin: 02/15/18 10:53 Dose: 40 mg Polyethylene Glycol (Miralax (For Bowel Prep) -) 255 gm PO ONCE ONE Stop: 02/15/18 17:01 Ranolazine (Ranexa -) 500 mg PO BID [facility] Last Admin: 02/15/18 10:53 Dose: 500 mg Laboratory Results - last 24 hr 02/14/18 02/15/18 02/15/18 05:50 05:30 05:30 WBC 2.8 L RBC 4.12 Hgb 11.8 Hct 33.9 L MCV 82.4 MCH 28.7 MCHC 34.8 RDW 16.1 H Plt Count 91 L MPV 9.0 Absolute Neuts (auto) 1.7 Neutrophils % 61.7 Lymphocytes % 22.6 Monocytes % 10.8 H Eosinophils % 4.6 H Basophils % 0.3 Nucleated RBC % 0 Sodium 141 Potassium 3.8 Chloride 106 Carbon Dioxide 28 Anion Gap 7 L BUN 10 Creatinine 0.8 Creat Clearance w eGFR > 60 Random Glucose 86 Calcium 8.0 L Iron 50 TIBC 348 Iron Saturation 14 L ASSESSMENT AND PLAN: 47 year old male with Hx DVT/recurrent PEs (2014, 2017 x 2, last 11/15 - at which time he was switched from Coumadin to Eliquis), CAD (s/p 2 positive stress tests - 1 NM stress 08/09 ago in [place] and another ECG/exercise Stress 12/15 at [facility]), never proceeded to Cath despite the recommendation by Cardiology at [facility] to do so, worsening exertional chest pain, now with almost daily chest discomfort, sometimes occurring at rest, relieved by nitroglycerin. He is currently admitted after 2 episodes of chest pain 02/12 (one after climbing 3 flights of stairs and the other at rest, both relieved within minutes by NTG). He had associated diaphoresis. Denies palpitations, SOB, Nausea , vomiting. Currently pain-free. He also complains of 1 month history of Hematochezia without abdominal discomfort, nausea, or vomiting. Positive FH for both Colon Ca and CAD- Father had AL and Colon Ca at age 54, Brother underwent CABG at age 39. Other brother also has Colon Ca. -Unstable Angina sec to underlying CAD - has rest episodes of CP with 2 prior positive stress tests in the past 6 months. -Hematocheziax 1 month (FH of colon Ca) -h/o DVT/multiple PEs on Eliquis/s/p IVC filter -Pancytopenia -Elevated transaminases -HTN -HLD -Hypothyroidism Plan: Cardiology input noted, ranexa added. 2D echo results reviewed. Continue ASA/beta andrea/ACEi/statin. Needs cardiac cath after GI optimization for hematochezia. GI input noted. Eliquis held. Lovenox q12h Incomplete bowel prep today, discussed with Dr. Owens, repeat colonscopy tomorrow, miralax prep. Lovenox evening dose, hold in AM. Trend LFTs, hep C ab positive. Check HCV viral load. Follow up with GI. Follow up HIV, comprehensive Abdo US with doppler. Hematology input for pancytopenia Continue Norvasc, Isosorbide, Lisinopril, Metoprolol, statin. Synthroid. GIPPX PPI DVTPPX full dose lovenox Dispo dc vs transfer for cardiac cath pending GI work up. Plan discussed with patient in detail, all questions answered. Discussed with Dr. Owens/Dr. Degroot.
--- NOTE | 2018-02-15 15:13 | PN ---
Progress Note (short form) - Note Progress Note: Brief GI note Colonoscopy performed today revealing poor prep, solid stool seen throughout the colon that could not be effectively cleaned. Internal hemorrhoids seen however not able to exclude other underlying lesions (ie. polyps, avms). -Recommend resume clear liquid diet today and start miralax prep at 5pm (ordered ), pt refused to take colytely again. -Keep NPOpMN -Check CBC, BMP in am -Hold AM lovenox dose Discussed with medicine and cardiology teams
[2018-02-15] MEDS ORDERED: POLYETHYLENE GLYCOL 3350 255 GM BTL PO ONE (17:00)
[2018-02-15] MEDS ORDERED: ENOXAPARIN NA (PORCINE) 120 MG/0.8 ML DISP.SYRIN SQ ONE (18:00)
[2018-02-15] MEDS ORDERED: oxyCODONE HCL 5 MG TABLET PO PRN ×2 (23:25→23:28)
[2018-02-16] MEDS ORDERED: morphine CARPU-JECT 2 MG/1 ML DISP.SYRIN IVPUSH ONE (04:51)
[2018-02-16] MEDS ORDERED: oxyCODONE HCL 5 MG TABLET ONE (05:04)
[2018-02-16] MEDS: oxyCODONE HCL 5 MG TABLET PO PRN ×5 (05:08→23:27)
[2018-02-16 06:54] LABS: HEMATOCRIT 37.4 % (35.4-49); HEMOGLOBIN 12.8 GM/dL (11.7-16.9); MCH 28.1 pg (25.7-33.7); MCHC 34.2 g/dl (32.0-35.9); MEAN CELL VOLUME 82.3 fl (80-96); MEAN PLT VOLUME 8.9 fl (7.5-11.1); PLATELET COUNT 110 K/MM3 (134-434); RBC 4.55 M/mm3 (4.00-5.60); RDW 16.2 % (11.9-15.9); WHITE BLOOD COUNT 3.4 K/mm3 (4.0-10.0)
[2018-02-16 07:03] LABS: ANION GAP 6 MMOL/L (8-16); BLOOD UREA NITROGEN 10 mg/dL (7-18); CALCIUM 8.3 mg/dL (8.5-10.1); CHLORIDE 106 mmol/L (98-107); CO2 29 mmol/L (21-32); GLUCOSE,RANDOM 86 mg/dL (74-106); MAGNESIUM 2.2 mg/dL (1.8-2.4); POTASSIUM 3.8 mmol/L (3.5-5.1); SODIUM 141 mmol/L (136-145)
--- NOTE | 2018-02-16 07:43 | PN ---
Teaching Attending Note Name of Resident: Holland Godoy ATTENDING PHYSICIAN STATEMENT I saw and evaluated the patient. I reviewed the resident's note and discussed the case with the resident. I agree with the resident's findings and plan as documented with exceptions below. SUBJECTIVE: Patient seen and examined. Multiple additional BM overnight, no blood. Had an episode of chest pain/dyspnea after walking to the vending machine. OBJECTIVE: Vital Signs Period Temp Pulse Resp BP Sys/Franklin Pulse Ox Last 24 Hr 97.4 F-98.4 F 60-82 17-20 106-154/55-82 95-100 Intake & Output 02/13/18 02/14/18 02/15/18 02/16/18 23:59 23:59 23:59 23:59 Intake Total 052 715 9242 Output Total 300 Balance 441 325 2565 General: sitting in bed in no acute distress Chest:CTAB, no rales or wheezing Abdomen: soft, NT, ND Extremities: no edema Active Medications Amlodipine Besylate (Norvasc -) 5 mg PO DAILY [facility] Last Admin: 02/15/18 10:53 Dose: 5 mg Aspirin (Asa -) 81 mg PO DAILY [facility] Last Admin: 02/15/18 10:54 Dose: 81 mg Atorvastatin Calcium (Lipitor -) 80 mg PO DAILY [facility] Last Admin: 02/15/18 10:52 Dose: 80 mg Isosorbide Mononitrate (Imdur -) 60 mg PO DAILY [facility] Last Admin: 02/15/18 10:53 Dose: 60 mg Levothyroxine Sodium (Synthroid -) 50 mcg PO DAILY [facility] Last Admin: 02/15/18 10:53 Dose: 50 mcg Lidocaine (Lidoderm Patch -) 1 patch TP BID [facility] Last Admin: 02/15/18 21:51 Dose: 1 patch Lisinopril (Prinivil) 10 mg PO DAILY [facility] Last Admin: 02/15/18 10:53 Dose: 10 mg Metoprolol Succinate (Toprol Xl -) 100 mg PO BID [facility] Last Admin: 02/15/18 21:51 Dose: 100 mg Nitroglycerin (Nitrostat -) 0.4 mg SL PRN PRN PRN Reason: FOR CHEST PAIN Non-Formulary Medication (Methylnaltrexone [place] [Relistor]) 150 mg PO DAILY [facility] Oxycodone HCl (Roxicodone -) 15 mg PO Q4H PRN PRN Reason: PAIN LEVEL 6-10 Last Admin: 02/16/18 05:08 Dose: 15 mg Pantoprazole Sodium (Protonix -) 40 mg PO DAILY [facility] Last Admin: 02/15/18 10:53 Dose: 40 mg Ranolazine (Ranexa -) 500 mg PO BID [facility] Last Admin: 02/15/18 21:51 Dose: 500 mg Laboratory Results - last 24 hr 02/15/18 02/16/18 02/16/18 05:30 05:30 05:30 WBC 2.8 L 3.4 L RBC 4.12 4.55 Hgb 11.8 12.8 Hct 33.9 L 37.4 MCV 82.4 82.3 MCH 28.7 28.1 MCHC 34.8 34.2 RDW 16.1 H 16.2 H Plt Count 91 L 110 L D MPV 9.0 8.9 Absolute Neuts (auto) 1.7 Neutrophils % 61.7 Lymphocytes % 22.6 Monocytes % 10.8 H Eosinophils % 4.6 H Basophils % 0.3 Nucleated RBC % 0 Sodium 141 Potassium 3.8 Chloride 106 Carbon Dioxide 29 Anion Gap 6 L BUN 10 Creatinine 1.0 Creat Clearance w eGFR > 60 Random Glucose 86 Calcium 8.3 L Phosphorus 3.0 Magnesium 2.2 ASSESSMENT AND PLAN: 47 year old male with Hx DVT/recurrent PEs (2014, 2017 x 2, last 11/15 - at which time he was switched from Coumadin to Eliquis), CAD (s/p 2 positive stress tests - 1 NM stress 08/09 ago in [place] and another ECG/exercise Stress 12/15 at [facility]), never proceeded to Cath despite the recommendation by Cardiology at [facility] to do so, worsening exertional chest pain, now with almost daily chest discomfort, sometimes occurring at rest, relieved by nitroglycerin. He is currently admitted after 2 episodes of chest pain 02/12 (one after climbing 3 flights of stairs and the other at rest, both relieved within minutes by NTG). He had associated diaphoresis. Denies palpitations, SOB, Nausea , vomiting. Currently pain-free. He also complains of 1 month history of Hematochezia without abdominal discomfort, nausea, or vomiting. Positive FH for both Colon Ca and CAD- Father had NH and Colon Ca at age 54, Brother underwent CABG at age 39. Other brother also has Colon Ca. -Unstable Angina sec to underlying CAD - has rest episodes of CP with 2 prior positive stress tests in the past 6 months. -Hematocheziax 1 month (FH of colon Ca) -h/o DVT/multiple PEs on Eliquis/s/p IVC filter -Pancytopenia -Elevated transaminases -HTN -HLD -Hypothyroidism Plan: Cardiology input noted, ranexa added. 2D echo results reviewed. Continue ASA/beta andrea/ACEi/statin. Needs cardiac cath after GI optimization for hematochezia. GI input noted. Eliquis held. Lovenox q12h, held this AM, resume eliquis vs lovenox post procedure based on colonoscopy findings. Repeat colonoscopy today, follow up. Trend LFTs, hep C ab positive. Follow up HCV viral load. Follow up with GI. HIV screen neg comprehensive Abdo US with doppler noted. Hematology input for pancytopenia Continue Norvasc, Isosorbide, Lisinopril, Metoprolol, statin. Synthroid. GIPPX PPI DVTPPX full dose lovenox Dispo dc vs transfer for cardiac cath pending GI work up. Plan discussed with patient in detail, all questions answered.
--- NOTE | 2018-02-16 08:30 | PN ---
Physical Exam: SUBJECTIVE: Patient seen and examined this AM. He states he spent most of the night in the bathroom and is currently having very loose watery stools with very little stool content, mostly just water. States he had some chest pain on exertion overnight as well. OBJECTIVE: Vital Signs Period Temp Pulse Resp BP Sys/Franklin Pulse Ox Last 24 Hr 97.4 F-98.4 F 60-82 17-20 106-154/55-82 95-100 GENERAL: A&O, no acute distress HEAD: Normocephalic, atraumatic. EYES: PERRL, no scleral icterus EARS, NOSE, THROAT: oropharynx clear without exudates. Moist mucous membranes. NECK: supple without lymphadenopathy LUNGS: CTA b/l, no crackles or wheezes HEART: Regular rate and rhythm, normal S1 and S2 without murmur ABDOMEN: Soft, nontender to palpation, normoactive bowel sounds EXTREMITIES: 2+ pulses, warm, well-perfused. No peripheral edema. NEUROLOGICAL: Cranial nerves II-XII grossly intact. Normal speech. Laboratory Results - last 24 hr 02/15/18 02/16/18 02/16/18 05:30 05:30 05:30 WBC 2.8 L 3.4 L RBC 4.12 4.55 Hgb 11.8 12.8 Hct 33.9 L 37.4 MCV 82.4 82.3 MCH 28.7 28.1 MCHC 34.8 34.2 RDW 16.1 H 16.2 H Plt Count 91 L 110 L D MPV 9.0 8.9 Absolute Neuts (auto) 1.7 Neutrophils % 61.7 Lymphocytes % 22.6 Monocytes % 10.8 H Eosinophils % 4.6 H Basophils % 0.3 Nucleated RBC % 0 Sodium 141 Potassium 3.8 Chloride 106 Carbon Dioxide 29 Anion Gap 6 L BUN 10 Creatinine 1.0 Creat Clearance w eGFR > 60 Random Glucose 86 Calcium 8.3 L Phosphorus 3.0 Magnesium 2.2 Active Medications Generic Name Dose Route Start Last Admin Trade Name Freq PRN Reason Stop Dose Admin Amlodipine Besylate 5 mg 02/13/18 10:00 02/15/18 10:53 Norvasc - PO 5 mg DAILY JESSICA Administration Aspirin 81 mg 02/13/18 10:00 02/15/18 10:54 Asa - PO 81 mg DAILY JESSICA Administration Atorvastatin Calcium 80 mg 02/13/18 10:00 02/15/18 10:52 Lipitor - PO 80 mg DAILY JESSICA Administration Isosorbide Mononitrate 60 mg 02/13/18 10:00 02/15/18 10:53 Imdur - PO 60 mg DAILY JESSICA Administration Levothyroxine Sodium 50 mcg 02/13/18 10:00 02/15/18 10:53 Synthroid - PO 50 mcg DAILY JESSICA Administration Lidocaine 1 patch 02/12/18 22:00 02/15/18 21:51 Lidoderm Patch - TP 1 patch BID JESSICA Administration Lisinopril 10 mg 02/13/18 10:00 02/15/18 10:53 Prinivil PO 10 mg DAILY JESSICA Administration Metoprolol Succinate 100 mg 02/12/18 22:00 02/15/18 21:51 Toprol Xl - PO 100 mg BID JESSICA Administration Nitroglycerin 0.4 mg 02/12/18 18:04 Nitrostat - SL PRN PRN FOR CHEST PAIN Non-Formulary Medication 150 mg 02/13/18 10:00 Methylnaltrexone [place] [Relistor] PO DAILY [facility] Oxycodone HCl 15 mg 02/16/18 04:56 02/16/18 05:08 Roxicodone - PO 15 mg Q4H PRN Administration PAIN LEVEL 6-10 Pantoprazole Sodium 40 mg 02/12/18 19:30 02/15/18 10:53 Protonix - PO 40 mg DAILY JESSICA Administration Ranolazine 500 mg 02/13/18 11:45 02/15/18 21:51 Ranexa - PO 500 mg BID JESSICA Administration ASSESSMENT/PLAN: 47 y/o gentleman with a significant past medical history of HTN, HLD, positive stress test in [place] 6 months ago, positive stress test [facility] November 2017, hypothyroidism, DVT (2011 s/p R Knee surgery), Pulmonary embolism (2014), Pulmonary embolism Mar 2017 (started on Coumadin), another PE Oct 2017 ( Coumadin switched to eliquis), IVC filter placement admitted with complaint of left sided chest pain. CAD with Unstable Angina -Troponins negative -[address]/T wave abnormalities -Pt has had 2 positive stress tests in the last 6 months and has been told he will need PCI -Cardiology consult appreciated, will likely be transferred later this week for PCI -Echo noted with normal EF and no wall motion abnormalities -Ranexa 500 mg BID Hematochezia -Pt reports intermittent hematochezia for about one month -Family hx of Colon Ca in father at 54 -GI consultation appreciated -Repeat Colonoscopy this AM -For EGD tomorrow -Trend H/H, currently stable Recurrent DVT/PEs with IVC Filter -Pt reports negative hypercoagulable workup in the past -On Eliquis 5 mg PO BID, though currently held for Colonoscopy -Lovenox 120 mg SQ BID HTN -Lisinopril 10 mg PO Daily -Toprol XL 100 mg PO BID -Imdur 60 mg PO Daily -Norvasc 5 mg PO Daily Hypothyroidism -Synthroid 50 mcg PO AM HLD -Lipitor 80 mg PO HS Transaminitis -Pt denies alcohol use -Hep C Ab positive, RNA PCR positive -New diagnosis of HCV -With HCV, fatty liver, and splenomegaly, for EGD in AM to r/o varices Pancytopenia -unknown etiology, could be secondary to malignant process -will continue to monitor and consider Heme/Onc consultation pending CBC trend and Colonoscopy results -Splenic US with mildly enlarged spleen DVT Prophylaxis -Eliquis held for colonoscopy -Lovenox 120 mg SQ BID FEN -Fluids: none -Electrolytes: No electrolyte abnormalities, BMP in AM -Nutrition: Resume diet as per GI following Colonoscopy Disposition Telemetry Visit type - Emergency Visit Emergency Visit: Yes ED Registration Date: 02/13/18 Care time: The patient presented to the Emergency Department on the above date and was hospitalized for further evaluation of their emergent condition. - New Patient This patient is new to me today: No - Critical Care Critical Care patient: No
[2018-02-16] MEDS: RANOLAZINE E.R. 500 MG TABLET (FP) PO SCH ×2 (10:00→21:33)
--- NOTE | 2018-02-16 10:18 | PN ---
Progress Note, Physician History of Present Illness: Occasional episodes of exertional angina, inadequate prep precluded full visualization of colon, plan for repeat today. - Current Medication List Current Medications: Active Medications Amlodipine Besylate (Norvasc -) 5 mg PO DAILY [facility] Last Admin: 02/15/18 10:53 Dose: 5 mg Aspirin (Asa -) 81 mg PO DAILY [facility] Last Admin: 02/15/18 10:54 Dose: 81 mg Atorvastatin Calcium (Lipitor -) 80 mg PO DAILY [facility] Last Admin: 02/15/18 10:52 Dose: 80 mg Isosorbide Mononitrate (Imdur -) 60 mg PO DAILY [facility] Last Admin: 02/15/18 10:53 Dose: 60 mg Levothyroxine Sodium (Synthroid -) 50 mcg PO DAILY [facility] Last Admin: 02/15/18 10:53 Dose: 50 mcg Lidocaine (Lidoderm Patch -) 1 patch TP BID [facility] Last Admin: 02/15/18 21:51 Dose: 1 patch Lisinopril (Prinivil) 10 mg PO DAILY [facility] Last Admin: 02/15/18 10:53 Dose: 10 mg Metoprolol Succinate (Toprol Xl -) 100 mg PO BID [facility] Last Admin: 02/16/18 09:46 Dose: 100 mg Nitroglycerin (Nitrostat -) 0.4 mg SL PRN PRN PRN Reason: FOR CHEST PAIN Non-Formulary Medication (Methylnaltrexone Nancy [Relistor]) 150 mg PO DAILY [facility] Oxycodone HCl (Roxicodone -) 15 mg PO Q4H PRN PRN Reason: PAIN LEVEL 6-10 Last Admin: 02/16/18 09:49 Dose: 15 mg Pantoprazole Sodium (Protonix -) 40 mg PO DAILY [facility] Last Admin: 02/15/18 10:53 Dose: 40 mg Ranolazine (Ranexa -) 500 mg PO BID [facility] Last Admin: 02/15/18 21:51 Dose: 500 mg - Objective Vital Signs: Vital Signs Temperature 97.7 F 02/16/18 05:29 Pulse Rate 77 02/16/18 05:29 Respiratory Rate 20 02/16/18 05:29 Blood Pressure 128/82 02/16/18 05:29 O2 Sat by Pulse Oximetry (%) 97 02/15/18 20:25 Constitutional: Yes: No Distress, Calm Neck: Yes: Supple Cardiovascular: Yes: Regular Rate and Rhythm Respiratory: Yes: Regular, CTA Bilaterally Gastrointestinal: Yes: Normal Bowel Sounds, Soft Edema: No Labs: CBC, BMP 02/16/18 05:30 02/16/18 05:30 INR, PTT INR 1.04 (0.83-1.09) 02/13/18 05:30 - ....Imaging EKG: Report Reviewed (Tele: NSR) Problem List - Problems (1) Progressive angina Code(s): I20.0 - UNSTABLE ANGINA (2) History of pulmonary embolism Code(s): Z86.711 - PERSONAL HISTORY OF PULMONARY EMBOLISM (3) H/O deep venous thrombosis Code(s): Z86.718 - PERSONAL HISTORY OF OTHER VENOUS THROMBOSIS AND EMBOLISM (5) Chronic anticoagulation Code(s): Z79.01 - FAMILY CONSUMER SCIENTIST (CURRENT) USE OF ANTICOAGULANTS (6) Hematochezia Code(s): K92.1 - MELENA (7) Family history of malignant neoplasm of colon in first degree relative diagnosed when younger than 60 years of age Code(s): Z80.0 - FAMILY HISTORY OF MALIGNANT NEOPLASM OF DIGESTIVE ORGANS (8) Family history of premature coronary artery disease Code(s): Z82.49 - FAMILY HX OF ISCHEM HEART DIS AND OTH DIS OF [facility] (9) Hypothyroidism Code(s): E03.9 - HYPOTHYROIDISM, UNSPECIFIED Qualifiers: Hypothyroidism type: unspecified Qualified Code(s): E03.9 - Hypothyroidism , unspecified (10) Hyperlipidemia Code(s): E78.5 - HYPERLIPIDEMIA, UNSPECIFIED Qualifiers: Hyperlipidemia type: pure hypercholesterolemia Qualified Code(s): E78.00 - Pure hypercholesterolemia, unspecified; E78.0 - Pure hypercholesterolemia Assessment/Plan 11/29/2017 Echo: Mild cLVH, normal LVEF 55-60%, normal diastolic fxn, mod LAE, normal RV size and fxn 11/30/2017 Stress echo: Anteroseptal ischemia 02/13/2018 Echo: Normal RV and LV size and fxn LVEF 55-60%, normal biatrial sizes, mildly dilated ao 4.0 cm 1. CAD with progressive angina and LAD ischemia via Nuclear MPI and stress echocardiography 2. History of DVT/recurrent PE currently on DOAC/Eliquis and s/p IVC filter 3. Diastolic dysfunction 4. Family history of premature CAD 5. Hematochezia with family h/o colon CA 6. Hypothyroidism 7. T11 compression fracture with need for spinal fusion 8. Pancytopenua PLAN: 1. Previous cardiology studies and medical records reviewed 2. Continue Ranexa 500 mg BID, Norvasc 5 mg QD, Eliquis 5 mg BID (currently held and on Lovenox), ASA 81 mg QD, Lipitor 80 mg QD, Imdur 60 mg QD, Toprol XL 100 mg BID and Lisinopril 10 mg QD, 3. Repeat colonoscopy is planned for today 4. Cardiac catheterization pending colonoscopy results
--- NOTE | 2018-02-16 13:53 | PN ---
Progress Note (short form) - Note Progress Note: Colonoscopy complete. Report left in procedural section of physical chart and to be scanned into [email or web address] Suspect previously described bleeding was from internal hemorrhoids Rec: MiraLAX 17g once daily Anusol HC supposirory 1 TN BID for 3 days Problem List - Problems (1) Hematochezia Code(s): K92.1 - MELENA
--- NOTE | 2018-02-16 14:19 | PN ---
Progress Note (short form) - Note Progress Note: HCV PCR +. Will need genotyping. Discussed finding with Mr. Quiroga. Explained that he will need continued evaluation for treatment. Advised that he have close contacts and family members screened, that he keep his razor and toothbrush separate. He should have hepatitis B surface antibody checked. If negative, will need hepatitis B vaccine. Problem List - Problems (1) Hematochezia Code(s): K92.1 - MELENA
[2018-02-16] MEDS ORDERED: ENOXAPARIN NA (PORCINE) 120 MG/0.8 ML DISP.SYRIN SQ ONE ×2 (14:30→19:15)
--- NOTE | 2018-02-16 14:33 | PN ---
Progress Note (short form) - Note Progress Note: Given findingd of mild splenomegaly on US, Chronic hepatitis C, thrombocytopenia and hypoalbuminemia, I discussed EGD with Mr. Mclaughlin to screen for esophageal / gastric varices. I felt that this was prudent as he will be heading towards needing both antiplatelet and anticoagulation. Discussed potential risks of the procedure like but not limited to bleeding, perforation requiring surgery to repair, infection, sedation medication effects all of which could be potentially life threatening. he has agreed to the procedure. NPO after midnight except meds OK to give lovenox tonight. Hold in AM Problem List - Problems (1) Hematochezia Code(s): K92.1 - MELENA
[2018-02-16] MEDS: ASPIRIN 81 MG CHEWABLE TABLETS PO SCH (16:52)
[2018-02-16] MEDS: LEVOTHYROXINE NA 50 MCG TABLET (FP) PO SCH (16:53)
[2018-02-16] MEDS: ATORVASTATIN CA 80 MG TABLET (FP) PO SCH (16:53)
[2018-02-16] MEDS: ISOSORBIDE MONONITRATE 60 MG TAB.SR.24H (FP) PO SCH (16:53)
[2018-02-16] MEDS: LISINOPRIL 10 MG TABLET (FP) PO SCH (16:54)
[2018-02-16] MEDS: amLODIPine BESYLATE 5 MG TABLET (FP) PO SCH (16:54)
[2018-02-16] MEDS: LIDOCAINE 5% TOPICAL PATCH TP SCH ×2 (16:54→21:34)
[2018-02-16] MEDS: PANTOPRAZOLE 40 MG TABLET (FP) PO SCH (16:54)
--- NOTE | 2018-02-16 17:25 | CONSULT ---
Consult Consult Specialty:: Hematology-Oncology Referred by:: Dr. Salazar Reason for Consultation:: Pancytopenia, recurrent DVT/PE - History of Present Illness Chief Complaint: chest pain History of Present Illness: 47 yr old man with hx of multiple DVT and PE since 2011, recently diagnosed Hepatitis C infection, presented with chest pain, awaiting PCI. Initial DVT in right leg post knee surgery suggestive of provoked DVT, completed 3 mo treatment with warfarin at that time. dx'd with multiple PE's since last year, underwent 1 thrombolectomy and thrombolysis for right PE, was then placed on warfarin and developed a PE on warfarin when INR was 2.8. warfarin changed to elquis at that time. Has been compliant with ac therapy. Underwent factor V leiden, protein s and c testing to determine cause of recurrent VTE at [facility] last year but pt recalls that all testing was negative Pmhx/Soc hx blood transfusion at age 15 at [facility] unsanctioned boxer [id number] tattoo 8 yrs ago with questionable sterility of needle From ages [age] used to inject anabolic steroids and testosterone which could cause increased risk of thrombus formation denies smoking, alcohol and illicit drug use Fmhx: brother with hx of AR s/p CABG at age 37, used to use anabolic steroids, Denies family hx of hematological, coag or thrombophilic d/o however extensive malignant history: sister with ovarian cancer, 2 1st degree cousins with brain cancers both dx'd < age of 30. paternal uncle with stomach cancer(hx of smoking), 1st degree cousin with lung cancer dx'd <age 20. father with colon cancer dx'd age 54 - History Source History Provided By: Patient Limitations to Obtaining History: No Limitations - Past Medical History Cardio/Vascular: Yes: Deep Vein Thrombosis - Past Surgical History Additional Surgical History: knee surgeries - Alcohol/Substance Use Hx Alcohol Use: No - Smoking History Smoking history: Never smoked Home Medications - Allergies Allergies/Adverse Reactions: Allergies Allergy/AdvReac Type Severity Reaction Status Date / Time Penicillins Allergy Verified 02/12/18 14:42 - Home Medications Home Medications: Ambulatory Orders Amlodipine Besylate 5 mg PO DAILY 02/12/18 Apixaban [Eliquis] 5 mg PO BID 02/12/18 Aspirin [ASA -] 81 mg PO DAILY 02/12/18 Atorvastatin Calcium 80 mg PO DAILY 02/12/18 Isosorbide Mononitrate [Isosorbide Mononitrate ER] 60 mg PO DAILY 02/12/18 Levothyroxine [Synthroid -] 50 mcg PO DAILY 02/12/18 Lidocaine 5% Patch [Lidoderm -] 1 patch TP BID 02/12/18 Lisinopril 10 mg PO DAILY 02/12/18 Methylnaltrexone [place] [Relistor] 150 mg PO DAILY 02/12/18 Metoprolol Tartrate 100 mg PO BID 02/12/18 Nitroglycerin Sublingual [Nitrostat -] 0.4 mg SL PRN PRN 02/12/18 Oxycodone HCl 15 mg PO QID PRN 02/12/18 Atorvastatin Ca [Lipitor] 40 mg PO HS 02/13/18 Lisinopril 20 mg PO DAILY 02/13/18 Family Disease History - Family Disease History Family Disease History: Heart Disease: Father (AR @ 54, colon cancer @ 54), Brother (CABG @ 39), CA: Father, Sister (ovarian cancer apprx age of dx 30's) Review of Systems - Review of Systems Constitutional: denies: Chills, Fever, Unintentional Wgt. Loss HENT: reports: No Symptoms Neck: reports: No Symptoms Cardiovascular: reports: Chest Pain, Shortness of Breath Respiratory: reports: No Symptoms Gastrointestinal: reports: No Symptoms Genitourinary: reports: No Symptoms Hematology/Lymphatic: reports: No Symptoms Physical Exam Vital Signs: Vital Signs Temperature 97.7 F 02/16/18 09:00 Pulse Rate 83 02/16/18 14:25 Respiratory Rate 16 02/16/18 14:25 Blood Pressure 115/76 02/16/18 14:25 O2 Sat by Pulse Oximetry (%) 97 02/16/18 14:25 Constitutional: Yes: No Distress, Calm Eyes: Yes: Conjunctiva Clear, EOM Intact, PERRL HENT: Yes: Atraumatic, Normocephalic. No: Pharyngeal Erythema, Thrush Neck: Yes: Supple, Trachea Midline Cardiovascular: Yes: Regular Rate and Rhythm, S1, S2. No: Murmur Respiratory: Yes: Regular, CTA Bilaterally Gastrointestinal: Yes: Normal Bowel Sounds, Soft Musculoskeletal: Yes: WNL Extremities: Yes: WNL Edema: No Peripheral Pulses WNL: Yes Integumentary: Yes: WNL Neurological: Yes: Alert, Oriented, Cran Nerves II-XII Intact ...Motor Strength: WNL Labs: CBC, BMP 02/16/18 05:30 02/16/18 05:30 Assessment/Plan 47 yr old man with recurrent VTE on eliquis. Problem List: recurrent VTE Chest pain awaiting PCI A/P Pt says he underwent complete coagulopathic work-up last year at [facility] and does not want repeat work-up. Please obtain records from [facility] for review continue AC leukopenia and thrombocytopenia likely attributable to liver disease pt has an extensive family hx of malignancy and recommend genetic counseling for evaluation. recommend colonscopy(which was completed this morning), prostate examination, may require more aggressive cancer screening measures including CT chest abdomen and pelvis to further investigate any occult malignancies. discussed with patient to follow-up as outpatient. can be referred to [facility] for genetic counseling Pt mentioned a lung nodule found on Chest CT completed at [facility] few months ago, he should be re-evaluated for monitoring of lung nodule. please obtain record if possible. his hx of steriod use may also be contributing to recurrent VTE, though his last use was several years ago so ruling out malignancy is of higher concern
--- NOTE | 2018-02-16 19:00 | PN ---
Teaching Attending Note Name of Resident: Vijay Dean Patient seen and examined with resident Dr. Dean 47 y/o patient with h/o unprovoked DVT 2011, s/p knee surgery. Also with h/o recurrent unprovoke PE, last episode earlier this year while on coumadin per patient Currently on eliquis 5 mg bid Had been on terminal manager trestosterone several yres. prior Also extensive fmaily h/o cancer Would consider CT c/a/p --f/u lung nodule, r/o occult malignancy given recurrent VTE Reports neg. thrombophilia w/u f/u colonoscopy results done today [employer] cancer screening genetic risk evaluation as out patient pancytopenia-- ? hep. C/ liver disease Ongoing cardiac w/u will follow
[2018-02-16] MEDS: PHENYLEPHRINE 0.25%/STARCH 1 EACH SUPP.RECT RC SCH (21:33)
[2018-02-16] MEDS ORDERED: ENOXAPARIN NA (PORCINE) 120 MG/0.8 ML DISP.SYRIN SQ SCH (22:00)
[2018-02-17] MEDS: oxyCODONE HCL 5 MG TABLET PO PRN ×5 (03:26→22:13)
[2018-02-17 07:29] LABS: BASO % 0.3 % (0-2.0); HEMATOCRIT 34.7 % (35.4-49); HEMOGLOBIN 11.9 GM/dL (11.7-16.9); LYMPH % 29.3 % (8-40); MCH 28.1 pg (25.7-33.7); MCHC 34.2 g/dl (32.0-35.9); MEAN CELL VOLUME 82.3 fl (80-96); MEAN PLT VOLUME 9.3 fl (7.5-11.1); MONO % 11.1 % (3.8-10.2); NEUT % 55.3 % (42.8-82.8); PLATELET COUNT 84 K/MM3 (134-434); RBC 4.21 M/mm3 (4.00-5.60); RDW 15.8 % (11.9-15.9)
[2018-02-17 08:00] LABS: ALBUMIN 3.2 g/dl (3.4-5.0); ALK PHOS 50 U/L (45-117); ANION GAP 7 MMOL/L (8-16); BILIRUBIN,TOTAL 0.3 mg/dL (0.2-1); BLOOD UREA NITROGEN 12 mg/dL (7-18); CALCIUM 8.3 mg/dL (8.5-10.1); CHLORIDE 105 mmol/L (98-107); CO2 28 mmol/L (21-32); GLUCOSE,RANDOM 112 mg/dL (74-106); MAGNESIUM 2.3 mg/dL (1.8-2.4); PHOSPHOROUS 3.5 mg/dL (2.5-4.9); POTASSIUM 3.7 mmol/L (3.5-5.1); SGOT/AST 83 U/L (15-37); SGPT/ALT 103 U/L (13-61); SODIUM 140 mmol/L (136-145); TOT PROT 6.7 g/dl (6.4-8.2)
--- NOTE | 2018-02-17 12:15 | PN ---
Progress Note, Physician History of Present Illness: No further episodes of exertional angina, colonoscopy showed internal hemorrhoids, EGD did not show varices or PUD, may proceed with cath on Tuesday given holiday and clinical stability, patient agrees with plan. - Current Medication List Current Medications: Active Medications Amlodipine Besylate (Norvasc -) 5 mg PO DAILY [facility] Last Admin: 02/16/18 16:54 Dose: 5 mg Aspirin (Asa -) 81 mg PO DAILY [facility] Last Admin: 02/16/18 16:52 Dose: 81 mg Atorvastatin Calcium (Lipitor -) 80 mg PO DAILY [facility] Last Admin: 02/16/18 16:53 Dose: 80 mg Isosorbide Mononitrate (Imdur -) 60 mg PO DAILY [facility] Last Admin: 02/16/18 16:53 Dose: 60 mg Levothyroxine Sodium (Synthroid -) 50 mcg PO DAILY [facility] Last Admin: 02/16/18 16:53 Dose: 50 mcg Lidocaine (Lidoderm Patch -) 1 patch TP BID [facility] Last Admin: 02/16/18 21:34 Dose: 1 patch Lisinopril (Prinivil) 10 mg PO DAILY [facility] Last Admin: 02/16/18 16:54 Dose: 10 mg Metoprolol Succinate (Toprol Xl -) 100 mg PO BID [facility] Last Admin: 02/16/18 21:33 Dose: 100 mg Nitroglycerin (Nitrostat -) 0.4 mg SL PRN PRN PRN Reason: FOR CHEST PAIN Non-Formulary Medication (Methylnaltrexone [place] [Relistor]) 150 mg PO DAILY [facility] Oxycodone HCl (Roxicodone -) 15 mg PO Q4H PRN PRN Reason: PAIN LEVEL 6-10 Last Admin: 02/17/18 07:59 Dose: 15 mg Pantoprazole Sodium (Protonix -) 40 mg PO DAILY [facility] Last Admin: 02/16/18 16:54 Dose: 40 mg Polyethylene Glycol (Miralax (For Daily Use) -) 17 gm PO DAILY [facility] Ranolazine (Ranexa -) 500 mg PO BID [facility] Last Admin: 02/16/18 21:33 Dose: 500 mg Starch (Anusol Suppository -) 1 each RC BID [facility] Stop: 02/19/18 21:59 Last Admin: 02/16/18 21:33 Dose: 1 each - Objective Vital Signs: Vital Signs Temperature 98 F 02/17/18 09:00 Pulse Rate 82 02/17/18 09:00 Respiratory Rate 20 02/17/18 09:00 Blood Pressure 136/72 02/17/18 09:00 O2 Sat by Pulse Oximetry (%) 98 02/16/18 20:39 Constitutional: Yes: No Distress, Calm Neck: Yes: Supple Cardiovascular: Yes: Regular Rate and Rhythm Respiratory: Yes: Regular, CTA Bilaterally Gastrointestinal: Yes: Normal Bowel Sounds, Soft Edema: No Labs: CBC, BMP 02/17/18 05:30 02/17/18 05:30 INR, PTT INR 1.04 (0.83-1.09) 02/13/18 05:30 Problem List - Problems (1) Progressive angina Code(s): I20.0 - UNSTABLE ANGINA (2) History of pulmonary embolism Code(s): Z86.711 - PERSONAL HISTORY OF PULMONARY EMBOLISM (3) H/O deep venous thrombosis Code(s): Z86.718 - PERSONAL HISTORY OF OTHER VENOUS THROMBOSIS AND EMBOLISM (5) Chronic anticoagulation Code(s): Z79.01 - SNF (CURRENT) USE OF ANTICOAGULANTS (6) Hematochezia Code(s): K92.1 - MELENA (7) Family history of malignant neoplasm of colon in first degree relative diagnosed when younger than 60 years of age Code(s): Z80.0 - FAMILY HISTORY OF MALIGNANT NEOPLASM OF DIGESTIVE ORGANS (8) Family history of premature coronary artery disease Code(s): Z82.49 - FAMILY HX OF ISCHEM HEART DIS AND OTH DIS OF [facility] (9) Hypothyroidism Code(s): E03.9 - HYPOTHYROIDISM, UNSPECIFIED Qualifiers: Hypothyroidism type: unspecified Qualified Code(s): E03.9 - Hypothyroidism , unspecified (10) Hyperlipidemia Code(s): E78.5 - HYPERLIPIDEMIA, UNSPECIFIED Qualifiers: Hyperlipidemia type: pure hypercholesterolemia Qualified Code(s): E78.00 - Pure hypercholesterolemia, unspecified; E78.0 - Pure hypercholesterolemia (11) Internal hemorrhoids Code(s): K64.8 - OTHER HEMORRHOIDS Assessment/Plan 11/29/2017 Echo: Mild cLVH, normal LVEF 55-60%, normal diastolic fxn, mod LAE, normal RV size and fxn 11/30/2017 Stress echo: Anteroseptal ischemia 02/13/2018 Echo: Normal RV and LV size and fxn LVEF 55-60%, normal biatrial sizes, mildly dilated ao 4.0 cm 1. CAD with progressive angina and LAD ischemia via Nuclear MPI and stress echocardiography 2. History of DVT/recurrent PE currently on DOAC/Eliquis and s/p IVC filter 3. Diastolic dysfunction 4. Family history of premature CAD 5. Hematochezia with family h/o colon CA referable to internal hemorrhoids 6. Hypothyroidism 7. T11 compression fracture with need for spinal fusion 8. Pancytopenua PLAN: 1. Previous cardiology studies and medical records reviewed, GI evaluation appreciated 2. Continue Ranexa 500 mg BID, Norvasc 5 mg QD, Eliquis 5 mg BID is currently held and resume per GI recs, ASA 81 mg QD, Lipitor 80 mg QD, Imdur 60 mg QD, Toprol XL 100 mg BID and Lisinopril 10 mg QD, 3. Cardiac catheterization tentatively Wed given long holiday weekend. hold Eliquis 2 days prior to procedure.
--- NOTE | 2018-02-17 12:19 | PN ---
Progress Note (short form) - Note Progress Note: EGD complete. Report placed in procedural section of physical chart and to be scanned into [facility] Problem List - Problems (1) Hematochezia Code(s): K92.1 - MELENA
--- NOTE | 2018-02-17 13:20 | PN ---
Physical Exam: SUBJECTIVE: Patient seen and examined this AM. 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 He still is having intermittent chest pain. OBJECTIVE: Vital Signs Period Temp Pulse Resp BP Sys/[place]lin Pulse Ox Last 24 Hr 97.7 F-98.8 F 72-96 16-20 102-143/53-81 93-99 GENERAL: A&O, no acute distress HEAD: Normocephalic, atraumatic. EYES: PERRL, no scleral icterus EARS, NOSE, THROAT: oropharynx clear without exudates. Moist mucous membranes. NECK: supple without lymphadenopathy LUNGS: CTA b/l, no crackles or wheezes HEART: Regular rate and rhythm, normal S1 and S2 without murmur ABDOMEN: Soft, nontender to palpation, normoactive bowel sounds EXTREMITIES: 2+ pulses, warm, well-perfused. No peripheral edema. NEUROLOGICAL: Cranial nerves II-XII grossly intact. Normal speech. Laboratory Results - last 24 hr 02/17/18 02/17/18 05:30 05:30 WBC 2.0 L RBC 4.21 Hgb 11.9 Hct 34.7 L MCV 82.3 MCH 28.1 MCHC 34.2 RDW 15.8 Plt Count 84 L D MPV 9.3 Absolute Neuts (auto) 1.1 L Neutrophils % 55.3 Lymphocytes % 29.3 D Monocytes % 11.1 H Eosinophils % 4.0 Basophils % 0.3 Nucleated RBC % 0 Sodium 140 Potassium 3.7 Chloride 105 Carbon Dioxide 28 Anion Gap 7 L BUN 12 Creatinine 1.0 Creat Clearance w eGFR > 60 Random Glucose 112 H Calcium 8.3 L Phosphorus 3.5 Magnesium 2.3 Total Bilirubin 0.3 AST 83 H ALT 103 H Alkaline Phosphatase 50 Total Protein 6.7 Albumin 3.2 L Active Medications Generic Name Dose Route Start Last Admin Trade Name Freq PRN Reason Stop Dose Admin Amlodipine Besylate 5 mg 02/13/18 10:00 02/16/18 16:54 Norvasc - PO 5 mg DAILY [facility] Administration Aspirin 81 mg 02/13/18 10:00 02/16/18 16:52 Asa - PO 81 mg DAILY [facility] Administration Atorvastatin Calcium 80 mg 02/13/18 10:00 02/16/18 16:53 Lipitor - PO 80 mg DAILY [facility] Administration Isosorbide Mononitrate 60 mg 02/13/18 10:00 02/16/18 16:53 Imdur - PO 60 mg DAILY [facility] Administration Levothyroxine Sodium 50 mcg 02/13/18 10:00 02/16/18 16:53 Synthroid - PO 50 mcg DAILY [facility] Administration Lidocaine 1 patch 02/12/18 22:00 02/16/18 21:34 Lidoderm Patch - TP 1 patch BID [facility] Administration Lisinopril 10 mg 02/13/18 10:00 02/16/18 16:54 Prinivil PO 10 mg DAILY [facility] Administration Metoprolol Succinate 100 mg 02/12/18 22:00 02/16/18 21:33 Toprol Xl - PO 100 mg BID [facility] Administration Nitroglycerin 0.4 mg 02/12/18 18:04 Nitrostat - SL PRN PRN FOR CHEST PAIN Non-Formulary Medication 150 mg 02/13/18 10:00 Methylnaltrexone [place] [Relistor] PO DAILY [facility] Oxycodone HCl 15 mg 02/16/18 04:56 02/17/18 07:59 Roxicodone - PO 15 mg Q4H PRN Administration PAIN LEVEL 6-10 Pantoprazole Sodium 40 mg 02/12/18 19:30 02/16/18 16:54 Protonix - PO 40 mg DAILY [facility] Administration Polyethylene Glycol 17 gm 02/17/18 10:00 Miralax (For Daily Use) - PO DAILY [facility] Ranolazine 500 mg 02/13/18 11:45 02/16/18 21:33 Ranexa - PO 500 mg BID [facility] Administration Starch 1 each 02/16/18 22:00 02/16/18 21:33 Anusol Suppository - RC 02/19/18 21:59 1 each BID [facility] Administration ASSESSMENT/PLAN: 47 y/o gentleman with a significant past medical history of HTN, HLD, positive stress test in [place] 6 months ago, positive stress test [facility] November 2017, hypothyroidism, DVT (2011 s/p R Knee surgery), Pulmonary embolism (2014), Pulmonary embolism Mar 2017 (started on Coumadin), another PE Oct 2017 ( Coumadin switched to eliquis), IVC filter placement admitted with complaint of left sided chest pain. CAD with Unstable Angina -Troponins negative -[address]/T wave abnormalities -Pt has had 2 positive stress tests in the last 6 months and has been told he will need PCI -Cardiology consult appreciated, will likely be transferred Tuesday following and for PCI -Echo noted with normal EF and no wall motion abnormalities -Ranexa 500 mg BID Hematochezia -Pt reports intermittent hematochezia for about one month -Family hx of Colon Ca in father at 54 -GI consultation appreciated -Colonoscopy with small diverticula but no other concerning findings -EGD without signs of varices or gastritis -Trend H/H, currently stable Recurrent DVT/PEs with IVC Filter -Pt reports negative hypercoagulable workup in the past, will attempt to get records for Heme -On Eliquis 5 mg PO BID, though currently held for Colonoscopy -Lovenox 120 mg SQ BID -Heme/onc consulted -Recommend standard cancer screening as pt has not had all adequate screening - HTN -Lisinopril 10 mg PO Daily -Toprol XL 100 mg PO BID -Imdur 60 mg PO Daily -Norvasc 5 mg PO Daily Hypothyroidism -Synthroid 50 mcg PO AM HLD -Lipitor 80 mg PO HS Transaminitis -Pt denies alcohol use -Hep C Ab positive, RNA PCR positive -New diagnosis of HCV -EGD did not reveal any varices or gastritis Pancytopenia -unknown etiology, could be secondary to malignant process -Heme/Onc consulted as above -Splenic US with mildly enlarged spleen DVT Prophylaxis -Eliquis was held for GI workup -Lovenox 120 mg SQ BID, can likely resume eliquis pending cardiology recommendation FEN -Fluids: none -Electrolytes: No electrolyte abnormalities, BMP in AM -Nutrition: Na controlled diet Disposition Telemetry Visit type - Emergency Visit Emergency Visit: Yes ED Registration Date: 02/13/18 Care time: The patient presented to the Emergency Department on the above date and was hospitalized for further evaluation of their emergent condition. - New Patient This patient is new to me today: No - Critical Care Critical Care patient: No
[2018-02-17] MEDS: RANOLAZINE E.R. 500 MG TABLET (FP) PO SCH ×2 (13:31→22:14)
[2018-02-17] MEDS: LEVOTHYROXINE NA 50 MCG TABLET (FP) PO SCH (13:31)
[2018-02-17] MEDS: LISINOPRIL 10 MG TABLET (FP) PO SCH (13:32)
[2018-02-17] MEDS: ASPIRIN 81 MG CHEWABLE TABLETS PO SCH (13:32)
[2018-02-17] MEDS: PANTOPRAZOLE 40 MG TABLET (FP) PO SCH (13:32)
[2018-02-17] MEDS: amLODIPine BESYLATE 5 MG TABLET (FP) PO SCH (13:32)
[2018-02-17] MEDS: LIDOCAINE 5% TOPICAL PATCH TP SCH ×2 (13:33→22:15)
[2018-02-17] MEDS: ISOSORBIDE MONONITRATE 60 MG TAB.SR.24H (FP) PO SCH (13:33)
[2018-02-17] MEDS: ATORVASTATIN CA 80 MG TABLET (FP) PO SCH (13:33)
[2018-02-17] MEDS ORDERED: ENOXAPARIN NA (PORCINE) 120 MG/0.8 ML DISP.SYRIN SQ ONE (15:30)
[2018-02-17] MEDS: POLYETHYLENE GLYCOL 3350 119 GM BTL PO SCH (16:11)
[2018-02-17] MEDS: PHENYLEPHRINE 0.25%/STARCH 1 EACH SUPP.RECT RC SCH ×2 (16:12→22:26)
--- NOTE | 2018-02-17 17:16 | CONS ---
DATE OF CONSULTATION: 02/17/2018 HISTORY OF PRESENT ILLNESS: Patient is a 47-year-old man with an extensive past medical history which includes DVT and multiple pulmonary embolism as well as hepatitis C, chronic back pain, who was admitted with GI bleed. Patient has been undergoing workup including colonoscopy and is pending endoscopy. Patient may have had bleeding due to internal hemorrhoids. He has been experiencing unstable angina with chest pain and will be in need of a cardiac catheterization possibly at [facility] once stabilized and cleared by Gastroenterology. I was asked to see the patient in regards to mobility as well as chronic back pain. Patient states that he injured his back a number of years ago and suffered multiple injuries including a T11 compression fracture as well as L4-5 disk protrusion which has failed conservative measures. He states that once he has been cleared by Cardiology and is stable he may undergo further surgery for his lower back although he could not specify. He is on chronic pain medication but is able to stand and ambulate. Occasionally he gets radiating symptoms down the left lower extremity into the lateral calf and foot with numbness but no significant weakness. Patient again is seen in rehabilitation evaluation but is up and mobile and able to ambulate on the unit slowly although he gets short of breath. REVIEW OF PAST MEDICAL AND SURGICAL HISTORY: As above. Patient has undergone workup for possible coagulopathy which apparently was not conclusive. SOCIAL HISTORY: Independent. Lives in a 1-story house with about 8 steps to enter. Premorbidly he was independent, again limited more by cardiac symptoms and shortness of breath than his lower back condition at this time. Current function as above. FURTHER TESTING: Patient had upper endoscopy which was normal. He had blood work which has included multiple CBCs showing thrombocytopenia and leukopenia. His last on February 17 his WBCs were low at 2.0 and his platelet count was 84,000. Last chemistry on February 17 was fairly normal. He had a low calcium of 8.3, but this corrects for low albumin of 3.2. REVIEW OF SYSTEMS: He denies any headache, any lightheadedness, dizziness, any blurry vision, double vision. No current chest pain or shortness of breath, but he does get dyspneic with exertion. No abdominal pain. Again he had some bleeding per rectum. No current numbness, tingling, but the pain from his back can shoot down the left lower extremity and cause some numbness. No isolated weakness in the lower extremities. No significant neck pain or upper extremity discomfort. PHYSICAL EXAMINATION:General: Patient is seen lying supine in bed. He is in no acute distress. He is awake, alert and conversive. HEENT: He is normocephalic and atraumatic. His extraocular muscles appear intact. Neck: Supple. Extremities: Without any pitting edema or calf tenderness. Skin: Without any rash or breakdown. Neuromuscular: He is awake, alert, fully oriented x3. Seems to have good insight into his medical condition. His cranial nerves II-XII grossly intact. He has good motor power throughout the upper and lower extremities. Normal sensation to light touch and pinprick. No gross arthritic changes in the upper or lower extremities. He has diffuse tenderness in his lower back with limited flexion and extension due to discomfort. Negative straight-leg raise test. Symmetric reflex. OVERALL IMPRESSION: 1. Deficits in mobility and activities of daily living more due to cardiac symptoms than his lower back at this time. 2. Unstable angina. 3. Gastrointestinal bleed, undergoing workup, possibly due to internal hemorrhoids. 4. Chronic back pain with a history of a T11 compression fracture and L4-5 disk protrusion or herniation. 5. Thrombocytopenia. 6. Leukopenia. 7. Possible coagulopathy, history of deep vein thrombosis and multiple pulmonary embolism. 8. Hypoalbuminemia. 9. Hepatitis C. PLAN/SUGGESTION: 1. No skilled physical therapy needs at this time. 2. I have instructed him to continue ambulation; however, at a very slow pace and patient should sit if he gets any shortness of breath. 3. Out of bed to chair. 4. Anticoagulated on Eliquis. 5. Skin precaution. 6. Bowel regimen per Gastroenterology. 7. Disposition: To another facility to undergo cardiac catheterization. Thank you for this referral. REMIGIO JIMENEZ M.D. AIDE/[id number]
--- NOTE | 2018-02-17 18:30 | PN ---
Teaching Attending Note Name of Resident: Holland Godoy ATTENDING PHYSICIAN STATEMENT I saw and evaluated the patient. I reviewed the resident's note and discussed the case with the resident. I agree with the resident's findings and plan as documented with exceptions below. SUBJECTIVE: Patient seen and examined. no further chest pain, no dark or bloody stools. OBJECTIVE: Vital Signs Period Temp Pulse Resp BP Sys/[place]lin Pulse Ox Last 24 Hr 97.7 F-98 F 72-87 16-20 102-143/56-81 93-99 Intake & Output 02/14/18 02/15/18 02/16/18 02/17/18 23:59 23:59 23:59 23:59 Intake Total 100 1100 800 190 Balance 100 1100 800 190 General: sitting in stretcher in endoscopy suite, no acute distress Chest: CTAB, no rales or wheezing Abdomen;Soft, NT, nD Extremities: no edema Active Medications Amlodipine Besylate (Norvasc -) 5 mg PO DAILY [facility] Last Admin: 02/17/18 13:32 Dose: 5 mg Aspirin (Asa -) 81 mg PO DAILY [facility] Last Admin: 02/17/18 13:32 Dose: 81 mg Atorvastatin Calcium (Lipitor -) 80 mg PO DAILY [facility] Last Admin: 02/17/18 13:33 Dose: 80 mg Enoxaparin Sodium (Lovenox -) 120 mg SQ BID [facility] Isosorbide Mononitrate (Imdur -) 60 mg PO DAILY [facility] Last Admin: 02/17/18 13:33 Dose: 60 mg Levothyroxine Sodium (Synthroid -) 50 mcg PO DAILY [facility] Last Admin: 02/17/18 13:31 Dose: 50 mcg Lidocaine (Lidoderm Patch -) 1 patch TP BID [facility] Last Admin: 02/17/18 13:33 Dose: 1 patch Lisinopril (Prinivil) 10 mg PO DAILY [facility] Last Admin: 02/17/18 13:32 Dose: 10 mg Metoprolol Succinate (Toprol Xl -) 100 mg PO BID [facility] Last Admin: 02/17/18 13:34 Dose: 100 mg Nitroglycerin (Nitrostat -) 0.4 mg SL PRN PRN PRN Reason: FOR CHEST PAIN Non-Formulary Medication (Methylnaltrexone [place] [Relistor]) 150 mg PO DAILY [facility] Oxycodone HCl (Roxicodone -) 15 mg PO Q4H PRN PRN Reason: PAIN LEVEL 6-10 Last Admin: 02/17/18 17:40 Dose: 15 mg Pantoprazole Sodium (Protonix -) 40 mg PO DAILY [facility] Last Admin: 02/17/18 13:32 Dose: 40 mg Polyethylene Glycol (Miralax (For Daily Use) -) 17 gm PO DAILY [facility] Last Admin: 02/17/18 16:11 Dose: Not Given Ranolazine (Ranexa -) 500 mg PO BID [facility] Last Admin: 02/17/18 13:31 Dose: 500 mg Starch (Anusol Suppository -) 1 each RC BID [facility] Stop: 02/19/18 21:59 Last Admin: 02/17/18 16:12 Dose: Not Given Laboratory Results - last 24 hr 02/17/18 02/17/18 05:30 05:30 WBC 2.0 L RBC 4.21 Hgb 11.9 Hct 34.7 L MCV 82.3 MCH 28.1 MCHC 34.2 RDW 15.8 Plt Count 84 L D MPV 9.3 Absolute Neuts (auto) 1.1 L Neutrophils % 55.3 Lymphocytes % 29.3 D Monocytes % 11.1 H Eosinophils % 4.0 Basophils % 0.3 Nucleated RBC % 0 Sodium 140 Potassium 3.7 Chloride 105 Carbon Dioxide 28 Anion Gap 7 L BUN 12 Creatinine 1.0 Creat Clearance w eGFR > 60 Random Glucose 112 H Calcium 8.3 L Phosphorus 3.5 Magnesium 2.3 Total Bilirubin 0.3 AST 83 H ALT 103 H Alkaline Phosphatase 50 Total Protein 6.7 Albumin 3.2 L ASSESSMENT AND PLAN: 47 year old male with Hx DVT/recurrent PEs (2014, 2017 x 2, last 11/15 - at which time he was switched from Coumadin to Eliquis), CAD (s/p 2 positive stress tests - 1 NM stress 08/09 ago in [place] and another ECG/exercise Stress 12/15 at [facility]), never proceeded to Cath despite the recommendation by Cardiology at [facility] to do so, worsening exertional chest pain, now with almost daily chest discomfort, sometimes occurring at rest, relieved by nitroglycerin. He is currently admitted after 2 episodes of chest pain 02/12 (one after climbing 3 flights of stairs and the other at rest, both relieved within minutes by NTG). He had associated diaphoresis. Denies palpitations, SOB, Nausea , vomiting. Currently pain-free. He also complains of 1 month history of Hematochezia without abdominal discomfort, nausea, or vomiting. Positive FH for both Colon Ca and CAD- Father had NM and Colon Ca at age 54, Brother underwent CABG at age 39. Other brother also has Colon Ca. -Unstable Angina sec to underlying CAD - has rest episodes of CP with 2 prior positive stress tests in the past 6 months. -Hematochezia x 1 month (FH of colon Ca) s/p EGD/colonoscopy. -h/o DVT/multiple PEs on Eliquis/s/p IVC filter -Pancytopenia -Elevated transaminases -New diagnosis Hepatitis C -HTN -HLD -Hypothyroidism Plan: Cardiology input noted, ranexa added. 2D echo results reviewed. Continue ASA/beta andrea/ACEi/statin. Needs cardiac cath after GI optimization for hematochezia. GI input noted. s/p EGD/colonoscpy with internal haemorrhoids otherwise no bleed or concerns. Follow up pathology. Discussed with cardiology/GI, resume AC. Lovenox BID for now as plan for cath next week. Discussed with Dr. Degroot, plan for transfer for cardiac cath next week. Patient agreable. Trend LFTs, patient informed of Hepatitis C diagnosis, GI follow up. HIV screen neg comprehensive Abdo US with doppler noted. Hematology input noted. Continue Norvasc, Isosorbide, Lisinopril, Metoprolol, statin. Synthroid. GIPPX PPI DVTPPX full dose lovenox Dispo plan for transfer for cardiac cath next week . Plan discussed with patient in detail, all questions answered. Care co-ordinated with Dr. Degroot and Dr. Ferraro.
[2018-02-17] MEDS: ENOXAPARIN NA (PORCINE) 120 MG/0.8 ML DISP.SYRIN SQ SCH (22:14)
[2018-02-18] MEDS: oxyCODONE HCL 5 MG TABLET PO PRN ×5 (03:07→21:51)
--- NOTE | 2018-02-18 08:56 | PN ---
Physical Exam: SUBJECTIVE: Patient seen and examined this AM. He states the night was okay but is consistently having the similar chest pain mostly with exertion. No acute events overnight. OBJECTIVE: Vital Signs Period Temp Pulse Resp BP Sys/Franklin Pulse Ox Last 24 Hr 97.7 F-98.3 F 72-83 16-20 102-136/56-76 93-99 GENERAL: A&O, no acute distress HEAD: Normocephalic, atraumatic. EYES: PERRL, no scleral icterus EARS, NOSE, THROAT: oropharynx clear without exudates. Moist mucous membranes. NECK: supple without lymphadenopathy LUNGS: CTA b/l, no crackles or wheezes HEART: Regular rate and rhythm, normal S1 and S2 without murmur ABDOMEN: Soft, nontender to palpation, normoactive bowel sounds EXTREMITIES: 2+ pulses, warm, well-perfused. No peripheral edema. NEUROLOGICAL: Cranial nerves II-XII grossly intact. Normal speech. Active Medications Generic Name Dose Route Start Last Admin Trade Name Freq PRN Reason Stop Dose Admin Amlodipine Besylate 5 mg 02/13/18 10:00 02/17/18 13:32 Norvasc - PO 5 mg DAILY JESSICA Administration Aspirin 81 mg 02/13/18 10:00 02/17/18 13:32 Asa - PO 81 mg DAILY JESSICA Administration Atorvastatin Calcium 80 mg 02/13/18 10:00 02/17/18 13:33 Lipitor - PO 80 mg DAILY JESSICA Administration Enoxaparin Sodium 120 mg 02/17/18 22:00 02/17/18 22:14 Lovenox - SQ 120 mg BID JESSCIA Administration Isosorbide Mononitrate 60 mg 02/13/18 10:00 02/17/18 13:33 Imdur - PO 60 mg DAILY JESSICA Administration Levothyroxine Sodium 50 mcg 02/13/18 10:00 02/17/18 13:31 Synthroid - PO 50 mcg DAILY JESSICA Administration Lidocaine 1 patch 02/12/18 22:00 02/17/18 22:15 Lidoderm Patch - TP Not Given BID JESSICA Lisinopril 10 mg 02/13/18 10:00 02/17/18 13:32 Prinivil PO 10 mg DAILY JESSICA Administration Metoprolol Succinate 100 mg 02/12/18 22:00 02/17/18 22:14 Toprol Xl - PO 100 mg BID JESSICA Administration Nitroglycerin 0.4 mg 02/12/18 18:04 Nitrostat - SL PRN PRN FOR CHEST PAIN Oxycodone HCl 15 mg 02/16/18 04:56 02/18/18 03:07 Roxicodone - PO 15 mg Q4H PRN Administration PAIN LEVEL 6-10 Pantoprazole Sodium 40 mg 02/12/18 19:30 02/17/18 13:32 Protonix - PO 40 mg DAILY JESSICA Administration Polyethylene Glycol 17 gm 02/17/18 10:00 02/17/18 16:11 Miralax (For Daily Use) - PO Not Given DAILY JESSICA Ranolazine 500 mg 02/13/18 11:45 02/17/18 22:14 Ranexa - PO 500 mg BID JESSICA Administration Starch 1 each 02/16/18 22:00 02/17/18 22:26 Anusol Suppository - RC 02/19/18 21:59 Not Given BID JESSICA ASSESSMENT/PLAN: 47 y/o gentleman with a significant past medical history of HTN, HLD, positive stress test in [place] 6 months ago, positive stress test [facility] November 2017, hypothyroidism, DVT (2011 s/p R Knee surgery), Pulmonary embolism (2014), Pulmonary embolism Mar 2017 (started on Coumadin), another PE Oct 2017 ( Coumadin switched to eliquis), IVC filter placement admitted with complaint of left sided chest pain. CAD with Unstable Angina -Troponins negative -[address]/T wave abnormalities -Pt has had 2 positive stress tests in the last 6 months and has been told he will need PCI -Cardiology consult appreciated, will likely be transferred Tuesday following and for PCI -Echo noted with normal EF and no wall motion abnormalities -Ranexa 500 mg BID Hematochezia -Pt reports intermittent hematochezia for about one month -Family hx of Colon Ca in father at 54 -GI consultation appreciated -Colonoscopy with small diverticula but no other concerning findings -EGD without signs of varices or gastritis -Trend H/H, currently stable Recurrent DVT/PEs with IVC Filter -Pt reports negative hypercoagulable workup in the past, Pt says will fax in his old records today -On Eliquis 5 mg PO BID, though currently held for Colonoscopy -Lovenox 120 mg SQ BID -Heme/onc consulted -Recommend standard cancer screening as pt has not had all adequate screening HTN -Lisinopril 10 mg PO Daily -Toprol XL 100 mg PO BID -Imdur 60 mg PO Daily -Norvasc 5 mg PO Daily Hypothyroidism -Synthroid 50 mcg PO AM HLD -Lipitor 80 mg PO HS Transaminitis -Pt denies alcohol use -Hep C Ab positive, RNA PCR positive -New diagnosis of HCV -EGD did not reveal any varices or gastritis Pancytopenia -unknown etiology, could be secondary to malignant process -Heme/Onc consulted as above -Splenic US with mildly enlarged spleen DVT Prophylaxis -Eliquis was held for GI workup -Lovenox 120 mg SQ BID, can likely resume eliquis pending cardiology recommendation FEN -Fluids: none -Electrolytes: No electrolyte abnormalities -Nutrition: Na controlled diet Disposition Telemetry Visit type - Emergency Visit Emergency Visit: Yes ED Registration Date: 02/13/18 Care time: The patient presented to the Emergency Department on the above date and was hospitalized for further evaluation of their emergent condition. - New Patient This patient is new to me today: No - Critical Care Critical Care patient: No
[2018-02-18] MEDS: PANTOPRAZOLE 40 MG TABLET (FP) PO SCH (11:29)
[2018-02-18] MEDS: LIDOCAINE 5% TOPICAL PATCH TP SCH ×2 (11:29→21:53)
[2018-02-18] MEDS: LEVOTHYROXINE NA 50 MCG TABLET (FP) PO SCH (11:30)
[2018-02-18] MEDS: ASPIRIN 81 MG CHEWABLE TABLETS PO SCH (11:30)
[2018-02-18] MEDS: RANOLAZINE E.R. 500 MG TABLET (FP) PO SCH ×2 (11:30→21:52)
[2018-02-18] MEDS: LISINOPRIL 10 MG TABLET (FP) PO SCH (11:30)
[2018-02-18] MEDS: amLODIPine BESYLATE 5 MG TABLET (FP) PO SCH (11:30)
[2018-02-18] MEDS: ATORVASTATIN CA 80 MG TABLET (FP) PO SCH (11:30)
[2018-02-18] MEDS: ISOSORBIDE MONONITRATE 60 MG TAB.SR.24H (FP) PO SCH (11:30)
[2018-02-18] MEDS: ENOXAPARIN NA (PORCINE) 120 MG/0.8 ML DISP.SYRIN SQ SCH ×2 (11:30→21:52)
[2018-02-18] MEDS: PHENYLEPHRINE 0.25%/STARCH 1 EACH SUPP.RECT RC SCH ×2 (11:31→21:53)
[2018-02-18] MEDS: POLYETHYLENE GLYCOL 3350 119 GM BTL PO SCH (11:31)
--- NOTE | 2018-02-18 14:03 | PN ---
Teaching Attending Note Name of Resident: Holland Godoy ATTENDING PHYSICIAN STATEMENT I saw and evaluated the patient. I reviewed the resident's note and discussed the case with the resident. I agree with the resident's findings and plan as documented with exceptions below. SUBJECTIVE: Patient seen and examined. no complaints. No further chest pain or dark or bloody stools. OBJECTIVE: Vital Signs Period Temp Pulse Resp BP Sys/Franklin Pulse Ox Last 24 Hr 97.8 F-98.3 F 78-83 18-20 113-142/61-80 98 Intake & Output 02/15/18 02/16/18 02/17/18 02/18/18 23:59 23:59 23:59 23:59 Intake Total 1100 800 200 Balance 1100 800 200 General: sitting in bed in no acute distress Chest: CTAB, no rales or wheezing Abdomen:soft, NT, ND Extremities: no edema Active Medications Amlodipine Besylate (Norvasc -) 5 mg PO DAILY [facility] Last Admin: 02/18/18 11:30 Dose: 5 mg Aspirin (Asa -) 81 mg PO DAILY [facility] Last Admin: 02/18/18 11:30 Dose: 81 mg Atorvastatin Calcium (Lipitor -) 80 mg PO DAILY [facility] Last Admin: 02/18/18 11:30 Dose: 80 mg Enoxaparin Sodium (Lovenox -) 120 mg SQ BID [facility] Last Admin: 02/18/18 11:30 Dose: 120 mg Isosorbide Mononitrate (Imdur -) 60 mg PO DAILY [facility] Last Admin: 02/18/18 11:30 Dose: 60 mg Levothyroxine Sodium (Synthroid -) 50 mcg PO DAILY [facility] Last Admin: 02/18/18 11:30 Dose: 50 mcg Lidocaine (Lidoderm Patch -) 1 patch TP BID [facility] Last Admin: 02/18/18 11:29 Dose: 1 patch Lisinopril (Prinivil) 10 mg PO DAILY [facility] Last Admin: 02/18/18 11:30 Dose: 10 mg Metoprolol Succinate (Toprol Xl -) 100 mg PO BID [facility] Last Admin: 02/18/18 11:30 Dose: 100 mg Nitroglycerin (Nitrostat -) 0.4 mg SL PRN PRN PRN Reason: FOR CHEST PAIN Oxycodone HCl (Roxicodone -) 15 mg PO Q4H PRN PRN Reason: PAIN LEVEL 6-10 Last Admin: 02/18/18 13:19 Dose: 15 mg Pantoprazole Sodium (Protonix -) 40 mg PO DAILY [facility] Last Admin: 02/18/18 11:29 Dose: 40 mg Polyethylene Glycol (Miralax (For Daily Use) -) 17 gm PO DAILY [facility] Last Admin: 02/18/18 11:31 Dose: Not Given Ranolazine (Ranexa -) 500 mg PO BID [facility] Last Admin: 02/18/18 11:30 Dose: 500 mg Starch (Anusol Suppository -) 1 each RC BID [facility] Stop: 02/19/18 21:59 Last Admin: 02/18/18 11:31 Dose: Not Given ASSESSMENT AND PLAN: 47 year old male with Hx DVT/recurrent PEs (2014, 2017 x 2, last 11/15 - at which time he was switched from Coumadin to Eliquis), CAD (s/p 2 positive stress tests - 1 NM stress 08/09 ago in [place] and another ECG/exercise Stress 12/[address] [facility]), never proceeded to Cath despite the recommendation by Cardiology at [facility] to do so, worsening exertional chest pain, now with almost daily chest discomfort, sometimes occurring at rest, relieved by nitroglycerin. He is currently admitted after 2 episodes of chest pain 02/12 (one after climbing 3 flights of stairs and the other at rest, both relieved within minutes by NTG). He had associated diaphoresis. Denies palpitations, SOB, Nausea , vomiting. Currently pain-free. He also complains of 1 month history of Hematochezia without abdominal discomfort, nausea, or vomiting. Positive FH for both Colon Ca and CAD- Father had [place] and Colon Ca at age 54, Brother underwent CABG at age 39. Other brother also has Colon Ca. -Unstable Angina sec to underlying CAD - has rest episodes of CP with 2 prior positive stress tests in the past 6 months. -Hematochezia x 1 month (FH of colon Ca) s/p EGD/colonoscopy. -h/o DVT/multiple PEs on Eliquis/s/p IVC filter -Pancytopenia -Elevated transaminases -New diagnosis Hepatitis C -HTN -HLD -Hypothyroidism Plan: Cardiology input noted, ranexa added. 2D echo results reviewed. Continue ASA/beta andrea/ACEi/statin. Needs cardiac cath after GI optimization for hematochezia. GI input noted. s/p EGD/colonoscpy with internal haemorrhoids otherwise no bleed or concerns. Follow up pathology. Discussed with cardiology/GI, resume AC. Lovenox BID for now as plan for cath next week. Discussed with Dr. Degroot, plan for transfer for cardiac cath next week. Patient agreable. Trend LFTs, patient informed of Hepatitis C diagnosis, GI follow up. HIV screen neg comprehensive Abdo US with doppler noted. Hematology input noted. Continue Norvasc, Isosorbide, Lisinopril, Metoprolol, statin. Synthroid. GIPPX PPI DVTPPX full dose lovenox Dispo plan for transfer for cardiac cath next week . Plan discussed with patient in detail, all questions answered.
--- NOTE | 2018-02-18 14:04 | PN ---
Progress Note, Physician History of Present Illness: No further episodes of exertional angina, colonoscopy showed internal hemorrhoids, EGD did not show varices or PUD, may proceed with cath on Tuesday given holiday and clinical stability, patient agrees with plan. - Current Medication List Current Medications: Active Medications Amlodipine Besylate (Norvasc -) 5 mg PO DAILY [facility] Last Admin: 02/18/18 11:30 Dose: 5 mg Aspirin (Asa -) 81 mg PO DAILY [facility] Last Admin: 02/18/18 11:30 Dose: 81 mg Atorvastatin Calcium (Lipitor -) 80 mg PO DAILY [facility] Last Admin: 02/18/18 11:30 Dose: 80 mg Enoxaparin Sodium (Lovenox -) 120 mg SQ BID [facility] Last Admin: 02/18/18 11:30 Dose: 120 mg Isosorbide Mononitrate (Imdur -) 60 mg PO DAILY [facility] Last Admin: 02/18/18 11:30 Dose: 60 mg Levothyroxine Sodium (Synthroid -) 50 mcg PO DAILY [facility] Last Admin: 02/18/18 11:30 Dose: 50 mcg Lidocaine (Lidoderm Patch -) 1 patch TP BID [facility] Last Admin: 02/18/18 11:29 Dose: 1 patch Lisinopril (Prinivil) 10 mg PO DAILY [facility] Last Admin: 02/18/18 11:30 Dose: 10 mg Metoprolol Succinate (Toprol Xl -) 100 mg PO BID [facility] Last Admin: 02/18/18 11:30 Dose: 100 mg Nitroglycerin (Nitrostat -) 0.4 mg SL PRN PRN PRN Reason: FOR CHEST PAIN Oxycodone HCl (Roxicodone -) 15 mg PO Q4H PRN PRN Reason: PAIN LEVEL 6-10 Last Admin: 02/18/18 13:19 Dose: 15 mg Pantoprazole Sodium (Protonix -) 40 mg PO DAILY [facility] Last Admin: 02/18/18 11:29 Dose: 40 mg Polyethylene Glycol (Miralax (For Daily Use) -) 17 gm PO DAILY [facility] Last Admin: 02/18/18 11:31 Dose: Not Given Ranolazine (Ranexa -) 500 mg PO BID [facility] Last Admin: 02/18/18 11:30 Dose: 500 mg Starch (Anusol Suppository -) 1 each RC BID JESSICA Stop: 02/19/18 21:59 Last Admin: 02/18/18 11:31 Dose: Not Given - Objective Vital Signs: Vital Signs Temperature 97.8 F 02/18/18 06:00 Pulse Rate 78 02/18/18 10:00 Respiratory Rate 18 02/18/18 10:00 Blood Pressure 142/80 02/18/18 10:00 O2 Sat by Pulse Oximetry (%) 98 02/17/18 21:00 Constitutional: Yes: No Distress, Calm Neck: Yes: Supple Cardiovascular: Yes: Regular Rate and Rhythm Respiratory: Yes: Regular, CTA Bilaterally Gastrointestinal: Yes: Normal Bowel Sounds, Soft Edema: No Labs: CBC, BMP 02/17/18 05:30 02/17/18 05:30 INR, PTT INR 1.04 (0.83-1.09) 02/13/18 05:30 - ....Imaging EKG: Report Reviewed (Tele: NSR) Problem List - Problems (1) Progressive angina Code(s): I20.0 - UNSTABLE ANGINA (2) History of pulmonary embolism Code(s): Z86.711 - PERSONAL HISTORY OF PULMONARY EMBOLISM (3) H/O deep venous thrombosis Code(s): Z86.718 - PERSONAL HISTORY OF OTHER VENOUS THROMBOSIS AND EMBOLISM (5) Chronic anticoagulation Code(s): Z79.01 - GROUP HOME (CURRENT) USE OF ANTICOAGULANTS (6) Hematochezia Code(s): K92.1 - MELENA (7) Family history of malignant neoplasm of colon in first degree relative diagnosed when younger than 60 years of age Code(s): Z80.0 - FAMILY HISTORY OF MALIGNANT NEOPLASM OF DIGESTIVE ORGANS (8) Family history of premature coronary artery disease Code(s): Z82.49 - FAMILY HX OF ISCHEM HEART DIS AND OTH DIS OF [facility] (9) Hypothyroidism Code(s): E03.9 - HYPOTHYROIDISM, UNSPECIFIED Qualifiers: Hypothyroidism type: unspecified Qualified Code(s): E03.9 - Hypothyroidism , unspecified (10) Hyperlipidemia Code(s): E78.5 - HYPERLIPIDEMIA, UNSPECIFIED Qualifiers: Hyperlipidemia type: pure hypercholesterolemia Qualified Code(s): E78.00 - Pure hypercholesterolemia, unspecified; E78.0 - Pure hypercholesterolemia (11) Internal hemorrhoids Code(s): K64.8 - OTHER HEMORRHOIDS Assessment/Plan 11/29/2017 Echo: Mild cLVH, normal LVEF 55-60%, normal diastolic fxn, mod LAE, normal RV size and fxn 11/30/2017 Stress echo: Anteroseptal ischemia 02/13/2018 Echo: Normal RV and LV size and fxn LVEF 55-60%, normal biatrial sizes, mildly dilated ao 4.0 cm 1. CAD with progressive angina and LAD ischemia via Nuclear MPI and stress echocardiography 2. History of DVT/recurrent PE currently on DOAC/Eliquis and s/p IVC filter 3. Diastolic dysfunction 4. Family history of premature CAD 5. Hematochezia with family h/o colon CA referable to internal hemorrhoids 6. Hypothyroidism 7. T11 compression fracture with need for spinal fusion 8. Pancytopenua PLAN: 1. Previous cardiology studies and medical records reviewed, GI evaluation appreciated 2. Continue Ranexa 500 mg BID, Norvasc 5 mg QD, Lovenox 120 bid, ASA 81 mg QD, Lipitor 80 mg QD, Imdur 60 mg QD, Toprol XL 100 mg BID, Lisinopril 10 mg QD, add Plavix 75 qd 3. Cardiac catheterization tentatively Wed given long holiday weekend. on full- dose lovenox pending case.
[2018-02-18] MEDS: CLOPIDOGREL BISULFATE 75 MG TABLET (FP) PO SCH (17:32)
[2018-02-19] MEDS: oxyCODONE HCL 5 MG TABLET PO PRN ×6 (02:06→23:17)
[2018-02-19] MEDS: RANOLAZINE E.R. 500 MG TABLET (FP) PO SCH ×2 (10:38→22:52)
[2018-02-19] MEDS: LIDOCAINE 5% TOPICAL PATCH TP SCH ×2 (10:38→22:53)
[2018-02-19] MEDS: LISINOPRIL 10 MG TABLET (FP) PO SCH (10:38)
[2018-02-19] MEDS: PANTOPRAZOLE 40 MG TABLET (FP) PO SCH (10:38)
[2018-02-19] MEDS: amLODIPine BESYLATE 5 MG TABLET (FP) PO SCH (10:38)
[2018-02-19] MEDS: ASPIRIN 81 MG CHEWABLE TABLETS PO SCH (10:38)
[2018-02-19] MEDS: LEVOTHYROXINE NA 50 MCG TABLET (FP) PO SCH (10:38)
[2018-02-19] MEDS: ISOSORBIDE MONONITRATE 60 MG TAB.SR.24H (FP) PO SCH (10:38)
[2018-02-19] MEDS: ATORVASTATIN CA 80 MG TABLET (FP) PO SCH (10:38)
[2018-02-19] MEDS: CLOPIDOGREL BISULFATE 75 MG TABLET (FP) PO SCH (10:38)
[2018-02-19] MEDS: ENOXAPARIN NA (PORCINE) 120 MG/0.8 ML DISP.SYRIN SQ SCH ×2 (10:39→22:52)
[2018-02-19] MEDS: POLYETHYLENE GLYCOL 3350 119 GM BTL PO SCH (10:45)
[2018-02-19] MEDS: PHENYLEPHRINE 0.25%/STARCH 1 EACH SUPP.RECT RC SCH (10:45)
--- NOTE | 2018-02-19 13:10 | PN ---
Physical Exam: SUBJECTIVE: Patient seen and examined, no complaints, no further chest pain or dark or bloody stools overnight. OBJECTIVE: Vital Signs Period Temp Pulse Resp BP Sys/Franklin Pulse Ox Last 24 Hr 97.5 F-98.6 F 69-98 18-20 122-153/52-77 98-99 GENERAL: The patient is awake, alert, and fully oriented, in no acute distress. HEAD: Normal with no signs of trauma. EYES: PERRL, extraocular movements intact, sclera anicteric, conjunctiva clear. No ptosis. ENT: Ears normal, nares patent, oropharynx clear without exudates, moist mucous membranes. NECK: Trachea midline, full range of motion, supple. LUNGS: Breath sounds equal, clear to auscultation bilaterally, no wheezes, no crackles, no accessory muscle use. HEART: Regular rate and rhythm, S1, S2 ABDOMEN: Soft, nontender, nondistended, normoactive bowel sounds, no guarding, no rebound, no hepatosplenomegaly, no masses. EXTREMITIES: 2+ pulses, warm, well-perfused, no edema. NEUROLOGICAL: Cranial nerves II through XII grossly intact. Normal speech, gait not observed. PSYCH: Normal mood, normal affect. SKIN: Warm, dry, normal turgor, no rashes or lesions noted Active Medications Generic Name Dose Route Start Last Admin Trade Name Felizq PRN Reason Stop Dose Admin Amlodipine Besylate 5 mg 02/13/18 10:00 02/19/18 10:38 Norvasc - PO 5 mg DAILY JESSICA Administration Aspirin 81 mg 02/13/18 10:00 02/19/18 10:38 Asa - PO 81 mg DAILY JESSICA Administration Atorvastatin Calcium 80 mg 02/13/18 10:00 02/19/18 10:38 Lipitor - PO 80 mg DAILY JESSICA Administration Clopidogrel Bisulfate 75 mg 02/18/18 16:15 02/19/18 10:38 Plavix - PO 75 mg DAILY JESSICA Administration Enoxaparin Sodium 120 mg 02/17/18 22:00 02/19/18 10:39 Lovenox - SQ 120 mg BID JESSICA Administration Isosorbide Mononitrate 60 mg 02/13/18 10:00 02/19/18 10:38 Imdur - PO 60 mg DAILY JESSICA Administration Levothyroxine Sodium 50 mcg 02/13/18 10:00 02/19/18 10:38 Synthroid - PO 50 mcg DAILY JESSICA Administration Lidocaine 1 patch 02/12/18 22:00 02/19/18 10:38 Lidoderm Patch - TP 1 patch BID JESSICA Administration Lisinopril 10 mg 02/13/18 10:00 02/19/18 10:38 Prinivil PO 10 mg DAILY JESSICA Administration Metoprolol Succinate 100 mg 02/12/18 22:00 02/19/18 10:38 Toprol Xl - PO 100 mg BID JESSICA Administration Nitroglycerin 0.4 mg 02/12/18 18:04 Nitrostat - SL PRN PRN FOR CHEST PAIN Oxycodone HCl 15 mg 02/16/18 04:56 02/19/18 10:39 Roxicodone - PO 15 mg Q4H PRN Administration PAIN LEVEL 6-10 Pantoprazole Sodium 40 mg 02/12/18 19:30 02/19/18 10:38 Protonix - PO 40 mg DAILY JESSICA Administration Polyethylene Glycol 17 gm 02/17/18 10:00 02/19/18 10:45 Miralax (For Daily Use) - PO Not Given DAILY [facility] Ranolazine 500 mg 02/13/18 11:45 02/19/18 10:38 Ranexa - PO 500 mg BID JESSICA Administration Starch 1 each 02/16/18 22:00 02/19/18 10:45 Anusol Suppository - RC 02/19/18 21:59 Not Given BID JESSICA ASSESSMENT/PLAN: 47 year old male with Hx DVT/recurrent PEs (2014, 2017 x 2, last 11/15 - at which time he was switched from Coumadin to Eliquis), CAD (s/p 2 positive stress tests - 1 NM stress 08/09 ago in [place] and another ECG/exercise Stress 12/15 at [facility]), never proceeded to Cath despite the recommendation by Cardiology at [facility] to do so, worsening exertional chest pain, now with almost daily chest discomfort, sometimes occurring at rest, relieved by nitroglycerin. He is currently admitted after 2 episodes of chest pain 02/12 (one after climbing 3 flights of stairs and the other at rest, both relieved within minutes by NTG). He had associated diaphoresis. Denies palpitations, SOB, Nausea , vomiting. Currently pain-free. He also complains of 1 month history of Hematochezia without abdominal discomfort, nausea, or vomiting. Positive FH for both Colon Ca and CAD- Father had [place] and Colon Ca at age 54, Brother underwent CABG at age 39. Other brother also has Colon Ca. -Unstable Angina sec to underlying CAD - has rest episodes of CP with 2 prior positive stress tests in the past 6 months. -Hematochezia x 1 month (FH of colon Ca) s/p EGD/colonoscopy. -h/o DVT/multiple PEs on Eliquis/s/p IVC filter -Pancytopenia -Elevated transaminases -New diagnosis Hepatitis C -HTN -HLD -Hypothyroidism Plan: Cardiology input noted, ranexa added. 2D echo results reviewed. Continue ASA/beta andrea/ACEi/statin. Needs cardiac cath after GI optimization for hematochezia. GI input noted. s/p EGD/colonoscpy with internal haemorrhoids otherwise no bleed or concerns. Follow up pathology. Discussed with cardiology/GI, resume AC. Lovenox BID for now as plan for cath next week. Discussed with Dr. Degroot, plan for transfer for cardiac cath next week. Patient agreable. Trend LFTs, patient informed of Hepatitis C diagnosis, GI follow up. HIV screen neg comprehensive Abdo US with doppler noted. Hematology input noted. Continue Norvasc, Isosorbide, Lisinopril, Metoprolol, statin. Synthroid. GIPPX PPI DVTPPX full dose lovenox Interval labs Dispo plan for transfer for cardiac cath next week . Plan discussed with patient in detail, all questions answered. Visit type - Emergency Visit Emergency Visit: Yes ED Registration Date: 02/13/18 Care time: The patient presented to the Emergency Department on the above date and was hospitalized for further evaluation of their emergent condition. - New Patient This patient is new to me today: No - Critical Care Critical Care patient: No - Discharge Referral Referred to [facility] No
--- NOTE | 2018-02-19 14:12 | PN ---
Progress Note, Physician History of Present Illness: No further episodes of exertional angina, colonoscopy showed internal hemorrhoids, EGD did not show varices or PUD, may proceed with cath on Tuesday given holiday and clinical stability, patient agrees with plan. - Current Medication List Current Medications: Active Medications Amlodipine Besylate (Norvasc -) 5 mg PO DAILY [facility] Last Admin: 02/19/18 10:38 Dose: 5 mg Aspirin (Asa -) 81 mg PO DAILY [facility] Last Admin: 02/19/18 10:38 Dose: 81 mg Atorvastatin Calcium (Lipitor -) 80 mg PO DAILY [facility] Last Admin: 02/19/18 10:38 Dose: 80 mg Clopidogrel Bisulfate (Plavix -) 75 mg PO DAILY [facility] Last Admin: 02/19/18 10:38 Dose: 75 mg Enoxaparin Sodium (Lovenox -) 120 mg SQ BID [facility] Last Admin: 02/19/18 10:39 Dose: 120 mg Isosorbide Mononitrate (Imdur -) 60 mg PO DAILY [facility] Last Admin: 02/19/18 10:38 Dose: 60 mg Levothyroxine Sodium (Synthroid -) 50 mcg PO DAILY [facility] Last Admin: 02/19/18 10:38 Dose: 50 mcg Lidocaine (Lidoderm Patch -) 1 patch TP BID [facility] Last Admin: 02/19/18 10:38 Dose: 1 patch Lisinopril (Prinivil) 10 mg PO DAILY [facility] Last Admin: 02/19/18 10:38 Dose: 10 mg Metoprolol Succinate (Toprol Xl -) 100 mg PO BID [facility] Last Admin: 02/19/18 10:38 Dose: 100 mg Nitroglycerin (Nitrostat -) 0.4 mg SL PRN PRN PRN Reason: FOR CHEST PAIN Oxycodone HCl (Roxicodone -) 15 mg PO Q4H PRN PRN Reason: PAIN LEVEL 6-10 Last Admin: 02/19/18 10:39 Dose: 15 mg Pantoprazole Sodium (Protonix -) 40 mg PO DAILY [facility] Last Admin: 02/19/18 10:38 Dose: 40 mg Polyethylene Glycol (Miralax (For Daily Use) -) 17 gm PO DAILY [facility] Last Admin: 02/19/18 10:45 Dose: Not Given Ranolazine (Ranexa -) 500 mg PO BID [facility] Last Admin: 02/19/18 10:38 Dose: 500 mg Starch (Anusol Suppository -) 1 each RC BID JESSICA Stop: 02/19/18 21:59 Last Admin: 02/19/18 10:45 Dose: Not Given - Objective Vital Signs: Vital Signs Temperature 98.2 F 02/19/18 13:55 Pulse Rate 84 02/19/18 13:55 Respiratory Rate 20 02/19/18 13:55 Blood Pressure 144/69 02/19/18 13:55 O2 Sat by Pulse Oximetry (%) 99 02/19/18 09:00 Constitutional: Yes: No Distress, Calm Neck: Yes: Supple Cardiovascular: Yes: Regular Rate and Rhythm Respiratory: Yes: Regular, CTA Bilaterally Gastrointestinal: Yes: Normal Bowel Sounds, Soft Edema: No Labs: CBC, BMP 02/17/18 05:30 02/17/18 05:30 INR, PTT INR 1.04 (0.83-1.09) 02/13/18 05:30 - ....Imaging EKG: Report Reviewed (Tele: NSR) Problem List - Problems (1) Progressive angina Code(s): I20.0 - UNSTABLE ANGINA (2) History of pulmonary embolism Code(s): Z86.711 - PERSONAL HISTORY OF PULMONARY EMBOLISM (3) H/O deep venous thrombosis Code(s): Z86.718 - PERSONAL HISTORY OF OTHER VENOUS THROMBOSIS AND EMBOLISM (5) Chronic anticoagulation Code(s): Z79.01 - STAFF HOME THERAPY RN (CURRENT) USE OF ANTICOAGULANTS (6) Hematochezia Code(s): K92.1 - MELENA (7) Family history of malignant neoplasm of colon in first degree relative diagnosed when younger than 60 years of age Code(s): Z80.0 - FAMILY HISTORY OF MALIGNANT NEOPLASM OF DIGESTIVE ORGANS (8) Family history of premature coronary artery disease Code(s): Z82.49 - FAMILY HX OF ISCHEM HEART DIS AND OTH DIS OF [facility] (9) Hypothyroidism Code(s): E03.9 - HYPOTHYROIDISM, UNSPECIFIED Qualifiers: Hypothyroidism type: unspecified Qualified Code(s): E03.9 - Hypothyroidism , unspecified (10) Hyperlipidemia Code(s): E78.5 - HYPERLIPIDEMIA, UNSPECIFIED Qualifiers: Hyperlipidemia type: pure hypercholesterolemia Qualified Code(s): E78.00 - Pure hypercholesterolemia, unspecified; E78.0 - Pure hypercholesterolemia (11) Internal hemorrhoids Code(s): K64.8 - OTHER HEMORRHOIDS Assessment/Plan 11/29/2017 Echo: Mild cLVH, normal LVEF 55-60%, normal diastolic fxn, mod LAE, normal RV size and fxn 11/30/2017 Stress echo: Anteroseptal ischemia 02/13/2018 Echo: Normal RV and LV size and fxn LVEF 55-60%, normal biatrial sizes, mildly dilated ao 4.0 cm 1. CAD with progressive angina and LAD ischemia via Nuclear MPI and stress echocardiography 2. History of DVT/recurrent PE currently on DOAC/Eliquis and s/p IVC filter 3. Diastolic dysfunction 4. Family history of premature CAD 5. Hematochezia with family h/o colon CA referable to internal hemorrhoids 6. Hypothyroidism 7. T11 compression fracture with need for spinal fusion 8. Pancytopenua PLAN: 1. Previous cardiology studies and medical records reviewed, GI evaluation appreciated 2. Continue Ranexa 500 mg BID, Norvasc 5 mg QD, Lovenox 120 bid, ASA 81 mg QD, Lipitor 80 mg QD, Imdur 60 mg QD, Toprol XL 100 mg BID, Lisinopril 10 mg QD, and Plavix 75 qd 3. Cardiac catheterization tentatively Wed given long holiday weekend. on full- dose lovenox pending case.
[2018-02-20] MEDS: oxyCODONE HCL 5 MG TABLET PO PRN ×5 (04:59→22:25)
[2018-02-20 07:15] LABS: BASO % 0.3 % (0-2.0); EOS % 5.1 % (0-4.5); HEMATOCRIT 36.4 % (35.4-49); HEMOGLOBIN 11.6 GM/dL (11.7-16.9); LYMPH % 22.7 % (8-40); MCH 26.8 pg (25.7-33.7); MCHC 31.9 g/dl (32.0-35.9); MEAN PLT VOLUME 9.1 fl (7.5-11.1); MONO % 9.5 % (3.8-10.2); NEUT % 62.4 % (42.8-82.8); PLATELET COUNT 80 K/MM3 (134-434); RBC 4.34 M/mm3 (4.00-5.60); RDW 16.2 % (11.9-15.9); WHITE BLOOD COUNT 2.2 K/mm3 (4.0-10.0)
--- NOTE | 2018-02-20 07:35 | PN ---
Teaching Attending Note Name of Resident: Holland Godoy ATTENDING PHYSICIAN STATEMENT I saw and evaluated the patient. I reviewed the resident's note and discussed the case with the resident. I agree with the resident's findings and plan as documented with exceptions below. SUBJECTIVE: Patient seen and examined, no chest pain or dark or bloody stools. No complaints. OBJECTIVE: Vital Signs Period Temp Pulse Resp BP Sys/Franklin Pulse Ox Last 24 Hr 98 F-98.8 F 78-98 18-20 101-153/52-76 98-99 Intake & Output 02/17/18 02/18/18 02/19/18 02/20/18 23:59 23:59 23:59 23:59 Intake Total 706 859 5746 10 Balance 864 510 4175 10 General: sitting in bed in no acute distress Active Medications Amlodipine Besylate (Norvasc -) 5 mg PO DAILY [facility] Last Admin: 02/19/18 10:38 Dose: 5 mg Aspirin (Asa -) 81 mg PO DAILY [facility] Last Admin: 02/19/18 10:38 Dose: 81 mg Atorvastatin Calcium (Lipitor -) 80 mg PO DAILY [facility] Last Admin: 02/19/18 10:38 Dose: 80 mg Clopidogrel Bisulfate (Plavix -) 75 mg PO DAILY [facility] Last Admin: 02/19/18 10:38 Dose: 75 mg Enoxaparin Sodium (Lovenox -) 120 mg SQ BID [facility] Last Admin: 02/19/18 22:52 Dose: 120 mg Isosorbide Mononitrate (Imdur -) 60 mg PO DAILY [facility] Last Admin: 02/19/18 10:38 Dose: 60 mg Levothyroxine Sodium (Synthroid -) 50 mcg PO DAILY [facility] Last Admin: 02/19/18 10:38 Dose: 50 mcg Lidocaine (Lidoderm Patch -) 1 patch TP BID [facility] Last Admin: 02/19/18 22:53 Dose: 1 patch Lisinopril (Prinivil) 10 mg PO DAILY [facility] Last Admin: 02/19/18 10:38 Dose: 10 mg Metoprolol Succinate (Toprol Xl -) 100 mg PO BID [facility] Last Admin: 02/19/18 22:52 Dose: 100 mg Nitroglycerin (Nitrostat -) 0.4 mg SL PRN PRN PRN Reason: FOR CHEST PAIN Oxycodone HCl (Roxicodone -) 15 mg PO Q4H PRN PRN Reason: PAIN LEVEL 6-10 Last Admin: 02/20/18 04:59 Dose: 15 mg Pantoprazole Sodium (Protonix -) 40 mg PO DAILY [facility] Last Admin: 02/19/18 10:38 Dose: 40 mg Polyethylene Glycol (Miralax (For Daily Use) -) 17 gm PO DAILY [facility] Last Admin: 02/19/18 10:45 Dose: Not Given Ranolazine (Ranexa -) 500 mg PO BID [facility] Last Admin: 02/19/18 22:52 Dose: 500 mg ASSESSMENT AND PLAN: 47 year old male with Hx DVT/recurrent PEs (2014, 2017 x 2, last 11/15 - at which time he was switched from Coumadin to Eliquis), CAD (s/p 2 positive stress tests - 1 NM stress 08/09 ago in [place] and another ECG/exercise Stress 12/15 at [facility]), never proceeded to Cath despite the recommendation by Cardiology at [facility] to do so, worsening exertional chest pain, now with almost daily chest discomfort, sometimes occurring at rest, relieved by nitroglycerin. He is currently admitted after 2 episodes of chest pain 02/12 (one after climbing 3 flights of stairs and the other at rest, both relieved within minutes by NTG). He had associated diaphoresis. Denies palpitations, SOB, Nausea , vomiting. Currently pain-free. He also complains of 1 month history of Hematochezia without abdominal discomfort, nausea, or vomiting. Positive FH for both Colon Ca and CAD- Father had CO and Colon Ca at age 54, Brother underwent CABG at age 39. Other brother also has Colon Ca. -Unstable Angina sec to underlying CAD - has rest episodes of CP with 2 prior positive stress tests in the past 6 months. -Hematochezia x 1 month (FH of colon Ca) s/p EGD/colonoscopy. -h/o DVT/multiple PEs on Eliquis/s/p IVC filter -Pancytopenia -Elevated transaminases -New diagnosis Hepatitis C -HTN -HLD -Hypothyroidism Plan: Cardiology input noted, ranexa added. 2D echo results reviewed. Continue ASA/beta andrea/ACEi/statin. GI input noted. s/p EGD/colonoscpy with internal haemorrhoids otherwise no bleed or concerns. Follow up pathology. Discussed with cardiology/GI, resume AC. Lovenox BID for now as plan for cath this week Discussed with Dr. Degroot, plan for transfer for cardiac cath this week. Patient agreable. LFTs mildly worse, new Hep C diagnosis, patient informed of Hepatitis C diagnosis, GI follow up. Trend LFTs fr now. HIV screen neg comprehensive Abdo US with doppler noted. Hematology input noted. Continue Norvasc, Isosorbide, Lisinopril, Metoprolol, statin. Synthroid. GIPPX PPI DVTPPX full dose lovenox Interval labs Dispo plan for transfer for cardiac cath this week . Plan discussed with patient in detail, all questions answered.
[2018-02-20 08:02] LABS: ALBUMIN 3.3 g/dl (3.4-5.0); ALK PHOS 55 U/L (45-117); ANION GAP 6 MMOL/L (8-16); BILIRUBIN,DIRECT 0.1 mg/dL (0.0-0.2); BILIRUBIN,TOTAL 0.2 mg/dL (0.2-1); BLOOD UREA NITROGEN 9 mg/dL (7-18); CALCIUM 7.9 mg/dL (8.5-10.1); CHLORIDE 108 mmol/L (98-107); CO2 27 mmol/L (21-32); CREATININE 0.9 mg/dL (0.55-1.3); GLUCOSE,RANDOM 117 mg/dL (74-106); PHOSPHOROUS 3.2 mg/dL (2.5-4.9); POTASSIUM 3.6 mmol/L (3.5-5.1); SGOT/AST 92 U/L (15-37); SGPT/ALT 148 U/L (13-61); SODIUM 141 mmol/L (136-145); TOT PROT 6.8 g/dl (6.4-8.2)
[2018-02-20] MEDS: ENOXAPARIN NA (PORCINE) 120 MG/0.8 ML DISP.SYRIN SQ SCH ×2 (09:37→22:26)
[2018-02-20] MEDS: POLYETHYLENE GLYCOL 3350 119 GM BTL PO SCH (09:37)
[2018-02-20] MEDS: ISOSORBIDE MONONITRATE 60 MG TAB.SR.24H (FP) PO SCH (09:37)
[2018-02-20] MEDS: ATORVASTATIN CA 80 MG TABLET (FP) PO SCH (09:37)
[2018-02-20] MEDS: ASPIRIN 81 MG CHEWABLE TABLETS PO SCH (09:37)
[2018-02-20] MEDS: LIDOCAINE 5% TOPICAL PATCH TP SCH ×2 (09:37→22:26)
[2018-02-20] MEDS: LEVOTHYROXINE NA 50 MCG TABLET (FP) PO SCH (09:38)
[2018-02-20] MEDS: CLOPIDOGREL BISULFATE 75 MG TABLET (FP) PO SCH (09:38)
[2018-02-20] MEDS: amLODIPine BESYLATE 5 MG TABLET (FP) PO SCH (09:38)
[2018-02-20] MEDS: LISINOPRIL 10 MG TABLET (FP) PO SCH (09:38)
[2018-02-20] MEDS: PANTOPRAZOLE 40 MG TABLET (FP) PO SCH (09:38)
[2018-02-20] MEDS: RANOLAZINE E.R. 500 MG TABLET (FP) PO SCH ×2 (09:38→22:26)
--- NOTE | 2018-02-20 11:50 | PN ---
Physical Exam: SUBJECTIVE: Patient seen and examined this AM. He states he has no complaints other than being bored in the hospital. He expresses that he is a little nervous about the cath but understands its importance and hopes that he feels much better following the procedure. OBJECTIVE: Vital Signs Period Temp Pulse Resp BP Sys/Franklin Pulse Ox Last 24 Hr 98.0 F-98.8 F 78-87 18-20 101-151/52-76 98-98 GENERAL: A&O, no acute distress HEAD: Normocephalic, atraumatic. EYES: PERRL, no scleral icterus EARS, NOSE, THROAT: oropharynx clear without exudates. Moist mucous membranes. NECK: supple without lymphadenopathy LUNGS: CTA b/l, no crackles or wheezes HEART: Regular rate and rhythm, normal S1 and S2 without murmur ABDOMEN: Soft, nontender to palpation, normoactive bowel sounds EXTREMITIES: 2+ pulses, warm, well-perfused. No peripheral edema. NEUROLOGICAL: Cranial nerves II-XII grossly intact. Normal speech. Laboratory Results - last 24 hr 02/20/18 02/20/18 05:40 05:40 WBC 2.2 L RBC 4.34 Hgb 11.6 L Hct 36.4 MCV 84.0 MCH 26.8 MCHC 31.9 L RDW 16.2 H Plt Count 80 L MPV 9.1 Absolute Neuts (auto) 1.4 L Neutrophils % 62.4 Lymphocytes % 22.7 D Monocytes % 9.5 Eosinophils % 5.1 H Basophils % 0.3 Nucleated RBC % 0 Sodium 141 Potassium 3.6 Chloride 108 H Carbon Dioxide 27 Anion Gap 6 L BUN 9 Creatinine 0.9 Creat Clearance w eGFR > 60 Random Glucose 117 H Calcium 7.9 L Phosphorus 3.2 Magnesium 2.0 Total Bilirubin 0.2 Direct Bilirubin 0.1 AST 92 H ALT 148 H Alkaline Phosphatase 55 Total Protein 6.8 Albumin 3.3 L Active Medications Generic Name Dose Route Start Last Admin Trade Name Freq PRN Reason Stop Dose Admin Amlodipine Besylate 5 mg 02/13/18 10:00 02/20/18 09:38 Norvasc - PO 5 mg DAILY JESSICA Administration Aspirin 81 mg 02/13/18 10:00 02/20/18 09:37 Asa - PO 81 mg DAILY JESSICA Administration Atorvastatin Calcium 80 mg 02/13/18 10:00 02/20/18 09:37 Lipitor - PO 80 mg DAILY JESSICA Administration Clopidogrel Bisulfate 75 mg 02/18/18 16:15 02/20/18 09:38 Plavix - PO 75 mg DAILY JESSICA Administration Enoxaparin Sodium 120 mg 02/17/18 22:00 02/20/18 09:37 Lovenox - SQ 120 mg BID JESSICA Administration Isosorbide Mononitrate 60 mg 02/13/18 10:00 02/20/18 09:37 Imdur - PO 60 mg DAILY JESSICA Administration Levothyroxine Sodium 50 mcg 02/13/18 10:00 02/20/18 09:38 Synthroid - PO 50 mcg DAILY [facility] Administration Lidocaine 1 patch 02/12/18 22:00 02/20/18 09:37 Lidoderm Patch - TP 1 patch BID [facility] Administration Lisinopril 10 mg 02/13/18 10:00 02/20/18 09:38 Prinivil PO 10 mg DAILY [facility] Administration Metoprolol Succinate 100 mg 02/12/18 22:00 02/20/18 09:38 Toprol Xl - PO 100 mg BID [facility] Administration Nitroglycerin 0.4 mg 02/12/18 18:04 Nitrostat - SL PRN PRN FOR CHEST PAIN Oxycodone HCl 15 mg 02/16/18 04:56 02/20/18 09:35 Roxicodone - PO 15 mg Q4H PRN Administration PAIN LEVEL 6-10 Pantoprazole Sodium 40 mg 02/12/18 19:30 02/20/18 09:38 Protonix - PO 40 mg DAILY [facility] Administration Polyethylene Glycol 17 gm 02/17/18 10:00 02/20/18 09:37 Miralax (For Daily Use) - PO Not Given DAILY [facility] Ranolazine 500 mg 02/13/18 11:45 02/20/18 09:38 Ranexa - PO 500 mg BID [facility] Administration ASSESSMENT/PLAN: 47 y/o gentleman with a significant past medical history of HTN, HLD, positive stress test in [place] 6 months ago, positive stress test [facility] November 2017, hypothyroidism, DVT (2011 s/p [place] Knee surgery), Pulmonary embolism (2014), Pulmonary embolism Mar 2017 (started on Coumadin), another PE Oct 2017 ( Coumadin switched to eliquis), IVC filter placement admitted with complaint of left sided chest pain. CAD with Unstable Angina -Troponins negative -[address]/T wave abnormalities -Pt has had 2 positive stress tests in the last 6 months and has been told he will need PCI -Cardiology consult appreciated, will likely be transferred Tuesday following and for PCI -Echo noted with normal EF and no wall motion abnormalities -Ranexa 500 mg BID Hematochezia -Pt reports intermittent hematochezia for about one month -Family hx of Colon Ca in father at 54 -GI consultation appreciated -Colonoscopy with small diverticula but no other concerning findings -EGD without signs of varices or gastritis -Trend H/H, currently stable Recurrent DVT/PEs with IVC Filter -Pt reports negative hypercoagulable workup in the past -On Eliquis 5 mg PO BID, though currently held for Colonoscopy -Lovenox 120 mg SQ BID -Heme/onc consulted -Recommend standard cancer screening as pt has not had all adequate screening HTN -Lisinopril 10 mg PO Daily -Toprol XL 100 mg PO BID -Imdur 60 mg PO Daily -Norvasc 5 mg PO Daily Hypothyroidism -Synthroid 50 mcg PO AM HLD -Lipitor 80 mg PO HS Transaminitis -Pt denies alcohol use -Hep C Ab positive, RNA PCR positive -New diagnosis of HCV -EGD did not reveal any varices or gastritis Pancytopenia -unknown etiology, could be secondary to malignant process -Heme/Onc consulted as above -Splenic US with mildly enlarged spleen DVT Prophylaxis -Eliquis was held for GI workup and cath -Lovenox 120 mg SQ BID FEN -Fluids: none -Electrolytes: No electrolyte abnormalities -Nutrition: Na controlled diet Disposition Telemetry Visit type - Emergency Visit Emergency Visit: Yes ED Registration Date: 02/13/18 Care time: The patient presented to the Emergency Department on the above date and was hospitalized for further evaluation of their emergent condition. - New Patient This patient is new to me today: No - Critical Care Critical Care patient: No
--- NOTE | 2018-02-20 15:40 | PN ---
Progress Note, Physician History of Present Illness: No further episodes of exertional angina, colonoscopy showed internal hemorrhoids, EGD did not show varices or PUD, may proceed with cath on Tuesday given holiday and clinical stability, patient agrees with plan. - Current Medication List Current Medications: Active Medications Amlodipine Besylate (Norvasc -) 5 mg PO DAILY [facility] Last Admin: 02/20/18 09:38 Dose: 5 mg Aspirin (Asa -) 81 mg PO DAILY [facility] Last Admin: 02/20/18 09:37 Dose: 81 mg Atorvastatin Calcium (Lipitor -) 80 mg PO DAILY [facility] Last Admin: 02/20/18 09:37 Dose: 80 mg Clopidogrel Bisulfate (Plavix -) 75 mg PO DAILY [facility] Last Admin: 02/20/18 09:38 Dose: 75 mg Enoxaparin Sodium (Lovenox -) 120 mg SQ BID [facility] Last Admin: 02/20/18 09:37 Dose: 120 mg Isosorbide Mononitrate (Imdur -) 60 mg PO DAILY [facility] Last Admin: 02/20/18 09:37 Dose: 60 mg Levothyroxine Sodium (Synthroid -) 50 mcg PO DAILY [facility] Last Admin: 02/20/18 09:38 Dose: 50 mcg Lidocaine (Lidoderm Patch -) 1 patch TP BID [facility] Last Admin: 02/20/18 09:37 Dose: 1 patch Lisinopril (Prinivil) 10 mg PO DAILY [facility] Last Admin: 02/20/18 09:38 Dose: 10 mg Metoprolol Succinate (Toprol Xl -) 100 mg PO BID [facility] Last Admin: 02/20/18 09:38 Dose: 100 mg Nitroglycerin (Nitrostat -) 0.4 mg SL PRN PRN PRN Reason: FOR CHEST PAIN Oxycodone HCl (Roxicodone -) 15 mg PO Q4H PRN PRN Reason: PAIN LEVEL 6-10 Last Admin: 02/20/18 13:38 Dose: 15 mg Pantoprazole Sodium (Protonix -) 40 mg PO DAILY [facility] Last Admin: 02/20/18 09:38 Dose: 40 mg Polyethylene Glycol (Miralax (For Daily Use) -) 17 gm PO DAILY [facility] Last Admin: 02/20/18 09:37 Dose: Not Given Ranolazine (Ranexa -) 500 mg PO BID [facility] Last Admin: 02/20/18 09:38 Dose: 500 mg - Objective Vital Signs: Vital Signs Temperature 98.4 F 02/20/18 14:00 Pulse Rate 84 02/20/18 14:00 Respiratory Rate 18 02/20/18 10:00 Blood Pressure 120/71 02/20/18 14:00 O2 Sat by Pulse Oximetry (%) 98 02/20/18 09:00 Constitutional: Yes: No Distress, Calm Neck: Yes: Supple Cardiovascular: Yes: Regular Rate and Rhythm Respiratory: Yes: Regular, CTA Bilaterally Gastrointestinal: Yes: Normal Bowel Sounds, Soft Edema: No Labs: CBC, BMP 02/20/18 05:40 02/20/18 05:40 INR, PTT INR 1.04 (0.83-1.09) 02/13/18 05:30 - ....Imaging EKG: Report Reviewed (Tele: NSR) Problem List - Problems (1) Progressive angina Code(s): I20.0 - UNSTABLE ANGINA (2) History of pulmonary embolism Code(s): Z86.711 - PERSONAL HISTORY OF PULMONARY EMBOLISM (3) H/O deep venous thrombosis Code(s): Z86.718 - PERSONAL HISTORY OF OTHER VENOUS THROMBOSIS AND EMBOLISM (5) Chronic anticoagulation Code(s): Z79.01 - CALIBRATOR BAROMETERS (CURRENT) USE OF ANTICOAGULANTS (6) Hematochezia Code(s): K92.1 - MELENA (7) Family history of malignant neoplasm of colon in first degree relative diagnosed when younger than 60 years of age Code(s): Z80.0 - FAMILY HISTORY OF MALIGNANT NEOPLASM OF DIGESTIVE ORGANS (8) Family history of premature coronary artery disease Code(s): Z82.49 - FAMILY HX OF ISCHEM HEART DIS AND OTH DIS OF THE [facility] SYS (9) Hypothyroidism Code(s): E03.9 - HYPOTHYROIDISM, UNSPECIFIED Qualifiers: Hypothyroidism type: unspecified Qualified Code(s): E03.9 - Hypothyroidism , unspecified (10) Hyperlipidemia Code(s): E78.5 - HYPERLIPIDEMIA, UNSPECIFIED Qualifiers: Hyperlipidemia type: pure hypercholesterolemia Qualified Code(s): E78.00 - Pure hypercholesterolemia, unspecified; E78.0 - Pure hypercholesterolemia (11) Internal hemorrhoids Code(s): K64.8 - OTHER HEMORRHOIDS Assessment/Plan 11/29/2017 Echo: Mild cLVH, normal LVEF 55-60%, normal diastolic fxn, mod LAE, normal RV size and fxn 11/30/2017 Stress echo: Anteroseptal ischemia 02/13/2018 Echo: Normal RV and LV size and fxn LVEF 55-60%, normal biatrial sizes, mildly dilated ao 4.0 cm 1. CAD with progressive angina and LAD ischemia via Nuclear MPI and stress echocardiography 2. History of DVT/recurrent PE currently on DOAC/Eliquis and s/p IVC filter 3. Diastolic dysfunction 4. Family history of premature CAD 5. Hematochezia with family h/o colon CA referable to internal hemorrhoids 6. Hypothyroidism 7. T11 compression fracture with need for spinal fusion 8. Pancytopenua PLAN: 1. Previous cardiology studies and medical records reviewed, GI evaluation appreciated 2. Continue Ranexa 500 mg BID, Norvasc 5 mg QD, Lovenox 120 bid, ASA 81 mg QD, Lipitor 80 mg QD, Imdur 60 mg QD, Toprol XL 100 mg BID, Lisinopril 10 mg QD, and Plavix 75 qd 3. Cardiac catheterization tentatively Wed. Maintain on full-dose lovenox pending case.
[2018-02-21] MEDS: oxyCODONE HCL 5 MG TABLET PO PRN ×5 (03:06→20:19)
--- NOTE | 2018-02-21 09:17 | PN ---
Progress Note, Physician History of Present Illness: 47 year old male with Hx DVT/recurrent PEs (2014, 2018 x 2, last 11/15 - at which time he was switched from Coumadin to Eliquis), CAD (s/p 2 positive stress tests - 1 NM stress 08/09 ago in [place] and another ECG/exercise Stress 12/15 at [facility]), never proceeded to Cath despite the recommendation by Cardiology at [facility] to do so, worsening exertional chest pain, now with almost daily chest discomfort, sometimes occurring at rest, relieved by nitroglycerin. He is currently admitted after 2 episodes of chest pain 02/12 (one after climbing 3 flights of stairs and the other at rest, both relieved within minutes by NTG). He had associated diaphoresis. Denies palpitations, SOB, Nausea , vomiting. Currently pain-free. - Current Medication List Current Medications: Active Medications Amlodipine Besylate (Norvasc -) 5 mg PO DAILY [facility] Last Admin: 02/20/18 09:38 Dose: 5 mg Aspirin (Asa -) 81 mg PO DAILY [facility] Last Admin: 02/20/18 09:37 Dose: 81 mg Atorvastatin Calcium (Lipitor -) 80 mg PO DAILY [facility] Last Admin: 02/20/18 09:37 Dose: 80 mg Clopidogrel Bisulfate (Plavix -) 75 mg PO DAILY [facility] Last Admin: 02/20/18 09:38 Dose: 75 mg Enoxaparin Sodium (Lovenox -) 120 mg SQ BID [facility] Last Admin: 02/20/18 22:26 Dose: 120 mg Isosorbide Mononitrate (Imdur -) 60 mg PO DAILY [facility] Last Admin: 02/20/18 09:37 Dose: 60 mg Levothyroxine Sodium (Synthroid -) 50 mcg PO DAILY [facility] Last Admin: 02/20/18 09:38 Dose: 50 mcg Lidocaine (Lidoderm Patch -) 1 patch TP BID [facility] Last Admin: 02/20/18 22:26 Dose: Not Given Lisinopril (Prinivil) 10 mg PO DAILY [facility] Last Admin: 02/20/18 09:38 Dose: 10 mg Metoprolol Succinate (Toprol Xl -) 100 mg PO BID [facility] Last Admin: 02/20/18 22:26 Dose: 100 mg Nitroglycerin (Nitrostat -) 0.4 mg SL PRN PRN PRN Reason: FOR CHEST PAIN Oxycodone HCl (Roxicodone -) 15 mg PO Q4H PRN PRN Reason: PAIN LEVEL 6-10 Last Admin: 02/21/18 07:48 Dose: 15 mg Pantoprazole Sodium (Protonix -) 40 mg PO DAILY [facility] Last Admin: 02/20/18 09:38 Dose: 40 mg Polyethylene Glycol (Miralax (For Daily Use) -) 17 gm PO DAILY [facility] Last Admin: 02/20/18 09:37 Dose: Not Given Ranolazine (Ranexa -) 500 mg PO BID [facility] Last Admin: 02/20/18 22:26 Dose: 500 mg - Objective Vital Signs: Vital Signs Temperature 97.5 F L 02/21/18 06:00 Pulse Rate 75 02/21/18 06:00 Respiratory Rate 20 02/21/18 06:00 Blood Pressure 120/62 02/21/18 06:00 O2 Sat by Pulse Oximetry (%) 97 02/20/18 20:27 Constitutional: Yes: Well Nourished, No Distress, Calm Eyes: Yes: WNL, Conjunctiva Clear, EOM Intact HENT: Yes: WNL, Atraumatic, Normocephalic Neck: Yes: WNL, Supple, Trachea Midline Cardiovascular: Yes: WNL, Regular Rate and Rhythm Respiratory: Yes: WNL, Regular, CTA Bilaterally Labs: CBC, BMP 02/20/18 05:40 02/20/18 05:40 INR, PTT INR 1.04 (0.83-1.09) 02/13/18 05:30 Problem List - Problems (1) Chest pain Assessment/Plan: Cardiology input noted, ranexa added. 2D echo results reviewed. Continue ASA/beta andrea/ACEi/statin. patient to be transferred for angiogram Code(s): R07.9 - CHEST PAIN, UNSPECIFIED (2) H/O deep venous thrombosis Assessment/Plan: patient is on apixiban Code(s): Z86.718 - PERSONAL HISTORY OF OTHER VENOUS THROMBOSIS AND EMBOLISM (3) Hematochezia Assessment/Plan: He also complains of 1 month history of Hematochezia without abdominal discomfort, nausea, or vomiting s/p EGD/colonoscpy with internal haemorrhoids otherwise no bleed or concerns. Follow up pathology. Discussed with cardiology/GI, resume AC. Lovenox BID for now as plan for cath this week Code(s): K92.1 - MELENA (4) History of pulmonary embolism Code(s): Z86.711 - PERSONAL HISTORY OF PULMONARY EMBOLISM (5) Hyperlipidemia Code(s): E78.5 - HYPERLIPIDEMIA, UNSPECIFIED Qualifiers: Hyperlipidemia type: pure hypercholesterolemia Qualified Code(s): E78.00 - Pure hypercholesterolemia, unspecified; E78.0 - Pure hypercholesterolemia (6) Hypothyroidism Code(s): E03.9 - HYPOTHYROIDISM, UNSPECIFIED Qualifiers: Hypothyroidism type: unspecified Qualified Code(s): E03.9 - Hypothyroidism , unspecified (7) Chronic hepatitis Assessment/Plan: newly diagnosed Hep C infection Code(s): K73.9 - CHRONIC HEPATITIS, UNSPECIFIED (8) Pancytopenia Assessment/Plan: LFTs mildly worse, new Hep C diagnosis, patient informed of Hepatitis C diagnosis, GI follow up. Trend LFTs fr now. HIV screen neg comprehensive Abdo US with doppler noted. Code(s): D61.818 - OTHER PANCYTOPENIA Assessment/Plan [id number] full dose lovenox Interval labs Dispo plan for transfer for cardiac cath this week . Plan discussed with patient in detail, all questions answered.
[2018-02-21] MEDS: CLOPIDOGREL BISULFATE 75 MG TABLET (FP) PO SCH (10:05)
[2018-02-21] MEDS: PANTOPRAZOLE 40 MG TABLET (FP) PO SCH (10:05)
[2018-02-21] MEDS: ISOSORBIDE MONONITRATE 60 MG TAB.SR.24H (FP) PO SCH (10:05)
[2018-02-21] MEDS: LEVOTHYROXINE NA 50 MCG TABLET (FP) PO SCH (10:05)
[2018-02-21] MEDS: ASPIRIN 81 MG CHEWABLE TABLETS PO SCH (10:05)
[2018-02-21] MEDS: LIDOCAINE 5% TOPICAL PATCH TP SCH ×2 (10:05→21:52)
[2018-02-21] MEDS: amLODIPine BESYLATE 5 MG TABLET (FP) PO SCH (10:05)
[2018-02-21] MEDS: LISINOPRIL 10 MG TABLET (FP) PO SCH (10:05)
[2018-02-21] MEDS: RANOLAZINE E.R. 500 MG TABLET (FP) PO SCH ×2 (10:05→22:00)
[2018-02-21] MEDS: ATORVASTATIN CA 80 MG TABLET (FP) PO SCH (10:05)
[2018-02-21] MEDS: ENOXAPARIN NA (PORCINE) 120 MG/0.8 ML DISP.SYRIN SQ SCH ×2 (10:05→22:00)
[2018-02-21] MEDS: POLYETHYLENE GLYCOL 3350 119 GM BTL PO SCH (10:06)
--- NOTE | 2018-02-21 14:07 | PN ---
Progress Note, Physician History of Present Illness: No further episodes of exertional angina, colonoscopy showed internal hemorrhoids, EGD did not show varices or PUD, may proceed with cath on Tuesday given holiday and clinical stability, patient agrees with plan. - Current Medication List Current Medications: Active Medications Amlodipine Besylate (Norvasc -) 5 mg PO DAILY [facility] Last Admin: 02/21/18 10:05 Dose: 5 mg Aspirin (Asa -) 81 mg PO DAILY [facility] Last Admin: 02/21/18 10:05 Dose: 81 mg Atorvastatin Calcium (Lipitor -) 80 mg PO DAILY [facility] Last Admin: 02/21/18 10:05 Dose: 80 mg Clopidogrel Bisulfate (Plavix -) 75 mg PO DAILY [facility] Last Admin: 02/21/18 10:05 Dose: 75 mg Enoxaparin Sodium (Lovenox -) 120 mg SQ BID [facility] Last Admin: 02/21/18 10:05 Dose: 120 mg Isosorbide Mononitrate (Imdur -) 60 mg PO DAILY [facility] Last Admin: 02/21/18 10:05 Dose: 60 mg Levothyroxine Sodium (Synthroid -) 50 mcg PO DAILY [facility] Last Admin: 02/21/18 10:05 Dose: 50 mcg Lidocaine (Lidoderm Patch -) 1 patch TP BID [facility] Last Admin: 02/21/18 10:05 Dose: Not Given Lisinopril (Prinivil) 10 mg PO DAILY [facility] Last Admin: 02/21/18 10:05 Dose: 10 mg Metoprolol Succinate (Toprol Xl -) 100 mg PO BID [facility] Last Admin: 02/21/18 10:05 Dose: 100 mg Nitroglycerin (Nitrostat -) 0.4 mg SL PRN PRN PRN Reason: FOR CHEST PAIN Oxycodone HCl (Roxicodone -) 15 mg PO Q4H PRN PRN Reason: PAIN LEVEL 6-10 Last Admin: 02/21/18 11:56 Dose: 15 mg Pantoprazole Sodium (Protonix -) 40 mg PO DAILY [facility] Last Admin: 02/21/18 10:05 Dose: 40 mg Polyethylene Glycol (Miralax (For Daily Use) -) 17 gm PO DAILY [facility] Last Admin: 02/21/18 10:06 Dose: Not Given Ranolazine (Ranexa -) 500 mg PO BID [facility] Last Admin: 02/21/18 10:05 Dose: 500 mg - Objective Vital Signs: Vital Signs Temperature 98.4 F 02/21/18 10:00 Pulse Rate 102 H 02/21/18 10:00 Respiratory Rate 20 02/21/18 10:00 Blood Pressure 139/77 02/21/18 10:00 O2 Sat by Pulse Oximetry (%) 98 02/21/18 09:00 Constitutional: Yes: No Distress, Calm Neck: Yes: Supple Cardiovascular: Yes: Regular Rate and Rhythm Respiratory: Yes: Regular, CTA Bilaterally Gastrointestinal: Yes: Normal Bowel Sounds, Soft Edema: No Labs: CBC, BMP 02/20/18 05:40 02/20/18 05:40 INR, PTT INR 1.04 (0.83-1.09) 02/13/18 05:30 - ....Imaging EKG: Report Reviewed (Tele: NSR) Problem List - Problems (1) Progressive angina Code(s): I20.0 - UNSTABLE ANGINA (2) History of pulmonary embolism Code(s): Z86.711 - PERSONAL HISTORY OF PULMONARY EMBOLISM (3) H/O deep venous thrombosis Code(s): Z86.718 - PERSONAL HISTORY OF OTHER VENOUS THROMBOSIS AND EMBOLISM (5) Chronic anticoagulation Code(s): Z79.01 - PEEL OV[employer]ENDER (CURRENT) USE OF ANTICOAGULANTS (6) Hematochezia Code(s): K92.1 - MELENA (7) Family history of malignant neoplasm of colon in first degree relative diagnosed when younger than 60 years of age Code(s): Z80.0 - FAMILY HISTORY OF MALIGNANT NEOPLASM OF DIGESTIVE ORGANS (8) Family history of premature coronary artery disease Code(s): Z82.49 - FAMILY HX OF ISCHEM HEART DIS AND OTH DIS OF [facility] S[facility] (9) Hypothyroidism Code(s): E03.9 - HYPOTHYROIDISM, UNSPECIFIED Qualifiers: Hypothyroidism type: unspecified Qualified Code(s): E03.9 - Hypothyroidism , unspecified (10) Hyperlipidemia Code(s): E78.5 - HYPERLIPIDEMIA, UNSPECIFIED Qualifiers: Hyperlipidemia type: pure hypercholesterolemia Qualified Code(s): E78.00 - Pure hypercholesterolemia, unspecified; E78.0 - Pure hypercholesterolemia (11) Internal hemorrhoids Code(s): K64.8 - OTHER HEMORRHOIDS Assessment/Plan 11/29/2017 Echo: Mild cLVH, normal LVEF 55-60%, normal diastolic fxn, mod LAE, normal RV size and fxn 11/30/2017 Stress echo: Anteroseptal ischemia 02/13/2018 Echo: Normal RV and LV size and fxn LVEF 55-60%, normal biatrial sizes, mildly dilated ao 4.0 cm 1. CAD with progressive angina and LAD ischemia via Nuclear MPI and stress echocardiography 2. History of DVT/recurrent PE currently on DOAC/Eliquis and s/p IVC filter 3. Diastolic dysfunction 4. Family history of premature CAD 5. Hematochezia with family h/o colon CA referable to internal hemorrhoids 6. Hypothyroidism 7. T11 compression fracture with need for spinal fusion 8. Pancytopenua PLAN: 1. Previous cardiology studies and medical records reviewed, GI evaluation appreciated 2. Continue Ranexa 500 mg BID, Norvasc 5 mg QD, Lovenox 120 bid, ASA 81 mg QD, Lipitor 80 mg QD, Imdur 60 mg QD, Toprol XL 100 mg BID, Lisinopril 10 mg QD, and Plavix 75 qd 3. Cardiac catheterization tentatively Wed. Maintain on full-dose lovenox pending case.
--- NOTE | 2018-02-21 21:35 | PN ---
Progress Note (short form) - Note Progress Note: Patient seen and examined Feels well AFVSS Cor: RSR, No murmurs, No gallops Lungs: Clear to P&A Abd: Soft, Normal bowel sounds, No organomegaly Ext:No significant edema Labs/Meds reviewed A/p 47 y/o patient with h/o unprovoked DVT 2011, s/p knee surgery. Also with h/o recurrent unprovoke PE, last episode earlier this year while on coumadin per patient Was then switched to eliquis 5 mg bid Now on lovenox 120mg SC bid On aspirin/plavix Had been on usp trestosterone several yres. prior Also extensive fmaily h/o cancer Would consider CT c/a/p --f/u lung nodule, r/o occult malignancy given recurrent VTE Reports neg. thrombophilia w/u Prostrate cancer screening EGD--nl. colonoscopy --hemorrhoids genetic risk evaluation as out patient pancytopenia-- ? hep. C/ liver disease? fattyliver/ mildsplenomegaly TSH/B12/folate/LDH--nl flow/FISH/cytogenetics pending Ongoing cardiac w/u contact nos. given for follow up
[2018-02-22] MEDS: oxyCODONE HCL 5 MG TABLET PO PRN ×3 (00:17→09:05)
[2018-02-22 06:34] VITALS: BP 118/76; PULSE 84; TEMP 97.9
--- NOTE | 2018-02-22 08:25 | DS ---
Physical Exam: SUBJECTIVE: Patient seen and examined this AM. He currently has no complaints and is ready/stable for transfer for cath. He says the transfer is currently planned for 9am. OBJECTIVE: Vital Signs Period Temp Pulse Resp BP Sys/Franklin Pulse Ox Last 24 Hr 97.9 F-98.6 F 68-109 18-20 117-139/55-86 97-98 PHYSICAL EXAM GENERAL: A&O, no acute distress HEAD: Normocephalic, atraumatic. EYES: PERRL, no scleral icterus EARS, NOSE, THROAT: oropharynx clear without exudates. Moist mucous membranes. NECK: supple without lymphadenopathy LUNGS: CTA b/l, no crackles or wheezes HEART: Regular rate and rhythm, normal S1 and S2 without murmur ABDOMEN: Soft, nontender to palpation, normoactive bowel sounds EXTREMITIES: 2+ pulses, warm, well-perfused. No peripheral edema. NEUROLOGICAL: Cranial nerves II-XII grossly intact. Normal speech. LABS HOSPITAL COURSE: Date of Admission:02/13/18 Date of Discharge: 02/22/18 HPI on admission: Pt is a 47 y/o gentleman with a significant past medical history of HTN, HLD, positive stress test [facility] November 2017, hypothyroidism, DVT ( 2011 s/p R Knee surgery), Pulmonary embolism (2014), Pulmonary embolism Mar 2017 (started on Coumadin), another PE Oct 2017 (Coumadin switched to eliquis), IVC filter placement who presented to [facility] c/o left sided chest pain that begin earlier today. Per pt, he was walking up 5 flights of stairs when he suddenly began to experience a tight, squeezing sensation on the left side of his chest. Pain is described as a 6/10 in severity. Associated diaphoresis, no palpitations, nausea or vomiting. Pt endorses 6 months of intermittent exertional chest pain which has progressed to nearly daily and sometimes at rest. States he uses nitroglycerin when he experiences his chest pain which successfully mitigates his pain. Furthermore, pt also endorses orthopnea and states that he feel like he is " under water" and uses 2 and 1/2 pillows to sleep. Hospital Course: He was admitted and seen by cardiology who recommended transfer for a cardiac cath, however with his recent history of bloody stools, he required a GI workup prior especially with his extensive family history of cancers. He underwent colonoscopy which did not reveal any concerning findings. His liver enzymes were mildly elevated and a he was tested for Hep C which was positive. He underwent EGD to rule evaluate for varices/PUD which was normal. Unfortunately he was not able to be transferred for a few days due to the long Holiday weekend , but was then transferred for cardiac cath at [place]. Minutes to complete discharge: 35 Discharge Summary Reason For Visit: CHEST PAIN Current Active Problems Chest pain (Acute) Chronic anticoagulation (Acute) Chronic hepatitis (Acute) Family history of malignant neoplasm of colon in first degree relative diagnosed when younger than 60 years of age (Acute) Family history of premature coronary artery disease (Acute) H/O deep venous thrombosis (Acute) Hematochezia (Acute) History of pulmonary embolism (Acute) Hyperlipidemia (Acute) Hypothyroidism (Acute) Internal hemorrhoids (Acute) Pancytopenia (Acute) Progressive angina (Acute) S/P IVC filter (Acute) Condition: Stable - Instructions Diet, Activity, Other Instructions: You were admitted to the hospital with chest pain. You were seen by cardiology who recommended you have a catheterization of your heart with possible stenting vs bypass. It was recommended that you be transferred for the cath, however with your history of recent bloody bowel movements, you were seen by GI who recommended a Colonoscopy and Endoscopy prior to the cardiac cath, which did not reveal anything concerning. Please continue all current managament. NPO after breakfast for cath. Referrals: Vinod Degroot MD [Staff Physician] - Disposition: TRANSFER ACUTE CARE/OTHER HOSP - Home Medications Comprehensive Discharge Medication List: Ambulatory Orders Amlodipine Besylate 5 mg PO DAILY 02/12/18 Aspirin [ASA -] 81 mg PO DAILY 02/12/18 Atorvastatin Calcium 80 mg PO DAILY 02/12/18 Isosorbide Mononitrate [Isosorbide Mononitrate ER] 60 mg PO DAILY 02/12/18 Levothyroxine [Synthroid -] 50 mcg PO DAILY 02/12/18 Lidocaine 5% Patch [Lidoderm -] 1 patch TP BID 02/12/18 Lisinopril 10 mg PO DAILY 02/12/18 Nitroglycerin Sublingual [Nitrostat -] 0.4 mg SL PRN PRN 02/12/18 Clopidogrel Bisulfate [Plavix -] 75 mg PO DAILY tablet 02/22/18 Enoxaparin [Lovenox -] 120 mg SQ BID disp.syrin 02/22/18 Pantoprazole Sodium [Protonix -] 40 mg PO DAILY tablet.ec 02/22/18 Polyethylene Glycol 3350 [Miralax 119 gm Btl -] 17 gm PO DAILY bottle 02/22/18 Ranolazine [Ranexa -] 500 mg PO BID tab 02/22/18 oxyCODONE HCL [Roxicodone -] 15 mg PO Q4H PRN tablet MDD 90 02/22/18 This patient is new to me today: No Emergency Visit: Yes ED Registration Date: 02/13/18 Care time: The patient presented to the Emergency Department on the above date and was hospitalized for further evaluation of their emergent condition. Critical Care patient: No - Discharge Referral Referred to [facility] Med P.[facility].: No
[2018-02-22] MEDS: ATORVASTATIN CA 80 MG TABLET (FP) PO SCH (09:05)
[2018-02-22] MEDS: LISINOPRIL 10 MG TABLET (FP) PO SCH (09:05)
[2018-02-22] MEDS: CLOPIDOGREL BISULFATE 75 MG TABLET (FP) PO SCH (09:05)
[2018-02-22] MEDS: RANOLAZINE E.R. 500 MG TABLET (FP) PO SCH (09:05)
[2018-02-22] MEDS: PANTOPRAZOLE 40 MG TABLET (FP) PO SCH (09:05)
[2018-02-22] MEDS: ASPIRIN 81 MG CHEWABLE TABLETS PO SCH (09:05)
[2018-02-22] MEDS: ENOXAPARIN NA (PORCINE) 120 MG/0.8 ML DISP.SYRIN SQ SCH (09:05)
[2018-02-22] MEDS: ISOSORBIDE MONONITRATE 60 MG TAB.SR.24H (FP) PO SCH (09:05)
[2018-02-22] MEDS: amLODIPine BESYLATE 5 MG TABLET (FP) PO SCH (09:05)
[2018-02-22] MEDS: LEVOTHYROXINE NA 50 MCG TABLET (FP) PO SCH (09:05)
[2018-02-22] MEDS: POLYETHYLENE GLYCOL 3350 119 GM BTL PO SCH (09:08)
[2018-02-22] MEDS: LIDOCAINE 5% TOPICAL PATCH TP SCH (09:08)
--- NOTE | 2018-02-22 10:30 | PN ---
Progress Note, Physician History of Present Illness: LHC at [facility] showed nonobstructive CAD with normal LV fxn, normal LVEDP, no aortic stenosis. - Objective Vital Signs: Vital Signs Temperature 97.9 F 02/22/18 06:00 Pulse Rate 84 02/22/18 06:00 Respiratory Rate 19 02/22/18 09:00 Blood Pressure 118/76 02/22/18 06:00 O2 Sat by Pulse Oximetry (%) 99 02/22/18 09:00 Constitutional: Yes: No Distress, Calm Neck: Yes: Supple Cardiovascular: Yes: Regular Rate and Rhythm Respiratory: Yes: Regular, CTA Bilaterally Gastrointestinal: Yes: Normal Bowel Sounds, Soft Edema: No (Lt groin w/o hematoma) Labs: CBC, BMP 02/20/18 05:40 02/20/18 05:40 INR, PTT INR 1.04 (0.83-1.09) 02/13/18 05:30 Problem List - Problems (1) Progressive angina Code(s): I20.0 - UNSTABLE ANGINA (2) History of pulmonary embolism Code(s): Z86.711 - PERSONAL HISTORY OF PULMONARY EMBOLISM (3) H/O deep venous thrombosis Code(s): Z86.718 - PERSONAL HISTORY OF OTHER VENOUS THROMBOSIS AND EMBOLISM (5) Chronic anticoagulation Code(s): Z79.01 - USP (CURRENT) USE OF ANTICOAGULANTS (6) Hematochezia Code(s): K92.1 - MELENA (7) Family history of malignant neoplasm of colon in first degree relative diagnosed when younger than 60 years of age Code(s): Z80.0 - FAMILY HISTORY OF MALIGNANT NEOPLASM OF DIGESTIVE ORGANS (8) Family history of premature coronary artery disease Code(s): Z82.49 - FAMILY HX OF ISCHEM HEART DIS AND OTH DIS OF [facility] SYS (9) Hypothyroidism Code(s): E03.9 - HYPOTHYROIDISM, UNSPECIFIED Qualifiers: Hypothyroidism type: unspecified Qualified Code(s): E03.9 - Hypothyroidism , unspecified (10) Hyperlipidemia Code(s): E78.5 - HYPERLIPIDEMIA, UNSPECIFIED Qualifiers: Hyperlipidemia type: pure hypercholesterolemia Qualified Code(s): E78.00 - Pure hypercholesterolemia, unspecified; E78.0 - Pure hypercholesterolemia (11) Internal hemorrhoids Code(s): K64.8 - OTHER HEMORRHOIDS Assessment/Plan 11/29/2017 Echo: Mild cLVH, normal LVEF 55-60%, normal diastolic fxn, mod LAE, normal RV size and fxn 11/30/2017 Stress echo: Anteroseptal ischemia 02/13/2018 Echo: Normal RV and LV size and fxn LVEF 55-60%, normal biatrial sizes, mildly dilated ao 4.0 cm 1. Non-obstructivce CAD c/w microvascular angina 2. History of DVT/recurrent PE currently on DOAC/Eliquis and s/p IVC filter 3. Diastolic dysfunction 4. Family history of premature CAD 5. Hematochezia with family h/o colon CA referable to internal hemorrhoids 6. Hypothyroidism 7. T11 compression fracture with need for spinal fusion with chronic pain syndrome 8. Pancytopenua PLAN: 1. Continue Ranexa 500 mg BID, Norvasc 5 mg QD, Lipitor 80 mg QD, Imdur 60 mg QD , Toprol XL 100 mg BID, Lisinopril 10 mg QD, resume Eliquis 5 bid, d/c ASA and Plavix 75 qd 2. F/u in office 3. Istop narcotics prescriptions noted
--- NOTE | 2018-02-22 11:07 | PN ---
Teaching Attending Note Name of Resident: Holland Godoy ATTENDING PHYSICIAN STATEMENT I saw and evaluated the patient. I reviewed the resident's note and discussed the case with the resident. I agree with the resident's findings and plan as documented. SUBJECTIVE: Patient denies chest pain. OBJECTIVE: Vital Signs Period Temp Pulse Resp BP Sys/Franklin Pulse Ox Last 24 Hr 97.9 F-98.6 F 68-109 18-20 117-131/55-86 97-99 HEART: S1S2, RRR LUNGS: Clear ABDOMEN: Obese, soft, non-tender, non-distended, normal BS EXTREMITIES: No edema ASSESSMENT AND PLAN: This is a 47 year old man with a history of HTN, hyperlipidemia, abnormal stress test, hypothyroidism, DVT, pulmonary embolism x3, IVC filter who presented to the ED with chest pain. 1. CAD with unstable angina - Prior eval revealed LAD ischemia - Continue current treatment - Transfer to [facility] for cardiac cath 2. Hematochezia - EGD, colonoscopy unremarkable 3. History of DVT, recurrent PEs - Has IVC filter - Continue Lovenox (Eliquis held for cath) 4. HTN - Continue Lisinopril, Toprol XL, Norvasc 5. Hypothyroidism - Continue Synthroid 6. Hyperlipidemia - Continue Lipitor 7. Hepatic transaminitis 8. Hepatitis C, newly diagnosed - Outpatient GI follow up 9. Pancytopenia - Work up pending - Outpatient heme follow up
== END 2018-02-22 10:21 | disposition short-term general hospital (02) | DRG 198 ==
LOC: JER 14:32 → JERBED 17:39 → J4W 20:18 → OBSVTOIN 02-13 13:16 → J4W 02-14 17:50
PROVIDERS: ATTEND Internal Medicine
PROC: 0DJD8ZZ Inspection of Lower Intestinal Tract, Via Natural or Artificial Opening Endoscopic (ICD-10-PCS; principal; 2018-02-15 09:00)
PROC: 0DJ08ZZ Inspection of Upper Intestinal Tract, Via Natural or Artificial Opening Endoscopic (ICD-10-PCS; 2018-02-17)
DX: I25.110 Atherosclerotic heart disease of native coronary artery with unstable angina pectoris (principal); Z86.711 Personal history of pulmonary embolism; Z86.718 Personal history of other venous thrombosis and embolism; Z79.01 Long term (current) use of anticoagulants; Z80.0 Family history of malignant neoplasm of digestive organs; E03.9 Hypothyroidism, unspecified; E78.5 Hyperlipidemia, unspecified; K92.1 Melena; B19.20 Unspecified viral hepatitis C without hepatic coma; I10 Essential (primary) hypertension; R74.0 Nonspecific elevation of levels of transaminase and lactic acid dehydrogenase [LDH]; J44.9 Chronic obstructive pulmonary disease, unspecified; R16.1 Splenomegaly, not elsewhere classified; M48.54XA Collapsed vertebra, not elsewhere classified, thoracic region, initial encounter for fracture; K76.0 Fatty (change of) liver, not elsewhere classified; D61.818 Other pancytopenia; D72.819 Decreased white blood cell count, unspecified; D69.6 Thrombocytopenia, unspecified; K64.8 Other hemorrhoids
CPT/HCPCS: 36415; 71045-TC-FY; 76705-TC; 80048; 80053; 80061; 80074; 80076; 81003; 82550; 82553; 82607; 82728; 82746; 83540; 83550; 83615; 83721; 83735; 83880; 84100; 84443; 84484; 85025; 85027; 85610; 85730; 86850; 86900; 86901; 87389; 87522; 93005; 93010; 93306-TC; 99283-25; G0378

== ENCOUNTER 2018-02-23 14:34 | Emergency (ER) | payer OTHER ==
[2018-02-23 14:40] VITALS: BP 152/94; PULSE 119; TEMP 98.6; BMI 33.1
--- NOTE | 2018-02-23 14:50 | PDOC ---
History of Present Illness - General Chief Complaint: Pain, Acute Stated Complaint: LEG PAIN Time Seen by Provider: 02/23/18 14:40 History Source: Patient Exam Limitations: No Limitations - History of Present Illness Initial Comments: 02/23/18 14:46 47 yr male history of right knee ACL tear states he stepped off curb and felt " a pop" to the right knee. Pt did not fall. This happened about 1 hour ago. Occurred: reports: this afternoon Severity: Yes: mild Lower Extremity Pain Location: right: knee Method of Injury: Yes: twisted Past History - Past Medical History Allergies/Adverse Reactions: Allergies Allergy/AdvReac Type Severity Reaction Status Date / Time Penicillins Allergy Verified 02/23/18 14:37 Home Medications: Ambulatory Orders Amlodipine Besylate 5 mg PO DAILY 02/12/18 Aspirin [ASA -] 81 mg PO DAILY 02/12/18 Atorvastatin Calcium 80 mg PO DAILY 02/12/18 Isosorbide Mononitrate [Isosorbide Mononitrate ER] 60 mg PO DAILY 02/12/18 Levothyroxine [Synthroid -] 50 mcg PO DAILY 02/12/18 Lidocaine 5% Patch [Lidoderm -] 1 patch TP BID 02/12/18 Lisinopril 10 mg PO DAILY 02/12/18 Nitroglycerin Sublingual [Nitrostat -] 0.4 mg SL PRN PRN 02/12/18 Clopidogrel Bisulfate [Plavix -] 75 mg PO DAILY tablet 02/22/18 Enoxaparin [Lovenox -] 120 mg SQ BID disp.syrin 02/22/18 Pantoprazole Sodium [Protonix -] 40 mg PO DAILY tablet.ec 02/22/18 Polyethylene Glycol 3350 [Miralax 119 gm Btl -] 17 gm PO DAILY bottle 02/22/18 Ranolazine [Ranexa -] 500 mg PO BID tab 02/22/18 oxyCODONE HCL [Roxicodone -] 15 mg PO Q4H PRN tablet MDD 90 02/22/18 Cardiac Disorders: Yes (failed stress test a few months ago) COPD: Yes HTN: Yes Hypercholesterolemia: Yes Thyroid Disease: Yes (hypothyroid) - Suicide/Smoking/Psychosocial Hx Smoking History: Never smoked Hx Alcohol Use: No Drug/Substance Use Hx: No Substance Use Type: None Hx Substance Use Treatment: No *Physical Exam - Vital Signs Last Vital Signs Temp Pulse Resp BP Pulse Ox 98.6 F 119 H 18 152/94 99 02/23/18 14:37 02/23/18 14:37 02/23/18 14:37 02/23/18 14:37 02/23/18 14:37 - Physical Exam General Appearance: Yes: Nourished, Appropriately Dressed HEENT: positive: EOMI, ALEC Extremity: positive: Normal Capillary Refill, Tender, Swelling (medially tender , mild swelling to the suprapatella area , FROM nv intact ) Integumentary: positive: Normal Color, Dry, Warm Neurologic: positive: Fully Oriented, Alert, Normal Mood/Affect, Normal Response , Motor Strength 5/5 Moderate Sedation - Procedure Monitoring Vital Signs: Procedure Monitoring Vital Signs Temperature 98.6 F 02/23/18 14:37 Pulse Rate 119 H 02/23/18 14:37 Respiratory Rate 18 02/23/18 14:37 Blood Pressure 152/94 02/23/18 14:37 O2 Sat by Pulse Oximetry (%) 99 02/23/18 14:37 Procedures - Splinting Pre-Made Type: knee immobilizer (right) ED Treatment Course - RADIOLOGY Radiology Studies Ordered: Category Date Time Status KNEE 3 POS-RIGHT [RAD] Stat Radiology 02/23/18 14:40 Ordered Medical Decision Making - Medical Decision Making 02/23/18 14:47 cc: twisted right knee will get xray mild swelling noted knee immobilizer and follow up with ortho 02/24/18 11:11 xray is negative for fracture or dislocation pt was placed in immobilizer and given RICE instructions, follow up with ortho and employee health for clearance. Pt agrees with plan, dc home steady gait. *DC/Admit/Observation/Transfer Diagnosis at time of Disposition: Right knee sprain Qualifiers: Encounter type: initial encounter Involved ligament of knee: unspecified ligament Qualified Code(s): S83.91XA - Sprain of unspecified site of right knee , initial encounter - Discharge Dispostion Disposition: HOME Condition at time of disposition: Good - Referrals Referrals: Roger Mitchell DO [Staff Physician] - - Patient Instructions Additional Instructions: elevate and apply ice every 2hrs for 20 minutes while awake for the next 2 days take tylenol for pain use the immobilizer at all times except to bathe and sleep if comfortable with it, or remove follow with the orthopedist next week to be cleared for work or with employee health - Post Discharge Activity Forms/Work/School Notes: Back to Work
== END 2018-02-23 15:03 | disposition home or self-care (01) ==
LOC: JERFT 14:34
DX: S83.8X1A Sprain of other specified parts of right knee, initial encounter (principal); X50.1XXA Overexertion from prolonged static or awkward postures, initial encounter; Y93.89 Activity, other specified; Y92.480 Sidewalk as the place of occurrence of the external cause; Y99.8 Other external cause status
CPT/HCPCS: 73562-TC-RT-FY; 99281-25

== ENCOUNTER 2018-02-24 10:54 | Observation (INO) | payer OTHER ==
--- NOTE | 2018-02-24 11:11 | PDOC ---
Attending Attestation - Resident Resident Name: YareilsDavid - ED Attending Attestation I have performed the following: I have examined & evaluated the patient, The case was reviewed & discussed with the resident, I agree w/resident's findings & plan, Exceptions are as noted - HPI HPI: 02/24/18 11:15 Mr Patel is a 47 yo M who presents to the ER s/p syncopal episode, with head trauma He has a h/o HTN, HLD, positive stress test [facility] November 2017, hypothyroidism, DVT (2011 s/p R Knee surgery), Pulmonary embolism (2014), Pulmonary embolism Mar 2017 (started on Coumadin), another PE Oct 2017 ( Coumadin switched to eliquis), s/p IVC filter placement. S/p recent admission for left sided chest pain, orthopnea. Pt s/p GI work up - colonoscopy not concerning, EGD negative for varices/PUD, Hep C (+). Pt transferred for cardiac cathetherization Was sent home and returned to the ER the following day due to fall with knee injury Pt returns today s/p syncopal episode 02/24/18 11:22 - Physicial Exam PE: 02/25/18 10:34 GENERAL: Pleasant. Sitting up; awake, alert, and fully oriented HEAD: +bruising R frontal region, diffusely TTP. no bleeding EYES: PERRLA, EOMI HEENT: Ears normal, nares patent, oropharynx clear without exudates. Moist mucous membranes. NECK: Normal range of motion, supple, no midline tenderness to palpation LUNGS: Breath sounds equal, clear to auscultation bilaterally. No wheezes, and no crackles. HEART: +sinus tach. without murmur, rub or gallop. ABDOMEN: Soft, firm, nontender, not distended UPPER EXTREMITIES: +decreased ROM R shoulder (known rotator cuff tear) LOWER EXTREMITIES: 2+ pt pulses, warm, well-perfused. No calf tenderness. trace pitting edema NEUROLOGICAL: Cranial nerves II-XII intact. Normal speech. - Medical Decision Making 02/24/18 11:26 EKG : Sinus rhythm rate of 101 bpm, axis nml, intervals abn, no st elevations or depressions, t waves upright When laying down, hr 70s When pt stands HR 140s Will Keep on ekg monitor Will check labs Will do CXR Will need to re admit 02/24/18 13:06 Laboratory Tests 02/24/18 02/24/18 02/24/18 11:50 11:50 11:50 WBC 5.9 Hgb 14.4 Hct 41.9 D Plt Count 156 D INR 1.05 BUN 12 Creatinine 1.0 Creatine Kinase 156 Troponin I < 0.02 CT head - no acute intracranial hemorrhage Will have to re admit this patient Syncope most likely vasovagal (when pt stands, heart rate increase) Will hydrate Will admit to hospitalist service Clinical impression: syncope, repeat presentation *DC/Admit/Observation/Transfer Diagnosis at time of Disposition: Syncope and collapse - Discharge Dispostion Condition at time of disposition: Fair Decision to Admit order: Yes - Referrals - Patient Instructions - Post Discharge Activity
[2018-02-24 12:04] LABS: BASO % 0.2 % (0-2.0); EOS % 0.9 % (0-4.5); HEMATOCRIT 41.9 % (35.4-49); HEMOGLOBIN 14.4 GM/dL (11.7-16.9); LYMPH % 10.8 % (8-40); MCH 28.1 pg (25.7-33.7); MCHC 34.4 g/dl (32.0-35.9); MEAN CELL VOLUME 81.6 fl (80-96); NEUT % 83.1 % (42.8-82.8); PLATELET COUNT 156 K/MM3 (134-434); RBC 5.14 M/mm3 (4.00-5.60); RDW 16.8 % (11.9-15.9); WHITE BLOOD COUNT 5.9 K/mm3 (4.0-10.0)
[2018-02-24 12:17] LABS: INR 1.05 (0.83-1.09); PROTHROMBIN TIME (PATIENT) 12.4 SEC (9.7-13.0)
[2018-02-24] MEDS ORDERED: oxyCODONE HCL 5 MG TABLET PO ONE ×2 (12:18→12:23)
--- NOTE | 2018-02-24 12:18 | PDOC ---
History of Present Illness - General Chief Complaint: Syncope/Near Syncope Stated Complaint: Syncope/Near Syncope Time Seen by Provider: 02/24/18 11:09 - History of Present Illness Initial Comments: 02/24/18 13:29 47m with pmh of HTN, HLD, positive stress test [facility] November 2017, hypothyroidism, DVT (2011 s/p R Knee surgery), Pulmonary embolism (2014), Pulmonary embolism Mar 2017 (started on Coumadin), another PE Oct 2017 ( Coumadin switched to eliquis), s/p IVC filter placement. who presents to the ER s/p syncopal episode, with head trauma. He states that he was in an elevator when he felt a weird palpitation sensation in his chest before losing consciouness. He estimates being unconscious for a minute. S/p recent admission for left sided chest pain, orthopnea. Pt s/p GI work up - colonoscopy not concerning, EGD negative for varices/PUD, Hep C (+). Pt transferred for cardiac catheterization to [facility] and discharged the next morning. That day he returned ER due to fall with knee injury. During previous admission he was also found to be neutropenic and thrombocytopenic, seen by Dr. Valentin for possible malignancy that would explain coagulopathy and labs but never had a CT scan done or Bone marrow cell count. Patient was evaluated for Factor 5 Leiden but was negative. 02/24/18 13:37 Patient is also complaining of exacerbated shoulder pain from known rotator cuff , that he hit when syncopizing today. Beta Maday given by EMS (Core Measure): No Beta Maday taken at Home (Core Measure): No Beta Maday Contraindications (Core Measure): Yes: Not Prescribed Past History - Past Medical History Allergies/Adverse Reactions: Allergies Allergy/AdvReac Type Severity Reaction Status Date / Time Penicillins Allergy Verified 02/24/18 11:27 Home Medications: Ambulatory Orders Amlodipine Besylate 5 mg PO DAILY 02/12/18 Aspirin [ASA -] 81 mg PO DAILY 02/12/18 Atorvastatin Calcium 80 mg PO DAILY 02/12/18 Isosorbide Mononitrate [Isosorbide Mononitrate ER] 60 mg PO DAILY 02/12/18 Levothyroxine [Synthroid -] 50 mcg PO DAILY 02/12/18 Lidocaine 5% Patch [Lidoderm -] 1 patch TP BID 02/12/18 Lisinopril 10 mg PO DAILY 02/12/18 Nitroglycerin Sublingual [Nitrostat -] 0.4 mg SL PRN PRN 02/12/18 Clopidogrel Bisulfate [Plavix -] 75 mg PO DAILY tablet 02/22/18 Enoxaparin [Lovenox -] 120 mg SQ BID disp.syrin 02/22/18 Pantoprazole Sodium [Protonix -] 40 mg PO DAILY tablet.ec 02/22/18 Polyethylene Glycol 3350 [Miralax 119 gm Btl -] 17 gm PO DAILY bottle 02/22/18 Ranolazine [Ranexa -] 500 mg PO BID tab 02/22/18 oxyCODONE HCL [Roxicodone -] 15 mg PO Q4H PRN tablet MDD 90 02/22/18 Cardiac Disorders: Yes (failed stress test a few months ago) CVA: No COPD: Yes HTN: Yes Hypercholesterolemia: Yes Thyroid Disease: Yes (hypothyroid) - Suicide/Smoking/Psychosocial Hx Smoking History: Never smoked Have you smoked in the past 12 months: No Information on smoking cessation initiated: No Hx Alcohol Use: No Drug/Substance Use Hx: No Substance Use Type: None Hx Substance Use Treatment: No Review of Systems - Review of Systems Able to Perform ROS?: Yes Is the patient limited Syrian proficient: No Constitutional: No: Symptoms Reported HEENTM: No: Symptoms Reported Respiratory: No: Symptoms reported Cardiac (ROS): No: Symptoms Reported *Physical Exam - Vital Signs Last Vital Signs Temp Pulse Resp BP Pulse Ox 99.1 F 125 H 16 128/87 98 02/24/18 10:54 02/24/18 10:54 02/24/18 10:54 02/24/18 10:54 02/24/18 11:28 - Physical Exam General Appearance: Yes: Nourished, Appropriately Dressed. No: Apparent Distress HEENT: positive: EOMI, ALEC, Normal ENT Inspection Respiratory/Chest: positive: Lungs Clear, Normal Breath Sounds, Rapid RR. negative: Chest Tender Cardiovascular: positive: Regular Rhythm, S1, S2, Tachycardia Gastrointestinal/Abdominal: positive: Normal Bowel Sounds, Soft. negative: Tender Musculoskeletal: positive: Normal Inspection. negative: CVA Tenderness Extremity: positive: Normal Capillary Refill, Normal Inspection Integumentary: positive: Normal Color, Dry, Warm Neurologic: positive: Fully Oriented, Alert, Normal Mood/Affect, Normal Response , Motor Strength 5/5 Moderate Sedation - Procedure Monitoring Vital Signs: Procedure Monitoring Vital Signs Temperature 99.1 F 02/24/18 10:54 Pulse Rate 125 H 02/24/18 10:54 Respiratory Rate 16 02/24/18 10:54 Blood Pressure 128/87 02/24/18 10:54 O2 Sat by Pulse Oximetry (%) 98 02/24/18 11:28 ED Treatment Course - LABORATORY CBC & Chemistry Diagram: 02/24/18 11:50 02/24/18 11:50 - ADDITIONAL ORDERS Additional order review: Laboratory Results 02/24/18 02/24/18 02/24/18 11:50 11:50 11:50 PT with INR INR Sodium 143 Potassium 4.0 Chloride 109 H Carbon Dioxide 26 Anion Gap 7 L BUN 12 Creatinine 1.0 Creat Clearance w eGFR > 60 Random Glucose 128 H Calcium 9.5 Magnesium 2.2 Total Bilirubin 0.6 AST 66 H ALT 174 H Alkaline Phosphatase 68 Creatine Kinase 156 Creatine Kinase Index 0.8 CK-MB (CK-2) 1.4 Troponin I < 0.02 B-Natriuretic Peptide 62.6 Total Protein 8.8 H Albumin 4.3 Blood Type A POSITIVE Cancelled Antibody Screen Negative Cancelled 02/24/18 11:50 PT with INR 12.40 INR 1.05 Sodium Potassium Chloride Carbon Dioxide Anion Gap BUN Creatinine Creat Clearance w eGFR Random Glucose Calcium Magnesium Total Bilirubin AST ALT Alkaline Phosphatase Creatine Kinase Creatine Kinase Index CK-MB (CK-2) Troponin I B-Natriuretic Peptide Total Protein Albumin Blood Type Antibody Screen 02/24/18 11:50 RBC 5.14 MCV 81.6 MCHC 34.4 RDW 16.8 H MPV 9.0 Neutrophils % 83.1 H D Lymphocytes % 10.8 D Monocytes % 5.0 Eosinophils % 0.9 D Basophils % 0.2 - Medications Given in the ED: ED Medications Discontinued Medications Generic Name Dose Route Start Last Admin Trade Name Freq PRN Reason Stop Dose Admin Oxycodone HCl 10 mg 02/24/18 12:18 02/24/18 13:33 Roxicodone - PO 02/24/18 12:19 Not Given ONCE ONE Oxycodone HCl 15 mg 02/24/18 12:23 02/24/18 12:30 Roxicodone - PO 02/24/18 12:24 15 mg ONCE ONE Administration Medical Decision Making - Medical Decision Making 02/24/18 13:39 Arrhythmia vs [place] vs TIA vs orthostatic hypotension vs malignancy, r/o head injury. vs Patient back at baseline now although showing signs of orthostatic hypotention. Seem concerned about his shoulder pain/back pain. No change in chest xray since last time. EKG is unremarkable, normal sinus. Will repeat ekg and trops which were also negative to rule out cardiac event. This visit, patient's wbc and platelets are back to normal so we will defer the CT c/a/p to the hospitalist team. CT head negative for any active processes. 02/24/18 15:57 Will admit to telemetry observation *DC/Admit/Observation/Transfer Diagnosis at time of Disposition: Syncope and collapse - Discharge Dispostion Condition at time of disposition: Fair - Referrals - Patient Instructions - Post Discharge Activity
[2018-02-24] MEDS ORDERED: oxyCODONE HCL 5 MG TABLET ONE ×4 (12:24→22:20)
[2018-02-24 12:46] LABS: ALBUMIN 4.3 g/dl (3.4-5.0); ALK PHOS 68 U/L (45-117); ANION GAP 7 MMOL/L (8-16); BILIRUBIN,TOTAL 0.6 mg/dL (0.2-1); BLOOD UREA NITROGEN 12 mg/dL (7-18); CALCIUM 9.5 mg/dL (8.5-10.1); CHLORIDE 109 mmol/L (98-107); CO2 26 mmol/L (21-32); GLUCOSE,RANDOM 128 mg/dL (74-106); MAGNESIUM 2.2 mg/dL (1.8-2.4); N-TERMINAL BNP 62.6 pg/ml (5-125); SGOT/AST 66 U/L (15-37); SGPT/ALT 174 U/L (13-61); SODIUM 143 mmol/L (136-145); TOT PROT 8.8 g/dl (6.4-8.2)
[2018-02-24] MEDS ORDERED: oxyCODONE HCL 5 MG TABLET PO PRN ×2 (16:50→16:58)
--- NOTE | 2018-02-24 17:07 | HP ---
CHIEF COMPLAINT: syncope PCP: HISTORY OF PRESENT ILLNESS: 47 y/o M with PMH HTN, HLD, +stress test Nov 2017, hypothyroidism, DVT (2011 s/ p R knee surgery), PE (2018- on coumadin changed to eliquis), hep C, who presents to the ED c/o syncopal event that occurred this AM. As per pt, this AM when he was in his hotel (after d/c from [place] after his cardiac cath), he walked to the elevator when he started to feel as if his heart was pounding. He became lightheaded and dizzy, developed a migraine and tunnel vision when he passed out. States that he woke up surrounded by EMS and was told by a bystander that he "looked like he was having a seizure." Was brought via ambulance to [facility] ED. Currently endorses mild CURIEL from bruising s/p fall, pain in R shoulder (has known rotator cuff tear). Denies fever, chills, N/V, chest pain or pressure, or changes in urinary or bowel function. Has had good appetite recently, no recent illnesses. Of note, pt states that 4 years ago he had past episodes of lightheadedness d/t bradycardia. Was told at the time that he may need a pacemaker. Has had loop recorder x 2 ; was told no events on the last interrogation. Pt was last admitted at [facility] this month for angina and recent exertional dyspnea , as well as GIB (underwent EGD, colonoscopy WNL). He underwent cardiac cath at [place] (2 days ago) and was found to have nonobstructive dz with normal LV fnc. After his cath, he noted multiple episodes of near-syncope when sitting in bed at 2-3AM in the hospital after procedure and then episode of syncope this AM in the hotel as above. 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 Smoking: denies "never" Alcohol: "never" Drugs: "never"; however endorses using anabolic steroids in the past Family History: father- suddenly [place] age 54, brother cardiac issues passed at age 39, sister- pacemaker, other sister-ovarian [place] has had hysterectomy Allergies Penicillins Allergy (Verified 02/24/18 11:27) - anaphylaxis HOME MEDICATIONS: Home Medications Medication Instructions Recorded Amlodipine Besylate 5 mg PO DAILY 02/12/18 Aspirin [ASA -] 81 mg PO DAILY 02/12/18 Atorvastatin Calcium 80 mg PO DAILY 02/12/18 Isosorbide Mononitrate [Isosorbide 60 mg PO DAILY 02/12/18 Mononitrate ER] Levothyroxine [Synthroid -] 50 mcg PO DAILY 02/12/18 Lidocaine 5% Patch [Lidoderm -] 1 patch TP BID 02/12/18 Lisinopril 10 mg PO DAILY 02/12/18 Nitroglycerin Sublingual 0.4 mg SL PRN 02/12/18 [Nitrostat -] Clopidogrel Bisulfate [Plavix -] 75 mg PO DAILY tablet 02/22/18 Eliquis 5mg BID 02/22/18 Pantoprazole Sodium [Protonix -] 40 mg PO DAILY tablet.ec 02/22/18 Polyethylene Glycol 3350 [Miralax 17 gm PO DAILY bottle 02/22/18 119 gm Btl -] was placed on while in hospital. had used relistor 150mg qd prior Ranolazine [Ranexa -] newly started as per pt 500 mg PO BID tab 02/22/18 oxyCODONE HCL [Roxicodone -] for chronic back pain 15 mg PO Q4H PRN tablet REVIEW OF SYSTEMS CONSTITUTIONAL: Absent: fever, chills, diaphoresis, generalized weakness, malaise, loss of appetite, weight change HEENT: Absent: rhinorrhea, nasal congestion, throat pain, throat swelling, difficulty swallowing, mouth swelling, ear pain, eye pain, visual changes CARDIOVASCULAR: +lightheadedness, +syncope, palpitations Absent: chest pain, irregular heart rate, peripheral edema RESPIRATORY: Absent: cough, shortness of breath, dyspnea with exertion, orthopnea, wheezing, stridor, hemoptysis GASTROINTESTINAL: Absent: abdominal pain, abdominal distension, nausea, vomiting, diarrhea, constipation, melena, hematochezia GENITOURINARY: Absent: dysuria, frequency, urgency, hesitancy, hematuria, flank pain, genital pain MUSCULOSKELETAL: Absent: myalgia, arthralgia, joint swelling, back pain, neck pain SKIN: Absent: rash, itching, pallor HEMATOLOGIC/IMMUNOLOGIC: Absent: easy bleeding, easy bruising, lymphadenopathy, frequent infections ENDOCRINE: Absent: unexplained weight gain, unexplained weight loss, heat intolerance, cold intolerance NEUROLOGIC: +headache Absent: focal weakness or paresthesias, dizziness, unsteady gait, seizure, mental status changes, bladder or bowel incontinence PSYCHIATRIC: Absent: anxiety, depression, suicidal or homicidal ideation, hallucinations. PHYSICAL EXAMINATION Vital Signs - 24 hr 02/24/18 02/24/18 10:54 11:28 Temperature 99.1 F Pulse Rate 125 H Respiratory 16 Rate Blood Pressure 128/87 O2 Sat by Pulse 100 98 Oximetry (%) GENERAL: Pleasant. Sitting up; awake, alert, and fully oriented, in no acute distress. HEAD: +bruising R frontal region, diffusely TTP. no bleeding EYES: Pupils equal, round and reactive to light, extraocular movements intact, sclera anicteric, conjunctiva clear. EARS, NOSE, THROAT: Ears normal, nares patent, oropharynx clear without exudates. Moist mucous membranes. NECK: Normal range of motion, supple LUNGS: Breath sounds equal, clear to auscultation bilaterally. No wheezes, and no crackles. No accessory muscle use. HEART: +sinus tach. without murmur, rub or gallop. ABDOMEN: Soft, firm, nontender, not distended, normoactive bowel sounds, no guarding, no rebound UPPER EXTREMITIES: +decreased ROM R shoulder (known rotator cuff tear) LOWER EXTREMITIES: 2+ pt pulses, warm, well-perfused. No calf tenderness. trace pitting edema NEUROLOGICAL: Cranial nerves II-XII intact. Normal speech. PSYCHIATRIC: Cooperative. Good eye contact. Laboratory Results 02/24/18 02/24/18 11:50 11:50 WBC 5.9 Hgb 14.4 Hct 41.9 D Plt Count 156 D Sodium 143 Potassium 4.0 Chloride 109 H BUN 12 Creatinine 1.0 AST 66 H ALT 174 H Troponin I < 0.02 B-Natriuretic Peptide 62.[address]: without hemorrhage or other acute abnormalities EKG: sinus tach, NM 138ms, QRS 94ms, Qtc 443ms. no ST, T wave changes ASSESSMENT/PLAN: 47 y/o M with PMH HTN, HLD, +stress test Nov 2017, hypothyroidism, DVT (2011 s/ p R knee surgery), PE (2017- on coumadin changed to eliquis), hep C, who presents to the ED c/o syncopal event that occurred this AM. #Syncopal event -current differentials include vasovagal syncope had tunnel vision, heart pounding etc, PE- though more rare, has had significant hx of past PE, DVT could explain syncope, 2/2 arrhythmia, ?seizure - had hx of grand mal in past used to be on keppra, 2/2 cardio polypharmacy -check orthostatics. will give IVF if needed; for now encourage PO intake -d/w cards; will need loop recorder interrogation. need to call [employer]. less likely needs EP studies. may also be 2/2 cardio polypharmacy as pt on multiple meds (ranexa, lisinopril, asa, plavix, etc. recently) ranexa can cause lightheadedness and dizziness. -f/u chest CTA to r/o PE. no changes seen on EKG -f/u utox -tele monitoring -cardio consult: Dr. Degroot. had ECHO done on past admission and cath showed nl LV fnc -Neuro consult: Dr. Oreilly; may need EEG to determine whether sz activity. #HTN-currently controlled -cont toprol XL 100 BID however can start to decrease as per card -will reeval tomorrow BP, HR #Non-obstructive CAD c/w microvascular angina -d/w cards: c/w ranexa 500mg BID, [id number] qd , lisinopril 10mg qd, have d/c asa, plavix, nitro SL, amlodipine upon their recs -K>4, Mg>2 #hx DVT, PE -c/w eliquis 5mg BID #hep C -will need cont'd GI outpt f/u #chronic back pain - t11/t12 compression fx -c/w roxicodone 15mg q6h PRN #F/E/N encourage PO intake continue to follow lytes; especially mg, K sodium, cholesterol controlled diet #PPX DVT: on eliquis #Dispo tele obs Visit type - Emergency Visit Emergency Visit: Yes ED Registration Date: 02/24/18 Care time: The patient presented to the Emergency Department on the above date and was hospitalized for further evaluation of their emergent condition. - New Patient This patient is new to me today: Yes Date on this admission: 02/24/18 - Critical Care Critical Care patient: No
[2018-02-24] MEDS: PANTOPRAZOLE 40 MG TABLET (FP) PO SCH (17:47)
[2018-02-24] MEDS: POLYETHYLENE GLYCOL 3350 119 GM BTL PO SCH (17:47)
--- NOTE | 2018-02-24 18:12 | PN ---
Teaching Attending Note Name of Resident: Xochilt Mark ATTENDING PHYSICIAN STATEMENT I saw and evaluated the patient. I reviewed the resident's note and discussed the case with the resident. I agree with the resident's findings and plan as documented. CC: LOC He is a 47 Y/O M W hx of multiple DVT and PE on eliquies also has SVF.with anginal CP and non obstructive CAD on cath last week, HX of palpitation and Syncope in the past,P/W an episode of LOC.He states that he was in his [facility] this morning, woke up and cleened up and ater 10 minutes of being out of bed while he had an episode of fluttering in his chest, followed by lightheadedness and LOC which caused him to have a trauma to the frontal area of his head. He states that a witnessed told him that the episode lasted for couple of minutes and he remembers the EMS being around and nothign in between, witnessed had told him he thought he was seizing but unclear if he had shaking movements but for sure did not have tongue biting or losing bowel and bladder control. He states that He is on metoprolol 100 mg po bid and states that he had taken the morning dose Also states that has been adherent to his eliques. States that has been having good po intake During the interview while sitting he is tachycardic with no complaints, no change in HR with change in position and he is not orthosthatic. PhEX: Last Vital Signs Temp Pulse Resp BP Pulse Ox 99.1 F 125 H 16 128/87 98 02/24/18 10:54 02/24/18 10:54 02/24/18 10:54 02/24/18 10:54 02/24/18 11:28 Has a bruis on the frontal area of his head MMM In no distress CVS:S1S2 CTAB Abd:bs+ NT/ND Vascular: Left radial and ulnar are decreased which he states is chronic due to the trauma he have had to the arm. Labs: CBCD WBC 5.9 K/mm3 (4.0-10.0) 02/24/18 11:50 RBC 5.14 M/mm3 (4.00-5.60) 02/24/18 11:50 Hgb 14.4 GM/dL (11.7-16.9) 02/24/18 11:50 Hct 41.9 % (35.4-49) D 02/24/18 11:50 MCV 81.6 fl (80-96) 02/24/18 11:50 MCHC 34.4 g/dl (32.0-35.9) 02/24/18 11:50 RDW 16.8 % (11.9-15.9) H 02/24/18 11:50 Plt Count 156 K/MM3 (134-434) D 02/24/18 11:50 MPV 9.0 fl (7.5-11.1) 02/24/18 11:50 CMP Sodium 143 mmol/L (136-145) 02/24/18 11:50 Potassium 4.0 mmol/L (3.5-5.1) 02/24/18 11:50 Chloride 109 mmol/L (98-107) H 02/24/18 11:50 Carbon Dioxide 26 mmol/L (21-32) 02/24/18 11:50 Anion Gap 7 MMOL/L (8-16) L 02/24/18 11:50 BUN 12 mg/dL (7-18) 02/24/18 11:50 Creatinine 1.0 mg/dL (0.55-1.3) 02/24/18 11:50 Creat Clearance w eGFR > 60 (>60) 02/24/18 11:50 Random Glucose 128 mg/dL (74-106) H 02/24/18 11:50 Calcium 9.5 mg/dL (8.5-10.1) 02/24/18 11:50 Total Bilirubin 0.6 mg/dL (0.2-1) 02/24/18 11:50 AST 66 U/L (15-37) H 02/24/18 11:50 ALT 174 U/L (13-61) H 02/24/18 11:50 Alkaline Phosphatase 68 U/L (45-117) 02/24/18 11:50 Total Protein 8.8 g/dl (6.4-8.2) H 02/24/18 11:50 Albumin 4.3 g/dl (3.4-5.0) 02/24/18 11:50 CARDIAC ENZYMES Creatine Kinase 156 IU/L (26-308) 02/24/18 11:50 Troponin I < 0.02 ng/ml (0.00-0.05) 02/24/18 11:50 EKG L reviewed: has episode of tachy cardia and bradycardia more than the respiratory changes no other abnormality in the interval and the waves, since rhythm A&P: Syncope: less likely to be PE but will get CT PE protocol will ask cardiology toe evaluate the patient, He needs EP studies. Hypercoagulable state: will continue with shelley Non obstructive CAD: will C/W aspirin and statin and metoprolol as he is alreay tachycardic Tachycardia: Send TFT,send Utox, C/W metoprolol at this time Back pain:Will recheck the Istop, will give him the medication as he states and will reevaluate tomorrow. Dispo: pending plan for transfer to another hospital with early intervention specialist. Will put him on holter.
--- NOTE | 2018-02-24 19:08 | EKG ---
Test Reason : Blood Pressure : / mmHG Vent. Rate : 101 BPM Atrial Rate : 101 BPM P-R Int : 138 ms QRS Dur : 094 ms QT Int : 342 ms P-R-T Axes : 044 051 024 degrees QTc Int : 443 ms SINUS TACHYCARDIA Tachycardia bradycardia syndrome Confirmed by ENEDINA DOWLING MD ([id number]) on 02/24/2018 7:08:24 PM Referred By: Confirmed By:ENEDINA DOWLING MD
--- NOTE | 2018-02-24 21:10 | CON.NEURO ---
Consult Consult Specialty:: Afia Referred by:: ER Reason for Consultation:: Syncopy - History of Present Illness History of Present Illness: 47 years old man with CAD OA Angina S/p cardiac cath at [place] came in with headache tunnel vision and syncopy No seizure No prior similar events No recent travel or head trauma came to the eR at [place] - History Source History Provided By: Patient, Medical Record Limitations to Obtaining History: No Limitations - Past Medical History Cardio/Vascular: Yes: Deep Vein Thrombosis - Alcohol/Substance Use Hx Alcohol Use: No - Smoking History Smoking history: Never smoked Have you smoked in the past 12 months: No Home Medications - Allergies Allergies/Adverse Reactions: Allergies Allergy/AdvReac Type Severity Reaction Status Date / Time Penicillins Allergy Verified 02/24/18 11:27 - Home Medications Home Medications: Ambulatory Orders Amlodipine Besylate 5 mg PO DAILY 02/12/18 Aspirin [ASA -] 81 mg PO DAILY 02/12/18 Atorvastatin Calcium 80 mg PO DAILY 02/12/18 Isosorbide Mononitrate [Isosorbide Mononitrate ER] 60 mg PO DAILY 02/12/18 Levothyroxine [Synthroid -] 50 mcg PO DAILY 02/12/18 Lidocaine 5% Patch [Lidoderm -] 1 patch TP BID 02/12/18 Lisinopril 10 mg PO DAILY 02/12/18 Nitroglycerin Sublingual [Nitrostat -] 0.4 mg SL PRN PRN 02/12/18 Clopidogrel Bisulfate [Plavix -] 75 mg PO DAILY tablet 02/22/18 Enoxaparin [Lovenox -] 120 mg SQ BID disp.syrin 02/22/18 Pantoprazole Sodium [Protonix -] 40 mg PO DAILY tablet.ec 02/22/18 Polyethylene Glycol 3350 [Miralax 119 gm Btl -] 17 gm PO DAILY bottle 02/22/18 Ranolazine [Ranexa -] 500 mg PO BID tab 02/22/18 oxyCODONE HCL [Roxicodone -] 15 mg PO Q4H PRN tablet MDD 90 02/22/18 Metoprolol Succinate [Toprol Xl] 100 mg PO BID 02/24/18 Family Disease History - Family Disease History Family Disease History: Heart Disease: Father ([place] @ 54, colon cancer @ 54), Brother (CABG @ 39), CA: Father, Sister (ovarian cancer apprx age of dx 30's) Review of Systems - Review of Systems Constitutional: reports: No Symptoms Eyes: reports: No Symptoms HENT: reports: No Symptoms Neurological: reports: Incoordination, Numbness, Parasthesia Physical Exam-Neuro Vital Signs: Vital Signs Temperature 98.8 F 02/24/18 18:08 Pulse Rate 121 H 02/24/18 18:08 Respiratory Rate 18 02/24/18 18:08 Blood Pressure 129/87 02/24/18 18:08 O2 Sat by Pulse Oximetry (%) 98 02/24/18 18:08 Constitutional: Yes: Well Nourished Neck: Yes: WNL Labs: CBC, BMP 02/24/18 11:50 02/24/18 11:50 INR, PTT INR 1.05 (0.83-1.09) 02/24/18 11:50 - Neuro Exam Level Of Consciousness: Yes: Oriented to Person, Oriented to Place, Oriented to Time Eyes: Yes: PERRLA Speech: WNL Dominant Hand: Right DTR's: 1+ Left Bicep, 1+ Right Bicep, 1+ Left Brachioradialis, 1+ Right Brachioradialis Babinski: Absent Response to light touch: Normal Response to pain prick: Normal Response to temperature: Normal Response to vibration: Normal Motor Strength: 3/5: Left Arm, Right Arm, Left Leg, Right Leg Gait: Deferred Imaging - Results Cat Scan: Image Reviewed Problem List - Problems (1) Syncope and collapse Assessment/Plan: ?? Cardiac Arrhythmia after Cath TIA Migarine complicated 1. Neuro check s 2. Holter monitor 3. No MRI 4. Repeat Ct head tomorrow 5. Fall precautions 6. Check oorthostatsis 7. cardiology eval 8. Full ASA 9. Homocysteine level Code(s): R55 - SYNCOPE AND COLLAPSE
--- NOTE | 2018-02-24 21:41 | PN ---
Progress Note (short form) - Note Progress Note: I looked at the chart and spoke to the patient further Patient with hx of Epilspesy off the med for 22 years Hx of DVT On Elliquisi Will start Topamax Problem List - Problems (1) Syncope and collapse Code(s): R55 - SYNCOPE AND COLLAPSE
[2018-02-24] MEDS ORDERED: RANOLAZINE E.R. 500 MG TABLET (FP) PO SCH (22:00)
[2018-02-24] MEDS ORDERED: ATORVASTATIN CA 80 MG TABLET (FP) ONE (22:22)
[2018-02-24] MEDS ORDERED: LIDOCAINE 5% TOPICAL PATCH ONE (22:22)
[2018-02-24] MEDS ORDERED: APIXABAN 5 MG TABLET PO ONE (22:22)
[2018-02-24] MEDS: oxyCODONE HCL 5 MG TABLET PO PRN (22:27)
[2018-02-24] MEDS: APIXABAN 5 MG TABLET PO SCH (22:28)
[2018-02-24] MEDS: ATORVASTATIN CA 80 MG TABLET (FP) PO SCH (22:28)
[2018-02-24] MEDS: LIDOCAINE PATCH REMOVAL MC SCH (22:28)
[2018-02-24] MEDS: RANOLAZINE E.R. 500 MG TABLET (FP) PO SCH (23:47)
[2018-02-25] MEDS: oxyCODONE HCL 5 MG TABLET PO PRN ×6 (02:20→22:56)
[2018-02-25] MEDS: LEVOTHYROXINE NA 50 MCG TABLET (FP) PO SCH (06:29)
[2018-02-25] MEDS ORDERED: LEVOTHYROXINE NA 50 MCG TABLET (FP) PO SCH (07:00)
[2018-02-25 07:59] LABS: HEMATOCRIT 36.8 % (35.4-49); HEMOGLOBIN 11.6 GM/dL (11.7-16.9); MCH 26.3 pg (25.7-33.7); MCHC 31.6 g/dl (32.0-35.9); MEAN CELL VOLUME 83.2 fl (80-96); MEAN PLT VOLUME 9.1 fl (7.5-11.1); PLATELET COUNT 101 K/MM3 (134-434); RBC 4.42 M/mm3 (4.00-5.60); RDW 16.1 % (11.9-15.9); WHITE BLOOD COUNT 3.7 K/mm3 (4.0-10.0)
[2018-02-25 08:47] LABS: ALBUMIN 3.3 g/dl (3.4-5.0); ALK PHOS 53 U/L (45-117); ANION GAP 8 MMOL/L (8-16); BILIRUBIN,TOTAL 0.4 mg/dL (0.2-1); BLOOD UREA NITROGEN 15 mg/dL (7-18); CALCIUM 8.1 mg/dL (8.5-10.1); CHLORIDE 104 mmol/L (98-107); CO2 27 mmol/L (21-32); CREATININE 0.9 mg/dL (0.55-1.3); GLUCOSE,RANDOM 119 mg/dL (74-106); MAGNESIUM 2.3 mg/dL (1.8-2.4); PHOSPHOROUS 4.2 mg/dL (2.5-4.9); POTASSIUM 3.5 mmol/L (3.5-5.1); SGOT/AST 48 U/L (15-37); SGPT/ALT 119 U/L (13-61); SODIUM 139 mmol/L (136-145); TOT PROT 6.8 g/dl (6.4-8.2)
[2018-02-25] MEDS: LISINOPRIL 10 MG TABLET (FP) PO SCH (09:25)
[2018-02-25] MEDS: PANTOPRAZOLE 40 MG TABLET (FP) PO SCH (09:25)
[2018-02-25] MEDS: POLYETHYLENE GLYCOL 3350 119 GM BTL PO SCH (09:25)
[2018-02-25] MEDS: RANOLAZINE E.R. 500 MG TABLET (FP) PO SCH ×2 (09:25→21:55)
[2018-02-25] MEDS: APIXABAN 5 MG TABLET PO SCH ×2 (09:25→21:55)
[2018-02-25] MEDS: ISOSORBIDE MONONITRATE 60 MG TAB.SR.24H (FP) PO SCH (09:25)
[2018-02-25] MEDS: LIDOCAINE 5% TOPICAL PATCH TP SCH (09:25)
[2018-02-25] MEDS ORDERED: LIDOCAINE 5% TOPICAL PATCH TP SCH (10:00)
[2018-02-25] MEDS ORDERED: ISOSORBIDE MONONITRATE 60 MG TAB.SR.24H (FP) PO SCH (10:00)
[2018-02-25 11:28] LABS: COCAINE, UR NEGATIVE ng/ml (CUTOFF=300); METHADONE, UR NEGATIVE ng/ml (CUTOFF=300); PHENCYCLIDINE,URINE NEGATIVE ng/ml (CUTOFF=25); URINE AMPHETAMINES NEGATIVE ng/ml (CUTOFF=500); URINE BARBITURATES NEGATIVE ng/ml (CUTOFF=200); URINE BENZODIAZEPINES NEGATIVE ng/ml (CUTOFF=200)
[2018-02-25 12:44] LABS: OPIATES, URI POSITIVE ng/ml (CUTOFF=300)
--- NOTE | 2018-02-25 13:28 | EKG ---
Test Reason : Blood Pressure : / mmHG Vent. Rate : 116 BPM Atrial Rate : 116 BPM P-R Int : 154 ms QRS Dur : 088 ms QT Int : 324 ms P-R-T Axes : 032 037 017 degrees QTc Int : 450 ms SINUS TACHYCARDIA POSSIBLE LEFT ATRIAL ENLARGEMENT BORDERLINE ECG WHEN COMPARED WITH ECG OF 24-FEB-2018 11:20, NO SIGNIFICANT CHANGE WAS FOUND Confirmed by AUDELIA JI MD ([id number]) on 02/25/2018 1:27:56 PM Referred By: Confirmed By:AUDELIA JI MD
--- NOTE | 2018-02-25 13:49 | PN ---
Physical Exam: SUBJECTIVE: Patient seen and examined, in no distress, the tele reviewed, had episodes of tachycardia to 130 but nothing significant. no symptoms during the night OBJECTIVE: Vital Signs Period Temp Pulse Resp BP Sys/[place] Pulse Ox Last 24 Hr 97.5 F-99.4 F 83-121 16-18 106-140/57-93 96-98 in no distress, sitting CVS:S1S2 CTAB ABD: BS+ BT/ND EXT: NO Edema Laboratory Results - last 24 hr 02/24/18 02/24/18 02/24/18 11:50 11:50 18:32 WBC RBC Hgb Hct MCV MCH MCHC RDW Plt Count MPV Sodium Potassium Chloride Carbon Dioxide Anion Gap BUN Creatinine Creat Clearance w eGFR Random Glucose Calcium Phosphorus Magnesium Total Bilirubin AST ALT Alkaline Phosphatase Creatine Kinase Index 0.8 CK-MB (CK-2) 1.4 Total Protein Albumin TSH 0.49 D Free T4 Opiates Screen Methadone Screen Barbiturate Screen Urine Barbiturates Phencyclidine Screen Ur Amphetamines Screen MDMA (Ecstasy) Screen Benzodiazepines Screen U Benzodiazepines Scrn Cocaine Screen U Marijuana (THC) Screen Blood Type A POSITIVE Antibody Screen Negative 02/24/18 02/25/18 02/25/18 18:32 06:30 06:30 WBC 3.7 L RBC 4.42 Hgb 11.6 L Hct 36.8 MCV 83.2 MCH 26.3 MCHC 31.6 L RDW 16.1 H Plt Count 101 L D MPV 9.1 Sodium 139 Potassium 3.5 Chloride 104 Carbon Dioxide 27 Anion Gap 8 BUN 15 Creatinine 0.9 Creat Clearance w eGFR > 60 Random Glucose 119 H Calcium 8.1 L Phosphorus 4.2 Magnesium 2.3 Total Bilirubin 0.4 AST 48 H ALT 119 H Alkaline Phosphatase 53 Creatine Kinase Index CK-MB (CK-2) Total Protein 6.8 Albumin 3.3 L TSH Free T4 1.31 H Opiates Screen Methadone Screen Barbiturate Screen Urine Barbiturates Phencyclidine Screen Ur Amphetamines Screen MDMA (Ecstasy) Screen Benzodiazepines Screen U Benzodiazepines Scrn Cocaine Screen U Marijuana (THC) Screen Blood Type Antibody Screen 02/25/18 02/25/18 02/25/18 09:00 09:00 09:00 WBC RBC Hgb Hct MCV MCH MCHC RDW Plt Count MPV Sodium Potassium Chloride Carbon Dioxide Anion Gap BUN Creatinine Creat Clearance w eGFR Random Glucose Calcium Phosphorus Magnesium Total Bilirubin AST ALT Alkaline Phosphatase Creatine Kinase Index CK-MB (CK-2) Total Protein Albumin TSH Free T4 Opiates Screen Positive A* Methadone Screen Negative Barbiturate Screen Negative Urine Barbiturates Cancelled Phencyclidine Screen Negative Ur Amphetamines Screen Negative MDMA (Ecstasy) Screen Negative Benzodiazepines Screen Negative U Benzodiazepines Scrn Cancelled Cocaine Screen Negative U Marijuana (THC) Screen Negative Blood Type Antibody Screen Active Medications Generic Name Dose Route Start Last Admin Trade Name Freq PRN Reason Stop Dose Admin Apixaban 5 mg 02/24/18 22:00 02/25/18 09:25 Eliquis - PO 5 mg BID JESSICA Administration Atorvastatin Calcium 80 mg 02/24/18 22:00 02/24/18 22:28 Lipitor - PO 80 mg HS JESSICA Administration Isosorbide Mononitrate 60 mg 02/24/18 17:45 02/25/18 09:25 Imdur - PO 60 mg DAILY JESSICA Administration Levothyroxine Sodium 50 mcg 02/24/18 17:48 02/25/18 06:29 Synthroid - PO 50 mcg DAILY@0700 JESSICA Administration Lidocaine 1 patch 02/24/18 17:48 02/25/18 09:25 Lidoderm Patch - TP 1 patch DAILY JESSICA Administration Lisinopril 10 mg 02/25/18 10:00 02/25/18 09:25 Prinivil PO 10 mg DAILY JESSICA Administration Metoprolol Succinate 100 mg 02/25/18 10:00 02/25/18 09:25 Toprol Xl - PO 100 mg BID JESSICA Administration Miscellaneous 1 each 02/24/18 22:00 02/24/18 22:28 Lidoderm Patch Removal MC 1 each DAILY@2200 JESSICA Administration Oxycodone HCl 15 mg 02/24/18 22:09 02/25/18 10:35 Roxicodone - PO 15 mg Q4H PRN Administration PAIN LEVEL 6-10 Pantoprazole Sodium 40 mg 02/24/18 17:00 02/25/18 09:25 Protonix - PO 40 mg DAILY JESSICA Administration Polyethylene Glycol 17 gm 02/24/18 17:00 02/25/18 09:25 Miralax (For Daily Use) - PO 17 grams DAILY JESSICA Administration Ranolazine 500 mg 02/24/18 17:46 12/29/18 09:25 Ranexa - PO 500 mg BID JESSICA Administration ASSESSMENT/PLAN: LOC: still the reason is unclear,TFT pending for over treatment for Hypothyroid can be the cause of tachycardia at this time.Will C/W metoprolol at his time Utox negative NO need for neuro intervention at this time chest pain: will C/W renaxa. pending cardio eval, likely to be transferred for EP studies Unclear if the patient has secondary gains from hospitalizations. will ask SW about finding if the patient has a place to stay Dispo: home after 24 hours of monitoring Diet: regular DVTppx: He is on eliqus Visit type - Emergency Visit Emergency Visit: No - New Patient This patient is new to me today: No - Critical Care Critical Care patient: No - Discharge Referral Referred to [facility] Med P.C.: No
--- NOTE | 2018-02-25 13:54 | CON.CARD ---
Consult Consult Specialty:: Cardiology Referred by:: Hospitalist Reason for Consultation:: Cardiac evaluation - History of Present Illness Chief Complaint: Syncope History of Present Illness: Patient is a 47 year old male recently hospitalized here at [facility] for GI work up and then was transferred to [facility] for left heart catheterization. His medical history includes HTN, hypercholesterolemia, positive stress test (both nuclear and stress echo), DVT and pulmonary embolism (2014 and then in 2018) on Eliquis (previously on Coumadin), s/p IVC filter, hypothyroidism and then has internal loop recorder for bradycardic episode 4 years ago. He had the cardiac catheterization on Tue and it showed non- obstructive CAD. He was discharged from [place] on morning and on Tuesday as he was checking out of the Hotel he has been staying, he passed out. He states history of seizure as a teenage and had taken medication, but since then he has not had further episode and currently does not take any seizure medications. He denies chest pain, SOB or palpitations. He denies paroxysmal nocturnal dyspnea or orthopnea. He denies headache or lightheadedness at this time. He denies fever or chills. He denies nausea, vomiting, diarrhea or abdominal pain. 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 Cardio/Vascular: Yes: CAD, Deep Vein Thrombosis, HTN, Hyperlipdemia Pulmonary: Yes: Pulmonary Embolus Endocrine: Yes: Hypothyroidism - Past Surgical History Additional Surgical History: IVC filter - Alcohol/Substance Use Hx Alcohol Use: No History of Substance Use: reports: None - Smoking History Smoking history: Never smoked Have you smoked in the past 12 months: No Home Medications - Allergies Allergies/Adverse Reactions: Allergies Allergy/AdvReac Type Severity Reaction Status Date / Time Penicillins Allergy Verified 02/24/18 11:27 - Home Medications Home Medications: Ambulatory Orders Amlodipine Besylate 5 mg PO DAILY 02/12/18 Aspirin [ASA -] 81 mg PO DAILY 02/12/18 Atorvastatin Calcium 80 mg PO DAILY 02/12/18 Isosorbide Mononitrate [Isosorbide Mononitrate ER] 60 mg PO DAILY 02/12/18 Levothyroxine [Synthroid -] 50 mcg PO DAILY 02/12/18 Lidocaine 5% Patch [Lidoderm -] 1 patch TP BID 02/12/18 Lisinopril 10 mg PO DAILY 02/12/18 Nitroglycerin Sublingual [Nitrostat -] 0.4 mg SL PRN PRN 02/12/18 Clopidogrel Bisulfate [Plavix -] 75 mg PO DAILY tablet 02/22/18 Enoxaparin [Lovenox -] 120 mg SQ BID disp.syrin 02/22/18 Pantoprazole Sodium [Protonix -] 40 mg PO DAILY tablet.ec 02/22/18 Polyethylene Glycol 3350 [Miralax 119 gm Btl -] 17 gm PO DAILY bottle 02/22/18 Ranolazine [Ranexa -] 500 mg PO BID tab 02/22/18 oxyCODONE HCL [Roxicodone -] 15 mg PO Q4H PRN tablet MDD 90 02/22/18 Metoprolol Succinate [Toprol Xl] 100 mg PO BID 02/24/18 Family Disease History - Family Disease History Family Disease History: Heart Disease: Father ([place] @ 54, colon cancer @ 54), Brother (CABG @ 39), CA: Father, Sister (ovarian cancer apprx age of dx 30's) Review of Systems - Review of Systems Constitutional: denies: Chills, Fever Cardiovascular: denies: Chest Pain, Palpitations, Shortness of Breath Respiratory: denies: Cough, Hemoptysis, Orthopnea, PND, SOB, SOB on Exertion Gastrointestinal: denies: Abdominal Pain, Constipation, Diarrhea, Melena, Nausea , Rectal Bleeding, Vomiting Genitourinary: denies: Discharge, Hematuria Musculoskeletal: denies: Back Pain, Joint Pain Neurological: reports: Dizziness, Seizure, Syncope. denies: Headache Vital Signs: Vital Signs Temperature 98.4 F 02/25/18 08:02 Pulse Rate 102 H 02/25/18 08:02 Respiratory Rate 17 02/25/18 08:04 Blood Pressure 118/77 02/25/18 08:02 O2 Sat by Pulse Oximetry (%) 98 02/25/18 08:04 Constitutional: Yes: Well Nourished Eyes: Yes: PERRL HENT: Yes: Atraumatic Neck: Yes: Supple Respiratory: Yes: CTA Bilaterally Gastrointestinal: Yes: Normal Bowel Sounds, Soft. No: Tenderness Cardiovascular: Yes: Regular Rate and Rhythm JVD: No Carotid Bruit: No PMI: Non-Displaced Heart Sounds: Yes: S1, S2. No: Gallop Edema: No - Other Data Labs, Other Data: CBC, BMP 02/25/18 06:30 02/25/18 06:30 INR, PTT INR 1.05 (0.83-1.09) 02/24/18 11:50 Echo: Report Reviewed Ejection Fraction %: LVEF > or = 40 % Imaging - Results Chest X-ray: Report Reviewed (Unremarkable) Cat Scan: Report Reviewed (Head CT unremarkable Chest CT no PE) EKG: Report Reviewed Problem List - Problems (1) Syncope and collapse Code(s): R55 - SYNCOPE AND COLLAPSE (2) Family history of malignant neoplasm of colon in first degree relative diagnosed when younger than 60 years of age Code(s): Z80.0 - FAMILY HISTORY OF MALIGNANT NEOPLASM OF DIGESTIVE ORGANS (3) Family history of premature coronary artery disease Code(s): Z82.49 - FAMILY HX OF ISCHEM HEART DIS AND OTH DIS OF THE CIRC SYS (4) H/O deep venous thrombosis Code(s): Z86.718 - PERSONAL HISTORY OF OTHER VENOUS THROMBOSIS AND EMBOLISM (5) History of pulmonary embolism Code(s): Z86.711 - PERSONAL HISTORY OF PULMONARY EMBOLISM (6) Hyperlipidemia Code(s): E78.5 - HYPERLIPIDEMIA, UNSPECIFIED Qualifiers: Hyperlipidemia type: pure hypercholesterolemia Qualified Code(s): E78.00 - Pure hypercholesterolemia, unspecified; E78.0 - Pure hypercholesterolemia (7) Hypothyroidism Code(s): E03.9 - HYPOTHYROIDISM, UNSPECIFIED Qualifiers: Hypothyroidism type: unspecified Qualified Code(s): E03.9 - Hypothyroidism , unspecified (8) Progressive angina Code(s): I20.0 - UNSTABLE ANGINA Assessment/Plan 1. Syncope, etiology to be determined, rule out vasovagal vs. neurocardiogenic 2. History of seizure 3. Non-obstructive CAD via recent C 4. HTN 5. Hypercholesterolemia 6. Hypothyroidism 7. 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 Diastolic dysfunction 9. T11 compression fracture with need for spinal fusion PLAN: 1. bridge ironworker 2. Interrogate loop monitor 3. Neuro input to follow 4. Consider Tilt table test if loop does not reveal any arrhythmias 5. Continue Toprol XL and Prinivil 6. Continue Imdur and Ranexa 7. Continue Eliquis Further plans are to follow Tod Delgado MD
--- NOTE | 2018-02-25 15:51 | PN ---
Progress Note, Physician History of Present Illness: events noted chart review patient seen on telemetry since admission no episodes of seizures syncope near-syncope. Patient still feels tachycardia with fluttering sensation in the heart cardiology still waiting the information regarding the loop recorder. Patient denies any nausea vomiting. Still awaiting the EEG. - Current Medication List Current Medications: Active Medications Apixaban (Eliquis -) 5 mg PO BID REPLACED BY [facility] Last Admin: 02/25/18 09:25 Dose: 5 mg Atorvastatin Calcium (Lipitor -) 80 mg PO HS REPLACED BY [facility] Last Admin: 02/24/18 22:28 Dose: 80 mg Isosorbide Mononitrate (Imdur -) 60 mg PO DAILY REPLACED BY [facility] Last Admin: 02/25/18 09:25 Dose: 60 mg Levothyroxine Sodium (Synthroid -) 50 mcg PO DAILY@0700 REPLACED BY [facility] Last Admin: 02/25/18 06:29 Dose: 50 mcg Lidocaine (Lidoderm Patch -) 1 patch TP DAILY REPLACED BY [facility] Last Admin: 02/25/18 09:25 Dose: 1 patch Lisinopril (Prinivil) 10 mg PO DAILY REPLACED BY [facility] Last Admin: 02/25/18 09:25 Dose: 10 mg Metoprolol Succinate (Toprol Xl -) 100 mg PO BID REPLACED BY [facility] Last Admin: 02/25/18 09:25 Dose: 100 mg Miscellaneous (Lidoderm Patch Removal) 1 each MC DAILY@2200 REPLACED BY [facility] Last Admin: 02/24/18 22:28 Dose: 1 each Oxycodone HCl (Roxicodone -) 15 mg PO Q4H PRN PRN Reason: PAIN LEVEL 6-10 Last Admin: 02/25/18 14:27 Dose: 15 mg Pantoprazole Sodium (Protonix -) 40 mg PO DAILY REPLACED BY [facility] Last Admin: 02/25/18 09:25 Dose: 40 mg Polyethylene Glycol (Miralax (For Daily Use) -) 17 gm PO DAILY REPLACED BY [facility] Last Admin: 02/25/18 09:25 Dose: 17 grams Ranolazine (Ranexa -) 500 mg PO BID REPLACED BY [facility] Last Admin: 02/25/18 09:25 Dose: 500 mg - Objective Vital Signs: Vital Signs Temperature 98.4 F 02/25/18 08:02 Pulse Rate 102 H 02/25/18 08:02 Respiratory Rate 17 02/25/18 08:04 Blood Pressure 118/77 02/25/18 08:02 O2 Sat by Pulse Oximetry (%) 98 02/25/18 08:04 Constitutional: Yes: Well Nourished Eyes: Yes: WNL Neurological: Yes: Alert, Oriented, Babinski negative ...Motor Strength: WNL Labs: CBC, BMP 02/25/18 06:30 02/25/18 06:30 INR, PTT INR 1.05 (0.83-1.09) 02/24/18 11:50 Problem List - Problems (1) Syncope and collapse Assessment/Plan: questionable seizure with a history of epilepsy remote. Cardiac arrhythmia associated with complicated cardiac history 1. Seizure precautions. 2. Topamax 50 mg twice daily. 3. Headache diary. 4. Follow-up with cardiology. 5. Suggest electrophysiology cardiology evaluation as an outpatient with a tilt table test. 6. EEG. Code(s): R55 - SYNCOPE AND COLLAPSE
[2018-02-25] MEDS ORDERED: PT OWN MED DRAWER 7, Y5N ONE (21:24)
[2018-02-25] MEDS: TOPIRAMATE 25 MG TABLET (FP) PO SCH (21:55)
[2018-02-25] MEDS: ATORVASTATIN CA 80 MG TABLET (FP) PO SCH (21:55)
[2018-02-25] MEDS: LIDOCAINE PATCH REMOVAL MC SCH (21:56)
[2018-02-26] MEDS: oxyCODONE HCL 5 MG TABLET PO PRN ×4 (03:18→20:18)
[2018-02-26] MEDS: LEVOTHYROXINE NA 50 MCG TABLET (FP) PO SCH (07:38)
--- NOTE | 2018-02-26 09:15 | PN ---
Progress Note, Physician Chief Complaint: Not in distress History of Present Illness: Patient was seen and examined. Awake and alert. Chart was reviewed Denies chest pain, SOB or palpitations Still not clear which company for his implantable loop recorder - Current Medication List Current Medications: Active Medications Apixaban (Eliquis -) 5 mg PO BID [facility] Last Admin: 02/25/18 21:55 Dose: 5 mg Atorvastatin Calcium (Lipitor -) 80 mg PO HS [facility] Last Admin: 02/25/18 21:55 Dose: 80 mg Isosorbide Mononitrate (Imdur -) 60 mg PO DAILY [facility] Last Admin: 02/25/18 09:25 Dose: 60 mg Levothyroxine Sodium (Synthroid -) 50 mcg PO DAILY@0700 [facility] Last Admin: 02/26/18 07:38 Dose: 50 mcg Lidocaine (Lidoderm Patch -) 1 patch TP DAILY [facility] Last Admin: 02/25/18 09:25 Dose: 1 patch Lisinopril (Prinivil) 10 mg PO DAILY [facility] Last Admin: 02/25/18 09:25 Dose: 10 mg Metoprolol Succinate (Toprol Xl -) 100 mg PO BID [facility] Last Admin: 02/25/18 21:55 Dose: 100 mg Miscellaneous (Lidoderm Patch Removal) 1 each MC DAILY@2200 [facility] Last Admin: 02/25/18 21:56 Dose: 1 each Oxycodone HCl (Roxicodone -) 15 mg PO Q4H PRN PRN Reason: PAIN LEVEL 6-10 Last Admin: 02/26/18 07:38 Dose: 15 mg Pantoprazole Sodium (Protonix -) 40 mg PO DAILY [facility] Last Admin: 02/25/18 09:25 Dose: 40 mg Polyethylene Glycol (Miralax (For Daily Use) -) 17 gm PO DAILY [facility] Last Admin: 02/25/18 09:25 Dose: 17 grams Ranolazine (Ranexa -) 500 mg PO BID [facility] Last Admin: 02/25/18 21:55 Dose: 500 mg Topiramate (Topamax -) 50 mg PO BID [facility] Last Admin: 02/25/18 21:55 Dose: 50 mg - Objective Vital Signs: Vital Signs Temperature 97.9 F 02/26/18 06:00 Pulse Rate 87 02/26/18 06:00 Respiratory Rate 18 02/26/18 06:00 Blood Pressure 119/66 12/30/18 06:00 O2 Sat by Pulse Oximetry (%) 97 02/25/18 21:00 Eyes: Yes: PERRL HENT: Yes: Atraumatic Neck: Yes: Supple Cardiovascular: Yes: Regular Rate and Rhythm, S1, S2 Respiratory: Yes: CTA Bilaterally Gastrointestinal: Yes: Normal Bowel Sounds, Soft. No: Tenderness Edema: No Additional Findings/Remarks: - Review of Systems Constitutional: denies: Chills, Fever Cardiovascular: denies: Chest Pain, Palpitations, Shortness of Breath Respiratory: denies: Cough, Hemoptysis, Orthopnea, PND, SOB, SOB on Exertion Gastrointestinal: denies: Abdominal Pain, Constipation, Diarrhea, Melena, Nausea , Rectal Bleeding, Vomiting Genitourinary: denies: Discharge, Hematuria Musculoskeletal: denies: Back Pain, Joint Pain Neurological: reports: Dizziness, Seizure, Syncope. denies: Headache Labs: CBC, BMP 02/25/18 06:30 02/25/18 06:30 INR, PTT INR 1.05 (0.83-1.09) 02/24/18 11:50 Problem List - Problems (1) Syncope and collapse Code(s): R55 - SYNCOPE AND COLLAPSE (2) Family history of malignant neoplasm of colon in first degree relative diagnosed when younger than 60 years of age Code(s): Z80.0 - FAMILY HISTORY OF MALIGNANT NEOPLASM OF DIGESTIVE ORGANS (3) Family history of premature coronary artery disease Code(s): Z82.49 - FAMILY HX OF ISCHEM HEART DIS AND OTH DIS OF THE [facility] (4) H/O deep venous thrombosis Code(s): Z86.718 - PERSONAL HISTORY OF OTHER VENOUS THROMBOSIS AND EMBOLISM (5) History of pulmonary embolism Code(s): Z86.711 - PERSONAL HISTORY OF PULMONARY EMBOLISM (6) Hyperlipidemia Code(s): E78.5 - HYPERLIPIDEMIA, UNSPECIFIED Qualifiers: Hyperlipidemia type: pure hypercholesterolemia Qualified Code(s): E78.00 - Pure hypercholesterolemia, unspecified; E78.0 - Pure hypercholesterolemia (7) Hypothyroidism Code(s): E03.9 - HYPOTHYROIDISM, UNSPECIFIED Qualifiers: Hypothyroidism type: unspecified Qualified Code(s): E03.9 - Hypothyroidism , unspecified (8) Progressive angina Code(s): I20.0 - UNSTABLE ANGINA Assessment/Plan 1. Syncope, etiology to be determined, rule out vasovagal vs. neurocardiogenic 2. History of seizure 3. Non-obstructive CAD via recent C 4. HTN 5. Hypercholesterolemia 6. Hypothyroidism 7. 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 Diastolic dysfunction 9. T11 compression fracture with need for spinal fusion PLAN: 1. residential monitor 2. Interrogate loop monitor - to find out whether is is [employer] or another company. Could not find the exact registry yet 3. EEG as per neuro recommendation 4. Consider Tilt table test if loop does not reveal any arrhythmias 5. Continue Toprol XL and Prinivil 6. Continue Imdur and Ranexa 7. Continue Eliquis Further plans are to follow Tod Delgado MD
[2018-02-26] MEDS: APIXABAN 5 MG TABLET PO SCH ×2 (09:48→22:08)
[2018-02-26] MEDS: RANOLAZINE E.R. 500 MG TABLET (FP) PO SCH ×2 (09:48→22:08)
[2018-02-26] MEDS: PANTOPRAZOLE 40 MG TABLET (FP) PO SCH (09:48)
[2018-02-26] MEDS: LISINOPRIL 10 MG TABLET (FP) PO SCH (09:48)
[2018-02-26] MEDS: ISOSORBIDE MONONITRATE 60 MG TAB.SR.24H (FP) PO SCH (09:48)
[2018-02-26] MEDS: POLYETHYLENE GLYCOL 3350 119 GM BTL PO SCH (09:49)
[2018-02-26] MEDS: LIDOCAINE 5% TOPICAL PATCH TP SCH (09:49)
[2018-02-26] MEDS: TOPIRAMATE 25 MG TABLET (FP) PO SCH ×2 (09:49→22:07)
--- NOTE | 2018-02-26 10:05 | PN ---
Physical Exam: SUBJECTIVE: Patient seen and examined this AM. He states he is feeling well with no current complaints. OBJECTIVE: Vital Signs Period Temp Pulse Resp BP Sys/Franklin Pulse Ox Last 24 Hr 97.9 F-98.4 F 83-103 18-20 119-147/66-87 97-97 GENERAL: A&O, no acute distress HEAD: Normocephalic, atraumatic. EYES: PERRL, no scleral icterus EARS, NOSE, THROAT: oropharynx clear without exudates. Moist mucous membranes. NECK: supple without lymphadenopathy LUNGS: CTA b/l, no crackles or wheezes HEART: Regular rate and rhythm, normal S1 and S2 without murmur ABDOMEN: Soft, nontender to palpation, normoactive bowel sounds EXTREMITIES: 2+ pulses, warm, well-perfused. No peripheral edema. NEUROLOGICAL: Cranial nerves II-XII grossly intact. Normal speech. Laboratory Results - last 24 hr 02/25/18 02/25/18 02/25/18 09:00 09:00 09:00 Opiates Screen Positive A* Methadone Screen Negative Barbiturate Screen Negative Urine Barbiturates Cancelled Phencyclidine Screen Negative Ur Amphetamines Screen Negative MDMA (Ecstasy) Screen Negative Benzodiazepines Screen Negative U Benzodiazepines Scrn Cancelled Cocaine Screen Negative U Marijuana (THC) Screen Negative Active Medications Generic Name Dose Route Start Last Admin Trade Name Stephanie PRN Reason Stop Dose Admin Apixaban 5 mg 02/24/18 22:00 02/26/18 09:48 Eliquis - PO 5 mg BID JESSICA Administration Atorvastatin Calcium 80 mg 02/24/18 22:00 02/25/18 21:55 Lipitor - PO 80 mg HS JESSICA Administration Isosorbide Mononitrate 60 mg 02/24/18 17:45 02/26/18 09:48 Imdur - PO 60 mg DAILY JESSICA Administration Levothyroxine Sodium 50 mcg 02/24/18 17:48 02/26/18 07:38 Synthroid - PO 50 mcg DAILY@0700 JESSICA Administration Lidocaine 1 patch 02/24/18 17:48 02/26/18 09:49 Lidoderm Patch - TP 1 patch DAILY JESSICA Administration Lisinopril 10 mg 02/25/18 10:00 02/26/18 09:48 Prinivil PO 10 mg DAILY JESSICA Administration Metoprolol Succinate 100 mg 02/25/18 10:00 02/26/18 09:48 Toprol Xl - PO 100 mg BID JESSICA Administration Miscellaneous 1 each 02/24/18 22:00 02/25/18 21:56 Lidoderm Patch Removal MC 1 each DAILY@2200 JESSICA Administration Oxycodone HCl 15 mg 02/24/18 22:09 02/26/18 07:38 Roxicodone - PO 15 mg Q4H PRN Administration PAIN LEVEL 6-10 Pantoprazole Sodium 40 mg 02/24/18 17:00 02/26/18 09:48 Protonix - PO 40 mg DAILY JESSICA Administration Polyethylene Glycol 17 gm 02/24/18 17:00 02/26/18 09:49 Miralax (For Daily Use) - PO 17 grams DAILY JESSICA Administration Ranolazine 500 mg 02/24/18 17:46 02/26/18 09:48 Ranexa - PO 500 mg BID JESSICA Administration Topiramate 50 mg 02/25/18 22:00 02/26/18 09:49 Topamax - PO 50 mg BID JESSICA Administration ASSESSMENT/PLAN: 47 y/o gentleman with a significant past medical history of HTN, HLD, positive stress test in [place] 6 months ago, positive stress test [facility] November 2017, Recent Heart Cath last week, hypothyroidism, DVT (2011 s/p R Knee surgery), Pulmonary embolism (2014), Pulmonary embolism Mar 2017 (started on Coumadin), another PE Oct 2017 (Coumadin switched to eliquis), IVC filter placement admitted with complaint syncopal episode. Syncope -Pt with distant history of seizures but has not required anti seizure meds for many years without and seizures -States he felt a weird heart flutter prior to syncopal episode -Cardiology consult appreciated -Neurology consult appreciated -For EEG tomorro -Investigate loop recorder and if no events, pt can have tilt table testing as outpatient -Telemetry monitoring Recurrent DVT/PEs with IVC Filter -Pt reports negative hypercoagulable workup in the past -On Eliquis 5 mg PO BID, though currently held for Colonoscopy -Lovenox 120 mg SQ BID -Heme/onc consulted on previous admission -Recommend standard cancer screening as pt has not had all adequate screening HTN -Lisinopril 10 mg PO Daily -Toprol XL 100 mg PO BID -Imdur 60 mg PO Daily -Norvasc 5 mg PO Daily Hypothyroidism -Synthroid 50 mcg PO AM HLD -Lipitor 80 mg PO HS Transaminitis -Pt denies alcohol use -Hep C Ab positive, RNA PCR positive -New diagnosis of HCV on recent admission -EGD did not reveal any varices or gastritis DVT Prophylaxis -Eliquis 5 mg PO BID FEN -Fluids: none -Electrolytes: No electrolyte abnormalities -Nutrition: Na controlled diet Disposition Telemetry Visit type - Emergency Visit Emergency Visit: Yes ED Registration Date: 02/24/18 Care time: The patient presented to the Emergency Department on the above date and was hospitalized for further evaluation of their emergent condition. - New Patient This patient is new to me today: Yes Date on this admission: 02/26/18 - Critical Care Critical Care patient: No
[2018-02-26 11:12] VITALS: BMI 32.5
[2018-02-26] MEDS: ATORVASTATIN CA 80 MG TABLET (FP) PO SCH (22:08)
[2018-02-26] MEDS: LIDOCAINE PATCH REMOVAL MC SCH (22:10)
[2018-02-27] MEDS: oxyCODONE HCL 5 MG TABLET PO PRN ×6 (00:15→21:31)
[2018-02-27] MEDS: LEVOTHYROXINE NA 50 MCG TABLET (FP) PO SCH (06:22)
--- NOTE | 2018-02-27 07:59 | PN ---
Teaching Attending Note Name of Resident: Holland Godoy ATTENDING PHYSICIAN STATEMENT I saw and evaluated the patient. I reviewed the resident's note and discussed the case with the resident. I agree with the resident's findings and plan as documented. SUBJECTIVE: No more episodes, He has a loop recorder which is pending to be interogated if we can find the brand. OBJECTIVE: Last Vital Signs in no distress CVS:s1S2 CTAB ABd: BS+ nt/nd EXT: no edema Temp Pulse Resp BP Pulse Ox 98.1 F 94 H 18 130/60 97 02/27/18 05:00 02/27/18 05:00 02/27/18 05:00 02/27/18 05:00 02/26/18 21:00 Current Medications Generic Name Dose Route Start Last Admin Trade Name Freq PRN Reason Stop Dose Admin Apixaban 5 mg 02/24/18 22:00 02/26/18 22:08 Eliquis - PO 5 mg BID JESSICA Administration Atorvastatin Calcium 80 mg 02/24/18 22:00 02/26/18 22:08 Lipitor - PO 80 mg HS JESSICA Administration Isosorbide Mononitrate 60 mg 02/24/18 17:45 02/26/18 09:48 Imdur - PO 60 mg DAILY JESSICA Administration Levothyroxine Sodium 50 mcg 02/24/18 17:48 02/27/18 06:22 Synthroid - PO 50 mcg DAILY@0700 JESSICA Administration Lidocaine 1 patch 02/24/18 17:48 02/26/18 09:49 Lidoderm Patch - TP 1 patch DAILY JESSICA Administration Lisinopril 10 mg 02/25/18 10:00 02/26/18 09:48 Prinivil PO 10 mg DAILY JESSICA Administration Metoprolol Succinate 100 mg 02/25/18 10:00 02/26/18 22:08 Toprol Xl - PO 100 mg BID JESSICA Administration Miscellaneous 1 each 02/24/18 22:00 02/26/18 22:10 Lidoderm Patch Removal MC 1 each DAILY@2200 JESSICA Administration Oxycodone HCl 15 mg 02/24/18 22:09 02/27/18 04:38 Roxicodone - PO 15 mg Q4H PRN Administration PAIN LEVEL 6-10 Pantoprazole Sodium 40 mg 02/24/18 17:00 02/26/18 09:48 Protonix - PO 40 mg DAILY J[facility] Administration Polyethylene Glycol 17 gm 02/24/18 17:00 02/26/18 09:49 Miralax (For Daily Use) - PO 17 grams DAILY JESSICA Administration Ranolazine 500 mg 02/24/18 17:46 02/26/18 22:08 Ranexa - PO 500 mg BID JESSICA Administration Topiramate 50 mg 02/25/18 22:00 02/26/18 22:07 Topamax - PO 50 mg BID J[facility] Administration ASSESSMENT AND PLAN: LOC: still the reason is unclear,TFT pending for over treatment for Hypothyroid can be the cause of tachycardia at this time.Will C/W metoprolol at his time.Utox negative,NO need for neuro intervention at this time .Was evaluated by cardiology the loop recorder is out of battery and W/U can be done as O/P. chest pain: will C/W renaxa. pending cardio eval, likely to be transferred for EP studies Unclear if the patient has secondary gains from hospitalizations. will ask SW about finding if the patient has a place to stay Dispo: home today wiht cardio F/U Diet: regular DVTppx: He is on eli[employer]NA SOCIALs
[2018-02-27] MEDS: LIDOCAINE 5% TOPICAL PATCH TP SCH (10:47)
[2018-02-27] MEDS: LISINOPRIL 10 MG TABLET (FP) PO SCH (10:47)
[2018-02-27] MEDS: PANTOPRAZOLE 40 MG TABLET (FP) PO SCH (10:47)
[2018-02-27] MEDS: RANOLAZINE E.R. 500 MG TABLET (FP) PO SCH ×2 (10:47→21:30)
[2018-02-27] MEDS: APIXABAN 5 MG TABLET PO SCH ×2 (10:47→21:28)
[2018-02-27] MEDS: TOPIRAMATE 25 MG TABLET (FP) PO SCH ×2 (10:47→21:30)
[2018-02-27] MEDS: ISOSORBIDE MONONITRATE 60 MG TAB.SR.24H (FP) PO SCH (10:47)
[2018-02-27] MEDS: POLYETHYLENE GLYCOL 3350 119 GM BTL PO SCH (10:56)
--- NOTE | 2018-02-27 11:15 | PN ---
Progress Note, Physician Chief Complaint: Not in distress History of Present Illness: Patient was seen and examined. Awake and alert. Chart was reviewed Denies chest pain, SOB or palpitations Probable [employer] Loop but CARLIE on battery, thus not able to interrogate sinus tachycardia on the monitor - Current Medication List Current Medications: Active Medications Apixaban (Eliquis -) 5 mg PO BID [facility] Last Admin: 02/27/18 10:47 Dose: 5 mg Atorvastatin Calcium (Lipitor -) 80 mg PO HS [facility] Last Admin: 02/26/18 22:08 Dose: 80 mg Isosorbide Mononitrate (Imdur -) 60 mg PO DAILY [facility] Last Admin: 02/27/18 10:47 Dose: 60 mg Levothyroxine Sodium (Synthroid -) 50 mcg PO DAILY@0700 [facility] Last Admin: 02/27/18 06:22 Dose: 50 mcg Lidocaine (Lidoderm Patch -) 1 patch TP DAILY [facility] Last Admin: 02/27/18 10:47 Dose: 1 patch Lisinopril (Prinivil) 10 mg PO DAILY [facility] Last Admin: 02/27/18 10:47 Dose: 10 mg Metoprolol Succinate (Toprol Xl -) 100 mg PO BID [facility] Last Admin: 02/27/18 10:47 Dose: 100 mg Miscellaneous (Lidoderm Patch Removal) 1 each MC DAILY@2200 [facility] Last Admin: 02/26/18 22:10 Dose: 1 each Oxycodone HCl (Roxicodone -) 15 mg PO Q4H PRN PRN Reason: PAIN LEVEL 6-10 Last Admin: 02/27/18 08:24 Dose: 15 mg Pantoprazole Sodium (Protonix -) 40 mg PO DAILY [facility] Last Admin: 02/27/18 10:47 Dose: 40 mg Polyethylene Glycol (Miralax (For Daily Use) -) 17 gm PO DAILY [facility] Last Admin: 02/27/18 10:56 Dose: Not Given Ranolazine (Ranexa -) 500 mg PO BID [facility] Last Admin: 02/27/18 10:47 Dose: 500 mg Topiramate (Topamax -) 50 mg PO BID [facility] Last Admin: 02/27/18 10:47 Dose: 50 mg - Objective Vital Signs: Vital Signs Temperature 98.1 F 02/27/18 05:00 Pulse Rate 94 H 02/27/18 05:00 Respiratory Rate 18 02/27/18 05:00 Blood Pressure 130/60 02/27/18 05:00 O2 Sat by Pulse Oximetry (%) 97 02/26/18 21:00 Constitutional: Yes: Well Nourished Eyes: Yes: PERRL HENT: Yes: Atraumatic Neck: Yes: Supple Cardiovascular: Yes: Regular Rate and Rhythm, S1, S2 Respiratory: Yes: CTA Bilaterally Gastrointestinal: Yes: Normal Bowel Sounds, Soft. No: Tenderness Edema: No Additional Findings/Remarks: - Review of Systems Constitutional: denies: Chills, Fever Cardiovascular: denies: Palpitations. denies: Chest Pain, Shortness of Breath Respiratory: denies: Cough, Hemoptysis, Orthopnea, PND, SOB, SOB on Exertion Gastrointestinal: denies: Abdominal Pain, Melena, Nausea, Rectal Bleeding, Vomiting Genitourinary: denies: Dysuria, Hematuria Musculoskeletal: denies: Back Pain, Joint Pain Neurological: denies: Dizziness. denies: Change in Speech, Headache, Numbness, Parasthesia, Seizure, (+) Syncope Problem List - Problems (1) Syncope and collapse Code(s): R55 - SYNCOPE AND COLLAPSE (2) Family history of malignant neoplasm of colon in first degree relative diagnosed when younger than 60 years of age Code(s): Z80.0 - FAMILY HISTORY OF MALIGNANT NEOPLASM OF DIGESTIVE ORGANS (3) Family history of premature coronary artery disease Code(s): Z82.49 - FAMILY HX OF ISCHEM HEART DIS AND OTH DIS OF [facility] (4) H/O deep venous thrombosis Code(s): Z86.718 - PERSONAL HISTORY OF OTHER VENOUS THROMBOSIS AND EMBOLISM (5) History of pulmonary embolism Code(s): Z86.711 - PERSONAL HISTORY OF PULMONARY EMBOLISM (6) Hyperlipidemia Code(s): E78.5 - HYPERLIPIDEMIA, UNSPECIFIED Qualifiers: Hyperlipidemia type: pure hypercholesterolemia Qualified Code(s): E78.00 - Pure hypercholesterolemia, unspecified; E78.0 - Pure hypercholesterolemia (7) Hypothyroidism Code(s): E03.9 - HYPOTHYROIDISM, UNSPECIFIED Qualifiers: Hypothyroidism type: unspecified Qualified Code(s): E03.9 - Hypothyroidism , unspecified (8) Progressive angina Code(s): I20.0 - UNSTABLE ANGINA Assessment/Plan 1. Syncope, etiology to be determined, rule out vasovagal vs. neurocardiogenic - no further episode 2. History of seizure 3. Non-obstructive CAD via recent LHC 4. HTN 5. Hypercholesterolemia 6. Hypothyroidism 7. 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 Diastolic dysfunction 9. T11 compression fracture with need for spinal fusion PLAN: 1. telemetry monitor - patient is not orthostatic 2. Cannot interrogate loop as it has no power. May consider battery exchange at some point or explantation. In the mean time, may need external loop monitoring as outpatient 3. EEG as per neuro today 4. Consider Tilt table test as outpatient 5. Continue Toprol XL and Prinivil 6. Continue Imdur and Ranexa 7. Continue Eliquis Further plans are to follow Tod Delgado MD
--- NOTE | 2018-02-27 13:36 | DS ---
Physical Exam: SUBJECTIVE: Patient seen and examined this AM. He states that he is feeling well. Still with some increasing of heart rate during standing, but no episodes of chest pain or syncope. OBJECTIVE: Vital Signs Period Temp Pulse Resp BP Sys/Franklin Pulse Ox Last 24 Hr 98 F-98.5 F 87-97 17-19 123-131/60-79 97 PHYSICAL EXAM GENERAL: A&O, no acute distress HEAD: Normocephalic, atraumatic. EYES: PERRL, no scleral icterus EARS, NOSE, THROAT: oropharynx clear without exudates. Moist mucous membranes. NECK: supple without lymphadenopathy LUNGS: CTA b/l, no crackles or wheezes HEART: Regular rate and rhythm, normal S1 and S2 without murmur ABDOMEN: Soft, nontender to palpation, normoactive bowel sounds EXTREMITIES: 2+ pulses, warm, well-perfused. No peripheral edema. NEUROLOGICAL: Cranial nerves II-XII grossly intact. Normal speech. LABS HOSPITAL COURSE: Date of Admission:02/24/18 Date of Discharge: 02/27/18 HPI on Admission: 47 y/o M with PMH HTN, HLD, +stress test Nov 2017, hypothyroidism, DVT (2011 s/ p R knee surgery), PE (2018- on coumadin changed to eliquis), hep C, who presents to the ED c/o syncopal event that occurred this AM. As per pt, this AM when he was in his hotel (after d/c from [place] after his cardiac cath), he walked to the elevator when he started to feel as if his heart was pounding. He became lightheaded and dizzy, developed a migraine and tunnel vision when he passed out. States that he woke up surrounded by EMS and was told by a bystander that he "looked like he was having a seizure." Was brought via ambulance to [facility] ED. Currently endorses mild CURIEL from bruising s/p fall, pain in R shoulder (has known rotator cuff tear). Denies fever, chills, N/V, chest pain or pressure, or changes in urinary or bowel function. Has had good appetite recently, no recent illnesses. Of note, pt states that 4 years ago he had past episodes of lightheadedness d/t bradycardia. Was told at the time that he may need a pacemaker. Has had loop recorder x 2 ; was told no events on the last interrogation. Pt was last admitted at [facility] this month for angina and recent exertional dyspnea , as well as GIB (underwent EGD, colonoscopy WNL). He underwent cardiac cath at [place] (2 days ago) and was found to have nonobstructive dz with normal LV fnc. After his cath, he noted multiple episodes of near-syncope when sitting in bed at 2-3AM in the hospital after procedure and then episode of syncope this AM in the hotel as above. Hospital Course: Pt was seen by both cardiology and neurology. He had no further episodes of syncope upon admission. Cardiology recommended interrogation of his loop recorder, however the battery was and it was unable to be interrogated. He was recommended to follow up as an outpatient for possible exchange of loop recorder battery and possible tilt table testing. Neurology recommended Topiramate 50 mg PO BID and an EEG with the patients distant history of seizures. EEG did not show any acute seizure activity however there was an area of discharge that requires further outpatient follow up with a Video EEG. Pt was informed that he can drive during the day only and not if he is alone and the importance of very close follow up with neurology next week. Minutes to complete discharge: 35 Discharge Summary Reason For Visit: SYNCOPE AND COLLAPSE Current Active Problems Syncope and collapse (Acute) Condition: Stable - Instructions Diet, Activity, Other Instructions: You were admitted for an episode of syncope (passing out). Your loop recorder was unable to be interrogated and you will likely need it replaced. You were seen by a neurologist who recommended an EEG with your distant history of seizures. You were also seen by the web software engineer who recommended interrogation of the loop recorder to make sure that an abnormal heart rhythm did not cause your episode and an outpatient test called a tilt table test. At this time you are medically stable for discharge. As per Neurology, you are allowed to drive during the day if someone else is present with you. You cannot drive by yourself at this time until further follow up with neurology next week. You should follow up with your web software engineer within 2 weeks of discharge from the hospital. It is very important that you also follow up with neurology within 1 week of discharge from the hospital. You should also follow up with your primary care physician within 1 week of discharge. You were started on Topiramate 50 mg by mouth twice daily, one pill in the morning and one pill at night. This medication has been sent to your pharmacy You should otherwise continue all of your other medications as they were prescribed prior to this hospitalization If you have any further episodes of passing out, or any other concerning symptoms, you should be seen by your doctor or return to the emergency department. Referrals: Tod Delgado MD [Staff Physician] - Mario Oreilly MD [Staff Physician] - Disposition: HOME - Home Medications Comprehensive Discharge Medication List: Ambulatory Orders Amlodipine Besylate 5 mg PO DAILY 02/12/18 Aspirin [ASA -] 81 mg PO DAILY 02/12/18 Atorvastatin Calcium 80 mg PO DAILY 02/12/18 Isosorbide Mononitrate [Isosorbide Mononitrate ER] 60 mg PO DAILY 02/12/18 Levothyroxine [Synthroid -] 50 mcg PO DAILY 02/12/18 Lidocaine 5% Patch [Lidoderm -] 1 patch TP BID 02/12/18 Lisinopril 10 mg PO DAILY 02/12/18 Nitroglycerin Sublingual [Nitrostat -] 0.4 mg SL PRN PRN 02/12/18 Clopidogrel Bisulfate [Plavix -] 75 mg PO DAILY tablet 02/22/18 Pantoprazole Sodium [Protonix -] 40 mg PO DAILY tablet.ec 02/22/18 Polyethylene Glycol 3350 [Miralax 119 gm Btl -] 17 gm PO DAILY bottle 02/22/18 Ranolazine [Ranexa -] 500 mg PO BID tab 02/22/18 oxyCODONE HCL [Roxicodone -] 15 mg PO Q4H PRN tablet MDD 90 02/22/18 Metoprolol Succinate [Toprol Xl] 100 mg PO BID 02/24/18 Topiramate [Topamax -] 50 mg PO BID #120 tablet 02/27/18 This patient is new to me today: No Emergency Visit: Yes ED Registration Date: 02/24/18 Care time: The patient presented to the Emergency Department on the above date and was hospitalized for further evaluation of their emergent condition. Critical Care patient: No - Discharge Referral Referred to [facility] Med P.C.: No
--- NOTE | 2018-02-27 15:28 | PN ---
Progress Note, Physician History of Present Illness: events noted and chart reviewed Patient is on telemetry Patient was seen by cardiology Patient still with the orthostatic induced sinus tachycardia. EEG was abnormal with abnormal discharge in the left temporal area patient with history of epilepsy Patient is on Topamax tolerating the medicine very well. - Current Medication List Current Medications: Active Medications Apixaban (Eliquis -) 5 mg PO BID [facility] Last Admin: 02/27/18 10:47 Dose: 5 mg Atorvastatin Calcium (Lipitor -) 80 mg PO HS [facility] Last Admin: 02/26/18 22:08 Dose: 80 mg Isosorbide Mononitrate (Imdur -) 60 mg PO DAILY [facility] Last Admin: 02/27/18 10:47 Dose: 60 mg Levothyroxine Sodium (Synthroid -) 50 mcg PO DAILY@0700 [facility] Last Admin: 02/27/18 06:22 Dose: 50 mcg Lidocaine (Lidoderm Patch -) 1 patch TP DAILY [facility] Last Admin: 02/27/18 10:47 Dose: 1 patch Lisinopril (Prinivil) 10 mg PO DAILY [facility] Last Admin: 02/27/18 10:47 Dose: 10 mg Metoprolol Succinate (Toprol Xl -) 100 mg PO BID [facility] Last Admin: 02/27/18 10:47 Dose: 100 mg Miscellaneous (Lidoderm Patch Removal) 1 each MC DAILY@2200 [facility] Last Admin: 02/26/18 22:10 Dose: 1 each Oxycodone HCl (Roxicodone -) 15 mg PO Q4H PRN PRN Reason: PAIN LEVEL 6-10 Last Admin: 02/27/18 12:33 Dose: 15 mg Pantoprazole Sodium (Protonix -) 40 mg PO DAILY [facility] Last Admin: 02/27/18 10:47 Dose: 40 mg Polyethylene Glycol (Miralax (For Daily Use) -) 17 gm PO DAILY [facility] Last Admin: 02/27/18 10:56 Dose: Not Given Ranolazine (Ranexa -) 500 mg PO BID [facility] Last Admin: 02/27/18 10:47 Dose: 500 mg Topiramate (Topamax -) 50 mg PO BID [facility] Last Admin: 02/27/18 10:47 Dose: 50 mg - Objective Vital Signs: Vital Signs Temperature 98.4 F 02/27/18 14:00 Pulse Rate 94 H 02/27/18 14:00 Respiratory Rate 02/27/18 09:00 Blood Pressure 119/70 02/27/18 14:00 O2 Sat by Pulse Oximetry (%) 97 02/27/18 09:00 Constitutional: Yes: Well Nourished Eyes: Yes: WNL Neurological: Yes: Alert, Oriented, Babinski negative ...Motor Strength: WNL Labs: CBC, BMP 02/25/18 06:30 02/25/18 06:30 INR, PTT INR 1.05 (0.83-1.09) 02/24/18 11:50 Problem List - Problems (1) Syncope and collapse Assessment/Plan: epilepsy Cardiac arrhythmia 1. Neuro checks every 1 hour. 2. Neurologically patient could be discharged home. 3. Follow-up with electrophysiology linen room houseperson. 4. Continue Topamax 50 mg twice daily. 5. Seizure precautions. Code(s): R55 - SYNCOPE AND COLLAPSE
[2018-02-27] MEDS: ATORVASTATIN CA 80 MG TABLET (FP) PO SCH (21:30)
[2018-02-27] MEDS: LIDOCAINE PATCH REMOVAL MC SCH (21:30)
[2018-02-28] MEDS: oxyCODONE HCL 5 MG TABLET PO PRN ×4 (01:34→13:36)
[2018-02-28] MEDS: LEVOTHYROXINE NA 50 MCG TABLET (FP) PO SCH (06:09)
--- NOTE | 2018-02-28 07:24 | PN ---
Teaching Attending Note Name of Resident: Debo Knight ATTENDING PHYSICIAN STATEMENT I saw and evaluated the patient. I reviewed the resident's note and discussed the case with the resident. I agree with the resident's findings and plan as documented. SUBJECTIVE: Patient is feeling better with no acute distress. no new events at night. OBJECTIVE: Vital Signs Temperature 98.3 F 02/28/18 06:00 Pulse Rate 96 H 02/28/18 06:00 Respiratory Rate 18 02/28/18 06:00 Blood Pressure 107/63 02/28/18 06:00 O2 Sat by Pulse Oximetry (%) 96 02/27/18 21:00 GENERAL: awake, alert, and fully oriented, in no acute distress. HEAD: NC, no bleeding EYES: Pupils equal, round and reactive to light, extraocular movements intact, sclera anicteric, conjunctiva clear. EARS, NOSE, THROAT: Ears normal, no exudates , Moist mucous membranes. NECK: Normal range of motion, supple LUNGS: Breath sounds equal, clear to auscultation bilaterally. No wheezes, and no crackles. No accessory muscle use. HEART: NSR , S1S2 positive, without murmur, rub or gallop. ABDOMEN: Soft, nontender, not distended, normoactive bowel sounds, no guarding , no rebound EXTREMITIES: 2+ pt pulses, warm, well-perfused. No calf tenderness. NEUROLOGICAL: Cranial nerves II-XII intact. Normal speech. PSYCHIATRIC: Cooperative. Good eye contact. CBCD WBC 3.7 K/mm3 (4.0-10.0) L 02/25/18 06:30 RBC 4.42 M/mm3 (4.00-5.60) 02/25/18 06:30 Hgb 11.6 GM/dL (11.7-16.9) L 02/25/18 06:30 Hct 36.8 % (35.4-49) 02/25/18 06:30 MCV 83.2 fl (80-96) 02/25/18 06:30 MCHC 31.6 g/dl (32.0-35.9) L 02/25/18 06:30 RDW 16.1 % (11.9-15.9) H 02/25/18 06:30 Plt Count 101 K/MM3 (134-434) L D 02/25/18 06:30 MPV 9.1 fl (7.5-11.1) 02/25/18 06:30 CMP Sodium 139 mmol/L (136-145) 02/25/18 06:30 Potassium 3.5 mmol/L (3.5-5.1) 02/25/18 06:30 Chloride 104 mmol/L (98-107) 02/25/18 06:30 Carbon Dioxide 27 mmol/L (21-32) 02/25/18 06:30 Anion Gap 8 MMOL/L (8-16) 02/25/18 06:30 BUN 15 mg/dL (7-18) 02/25/18 06:30 Creatinine 0.9 mg/dL (0.55-1.3) 02/25/18 06:30 Creat Clearance w eGFR > 60 (>60) 02/25/18 06:30 Random Glucose 119 mg/dL (74-106) H 02/25/18 06:30 Calcium 8.1 mg/dL (8.5-10.1) L 02/25/18 06:30 Total Bilirubin 0.4 mg/dL (0.2-1) 02/25/18 06:30 AST 48 U/L (15-37) H 02/25/18 06:30 ALT 119 U/L (13-61) H 02/25/18 06:30 Alkaline Phosphatase 53 U/L (45-117) 02/25/18 06:30 Total Protein 6.8 g/dl (6.4-8.2) 02/25/18 06:30 Albumin 3.3 g/dl (3.4-5.0) L 02/25/18 06:30 CARDIAC ENZYMES Creatine Kinase 156 IU/L (26-308) 02/24/18 11:50 Troponin I < 0.02 ng/ml (0.00-0.05) 02/24/18 11:50 Current Medications Generic Name Dose Route Start Last Admin Trade Name Freq PRN Reason Stop Dose Admin Apixaban 5 mg 02/24/18 22:00 02/27/18 21:28 Eliquis - PO 5 mg BID JESSICA Administration Atorvastatin Calcium 80 mg 02/24/18 22:00 02/27/18 21:30 Lipitor - PO 80 mg HS JESSICA Administration Isosorbide Mononitrate 60 mg 02/24/18 17:45 02/27/18 10:47 Imdur - PO 60 mg DAILY JESSICA Administration Levothyroxine Sodium 50 mcg 02/24/18 17:48 02/28/18 06:09 Synthroid - PO 50 mcg DAILY@0700 JESSICA Administration Lidocaine 1 patch 02/24/18 17:48 02/27/18 10:47 Lidoderm Patch - TP 1 patch DAILY [facility]ESS[facility] Administration Lisinopril 10 mg 02/25/18 10:00 02/27/18 10:47 Prinivil PO 10 mg DAILY JESSICA Administration Metoprolol Succinate 100 mg 02/25/18 10:00 02/27/18 21:30 Toprol Xl - PO 100 mg BID [facility] Administration Miscellaneous 1 each 02/24/18 22:00 02/27/18 21:30 Lidoderm Patch Removal MC 1 each DAILY@2200 [facility] Administration Oxycodone HCl 15 mg 02/24/18 22:09 02/28/18 05:54 Roxicodone - PO 15 mg Q4H PRN Administration PAIN LEVEL 6-10 Pantoprazole Sodium 40 mg 02/24/18 17:00 02/27/18 10:47 Protonix - PO 40 mg DAILY [facility] Administration Polyethylene Glycol 17 gm 02/24/18 17:00 02/27/18 10:56 Miralax (For Daily Use) - PO Not Given DAILY [facility] Ranolazine 500 mg 02/24/18 17:46 02/27/18 21:30 Ranexa - PO 500 mg BID [facility] Administration Topiramate 50 mg 02/25/18 22:00 02/27/18 21:30 Topamax - PO 50 mg BID JESS[facility] Administration Home Medications Medication Instructions Recorded Amlodipine Besylate 5 mg PO DAILY 02/12/18 Aspirin [ASA -] 81 mg PO DAILY 02/12/18 Atorvastatin Calcium 80 mg PO DAILY 02/12/18 Isosorbide Mononitrate [Isosorbide 60 mg PO DAILY 02/12/18 Mononitrate ER] Levothyroxine [Synthroid -] 50 mcg PO DAILY 02/12/18 Lidocaine 5% Patch [Lidoderm -] 1 patch TP BID 02/12/18 Lisinopril 10 mg PO DAILY 02/12/18 Nitroglycerin Sublingual 0.4 mg SL PRN PRN 02/12/18 [Nitrostat -] Clopidogrel Bisulfate [Plavix -] 75 mg PO DAILY tablet 02/22/18 Pantoprazole Sodium [Protonix -] 40 mg PO DAILY tablet.ec 02/22/18 Polyethylene Glycol 3350 [Miralax 17 gm PO DAILY bottle 02/22/18 119 gm Btl -] Ranolazine [Ranexa -] 500 mg PO BID tab 02/22/18 oxyCODONE HCL [Roxicodone -] 15 mg PO Q4H PRN tablet MDD 90 02/22/18 Metoprolol Succinate [Toprol Xl] 100 mg PO BID 02/24/18 Topiramate [Topamax -] 50 mg PO BID #120 tablet 02/27/[address]: without hemorrhage or other acute abnormalities EKG: sinus tach, PA 138ms, QRS 94ms, Qtc 443ms. no ST, T wave changes ASSESSMENT AND PLAN: Patient is a 47 y/o M with PMHx HTN, HLD, positive stress test Nov 2017, hypothyroidism, DVT (2011 s/p R knee surgery), PE (2017 on coumadin changed to eliquis), hep C, who presents to the ED c/o syncopal event that occurred this AM. #Acute syncopal event most likely vasovagal/seizure , EEG was done with positive result, seen by Neuro and was started on Topamax 50mg 2x per day and patient to follow up with neuro. as outpatient. Patient was seen by Cardio Dr. Delgado , to continue meds except Imdur 60mg but to continue Ranexa. cardio consult: Dr. Degroot. had ECHO done on past admission and cath showed nl LV fnc -Neuro consult: Dr. Oreilly; as per neuro to take Topamax and not to take any pain meds since can lower the Seizure Threshold. #HTN-currently controlled cont toprol XL 100 BID #Non-obstructive CAD c/w microvascular angina continue home meds. but to discontinue Imdur and NTG SL #hx DVT, PE on eliquis 5mg BID #Hep C continue GI outpt f/u #chronic back pain - t11/t12 compression fx on oxicodone discussed with the patient that the pain meds will discrease the seizure threshold. DVT px: on eliquis discharge patient home. 35minutes
--- NOTE | 2018-02-28 08:57 | PN ---
Physical Exam: SUBJECTIVE: Patient seen and examined. Pt reported tachycardia to 160s, no report from nurse to support that or on tele. Heart rate has been improving. Says family will pickle maker today. Requesting oxycodone prescription and transmission of topamax to [facility] other than his regular pharmacy. Pt reporting that EEG shows he has no seizures, while EEG reported as epileptiform. OBJECTIVE: Vital Signs Period Temp Pulse Resp BP Sys/[place] Pulse Ox Last 24 Hr 98 F-98.5 F 94-118 18-18 107-146/63-87 96-97 Vital Signs Temperature 98 F 02/28/18 09:00 Pulse Rate 98 H 02/28/18 09:00 Respiratory Rate 18 02/28/18 09:00 Blood Pressure 144/88 02/28/18 09:00 O2 Sat by Pulse Oximetry (%) 96 02/28/18 09:00 GENERAL: The patient is awake, alert, and fully oriented, in no acute distress. HEAD: Normal with no signs of trauma. LUNGS: Breath sounds equal, clear to auscultation bilaterally, no wheezes, no crackles HEART: Regular rate and rhythm, S1, S2 without murmur ABDOMEN: Soft, nontender, nondistended, normoactive bowel sounds, no guarding EXTREMITIES: 2+ pulses, warm, well-perfused, no edema. NEUROLOGICAL: Cranial nerves II through XII grossly intact. Normal speech, gait not observed. PSYCH: Normal mood, normal affect. Active Medications Apixaban (Eliquis -) 5 mg PO BID [facility] Last Admin: 02/28/18 10:10 Dose: 5 mg Atorvastatin Calcium (Lipitor -) 80 mg PO HS [facility] Last Admin: 02/27/18 21:30 Dose: 80 mg Isosorbide Mononitrate (Imdur -) 60 mg PO DAILY [facility] Last Admin: 02/28/18 10:10 Dose: 60 mg Levothyroxine Sodium (Synthroid -) 50 mcg PO DAILY@0700 [facility] Last Admin: 02/28/18 06:09 Dose: 50 mcg Lidocaine (Lidoderm Patch -) 1 patch TP DAILY [facility] Last Admin: 02/28/18 10:10 Dose: 1 patch Lisinopril (Prinivil) 10 mg PO DAILY [facility] Last Admin: 02/28/18 10:10 Dose: 10 mg Metoprolol Succinate (Toprol Xl -) 100 mg PO BID [facility] Last Admin: 02/28/18 10:10 Dose: 100 mg Miscellaneous (Lidoderm Patch Removal) 1 each MC DAILY@2200 [facility] Last Admin: 02/27/18 21:30 Dose: 1 each Oxycodone HCl (Roxicodone -) 15 mg PO Q4H PRN PRN Reason: PAIN LEVEL 6-10 Last Admin: 02/28/18 10:08 Dose: 15 mg Pantoprazole Sodium (Protonix -) 40 mg PO DAILY [facility] Last Admin: 02/28/18 10:10 Dose: 40 mg Polyethylene Glycol (Miralax (For Daily Use) -) 17 gm PO DAILY [facility] Last Admin: 02/28/18 10:17 Dose: Not Given Ranolazine (Ranexa -) 500 mg PO BID [facility] Last Admin: 02/28/18 10:10 Dose: 500 mg Topiramate (Topamax -) 50 mg PO BID [facility] Last Admin: 02/28/18 10:09 Dose: 50 mg Ambulatory Orders Amlodipine Besylate 5 mg PO DAILY 02/12/18 Aspirin [ASA -] 81 mg PO DAILY 02/12/18 Atorvastatin Calcium 80 mg PO DAILY 02/12/18 Isosorbide Mononitrate [Isosorbide Mononitrate ER] 60 mg PO DAILY 02/12/18 Levothyroxine [Synthroid -] 50 mcg PO DAILY 02/12/18 Lidocaine 5% Patch [Lidoderm -] 1 patch TP BID 02/12/18 Lisinopril 10 mg PO DAILY 02/12/18 Nitroglycerin Sublingual [Nitrostat -] 0.4 mg SL PRN PRN 02/12/18 Clopidogrel Bisulfate [Plavix -] 75 mg PO DAILY tablet 02/22/18 Pantoprazole Sodium [Protonix -] 40 mg PO DAILY tablet.ec 02/22/18 Polyethylene Glycol 3350 [Miralax 119 gm Btl -] 17 gm PO DAILY bottle 02/22/18 Ranolazine [Ranexa -] 500 mg PO BID tab 02/22/18 oxyCODONE HCL [Roxicodone -] 15 mg PO Q4H PRN tablet MDD 90 02/22/18 Metoprolol Succinate [Toprol Xl] 100 mg PO BID 02/24/18 Topiramate 50 mg PO BID #60 tablet 02/28/[address]: without hemorrhage or other acute abnormalities EKG: sinus tach, ME 138ms, QRS 94ms, Qtc 443ms. no ST, T wave changes EEG- L temporal lobe epilepsy ASSESSMENT/PLAN: 47 y/o gentleman with a significant past medical history of HTN, HLD, positive stress test in [place] 6 months ago, positive stress test [facility] November 2017, Recent Heart Cath last week, hypothyroidism, DVT (2011 s/p R Knee surgery), Pulmonary embolism (2014), Pulmonary embolism Mar 2017 (started on Coumadin), another PE Oct 2017 (Coumadin switched to eliquis), IVC filter placement admitted with complaint syncopal episode. Syncope -Pt with distant history of seizures now with confirmed epileptiform on EEG -Investigate loop recorder and if no events, pt can have tilt table testing as outpatient -Telemetry monitoring - Concerned about pt requesting oxycodone , now that he has been place back on topamax- counselled him on risks -I stop shows different states and addresses fror where he received oxycodone in past - Pt counselled about not driving with dignosis of epilepsy - For neuro outpt follow up Recurrent DVT/PEs with IVC Filter -Pt reports negative hypercoagulable workup in the past -On Eliquis 5 mg PO BID, though currently held for Colonoscopy -Lovenox 120 mg SQ BID -Heme/onc consulted on previous admission -Recommend standard cancer screening as pt has not had all adequate screening HTN -Lisinopril 10 mg PO Daily -Toprol XL 100 mg PO BID -Imdur 60 mg PO Daily -Norvasc 5 mg PO Daily Hypothyroidism -Synthroid 50 mcg PO AM HLD -Lipitor 80 mg PO HS Transaminitis -Pt denies alcohol use -Hep C Ab positive, RNA PCR positive -New diagnosis of HCV on recent admission -EGD did not reveal any varices or gastritis DVT Prophylaxis -Eliquis 5 mg PO BID FEN -Fluids: none -Electrolytes: No electrolyte abnormalities -Nutrition: Na controlled diet Disposition dcd yesterday waiting to be picked up by family Visit type - Emergency Visit Emergency Visit: Yes ED Registration Date: 02/24/18 Care time: The patient presented to the Emergency Department on the above date and was hospitalized for further evaluation of their emergent condition. - New Patient This patient is new to me today: Yes Date on this admission: 02/28/18 - Critical Care Critical Care patient: No - Discharge Referral Referred to [facility] Med P.C.: No
[2018-02-28 09:57] VITALS: TEMP 98
[2018-02-28] MEDS ORDERED: PT OWN MED DRAWER 7, Y5N ONE (09:59)
[2018-02-28] MEDS: TOPIRAMATE 25 MG TABLET (FP) PO SCH (10:09)
[2018-02-28] MEDS: LISINOPRIL 10 MG TABLET (FP) PO SCH (10:10)
[2018-02-28] MEDS: LIDOCAINE 5% TOPICAL PATCH TP SCH (10:10)
[2018-02-28] MEDS: APIXABAN 5 MG TABLET PO SCH (10:10)
[2018-02-28] MEDS: RANOLAZINE E.R. 500 MG TABLET (FP) PO SCH (10:10)
[2018-02-28] MEDS: PANTOPRAZOLE 40 MG TABLET (FP) PO SCH (10:10)
[2018-02-28] MEDS: ISOSORBIDE MONONITRATE 60 MG TAB.SR.24H (FP) PO SCH (10:10)
[2018-02-28] MEDS: POLYETHYLENE GLYCOL 3350 119 GM BTL PO SCH (10:17)
--- NOTE | 2018-02-28 12:02 | PN ---
Progress Note, Physician Chief Complaint: Not in distress Periods of sinus tachycardia History of Present Illness: Patient was seen and examined. Awake and alert. Chart was reviewed Denies chest pain, SOB or palpitations Probable [employer] Loop but no power on battery, thus not able to interrogate sinus tachycardia on the monitor as noted Being discharged today Neuro input noted - Current Medication List Current Medications: Active Medications Apixaban (Eliquis -) 5 mg PO BID [facility] Last Admin: 02/28/18 10:10 Dose: 5 mg Atorvastatin Calcium (Lipitor -) 80 mg PO HS [facility] Last Admin: 02/27/18 21:30 Dose: 80 mg Isosorbide Mononitrate (Imdur -) 60 mg PO DAILY [facility] Last Admin: 02/28/18 10:10 Dose: 60 mg Levothyroxine Sodium (Synthroid -) 50 mcg PO DAILY@0700 [facility] Last Admin: 02/28/18 06:09 Dose: 50 mcg Lidocaine (Lidoderm Patch -) 1 patch TP DAILY [facility] Last Admin: 02/28/18 10:10 Dose: 1 patch Lisinopril (Prinivil) 10 mg PO DAILY [facility] Last Admin: 02/28/18 10:10 Dose: 10 mg Metoprolol Succinate (Toprol Xl -) 100 mg PO BID [facility] Last Admin: 02/28/18 10:10 Dose: 100 mg Miscellaneous (Lidoderm Patch Removal) 1 each MC DAILY@2200 [facility] Last Admin: 02/27/18 21:30 Dose: 1 each Oxycodone HCl (Roxicodone -) 15 mg PO Q4H PRN PRN Reason: PAIN LEVEL 6-10 Last Admin: 02/28/18 10:08 Dose: 15 mg Pantoprazole Sodium (Protonix -) 40 mg PO DAILY [facility] Last Admin: 02/28/18 10:10 Dose: 40 mg Polyethylene Glycol (Miralax (For Daily Use) -) 17 gm PO DAILY [facility] Last Admin: 02/28/18 10:17 Dose: Not Given Ranolazine (Ranexa -) 500 mg PO BID [facility] Last Admin: 02/28/18 10:10 Dose: 500 mg Topiramate (Topamax -) 50 mg PO BID [facility] Last Admin: 02/28/18 10:09 Dose: 50 mg - Objective Vital Signs: Vital Signs Temperature 98 F 02/28/18 09:00 Pulse Rate 98 H 02/28/18 09:00 Respiratory Rate 18 02/28/18 09:00 Blood Pressure 144/88 02/28/18 09:00 O2 Sat by Pulse Oximetry (%) 96 02/28/18 09:00 Eyes: Yes: PERRL HENT: Yes: Atraumatic Neck: Yes: Supple Cardiovascular: Yes: Regular Rate and Rhythm, S1, S2 Respiratory: Yes: CTA Bilaterally Gastrointestinal: Yes: Normal Bowel Sounds, Soft. No: Tenderness Edema: No Additional Findings/Remarks: - Review of Systems Constitutional: denies: Chills, Fever Cardiovascular: denies: Palpitations. denies: Chest Pain, Shortness of Breath Respiratory: denies: Cough, Hemoptysis, Orthopnea, PND, SOB, SOB on Exertion Gastrointestinal: denies: Abdominal Pain, Melena, Nausea, Rectal Bleeding, Vomiting Genitourinary: denies: Dysuria, Hematuria Musculoskeletal: denies: Back Pain, Joint Pain Neurological: denies: Dizziness. denies: Change in Speech, Headache, Numbness, Parasthesia, Seizure, (+) Syncope Problem List - Problems (1) Syncope and collapse Code(s): R55 - SYNCOPE AND COLLAPSE (2) Family history of malignant neoplasm of colon in first degree relative diagnosed when younger than 60 years of age Code(s): Z80.0 - FAMILY HISTORY OF MALIGNANT NEOPLASM OF DIGESTIVE ORGANS (3) Family history of premature coronary artery disease Code(s): Z82.49 - FAMILY HX OF ISCHEM HEART DIS AND OTH DIS OF [facility] (4) H/O deep venous thrombosis Code(s): Z86.718 - PERSONAL HISTORY OF OTHER VENOUS THROMBOSIS AND EMBOLISM (5) History of pulmonary embolism Code(s): Z86.711 - PERSONAL HISTORY OF PULMONARY EMBOLISM (6) Hyperlipidemia Code(s): E78.5 - HYPERLIPIDEMIA, UNSPECIFIED Qualifiers: Hyperlipidemia type: pure hypercholesterolemia Qualified Code(s): E78.00 - Pure hypercholesterolemia, unspecified; E78.0 - Pure hypercholesterolemia (7) Hypothyroidism Code(s): E03.9 - HYPOTHYROIDISM, UNSPECIFIED Qualifiers: Hypothyroidism type: unspecified Qualified Code(s): E03.9 - Hypothyroidism , unspecified (8) Progressive angina Code(s): I20.0 - UNSTABLE ANGINA Assessment/Plan 1. Syncope, etiology to be determined, rule out vasovagal vs. neurocardiogenic - no further episode except for sinus tachycardia 2. History of seizure and abnormal EEG finding as per Neuro input 3. Non-obstructive CAD via recent LHC 4. HTN 5. Hypercholesterolemia 6. Hypothyroidism 7. 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 Diastolic dysfunction 9. T11 compression fracture with need for spinal fusion PLAN: 1. Discharge planning 2. Cannot interrogate loop as it has no power. May consider battery exchange at some point or explantation. In the mean time, may need external loop monitoring as outpatient 3. Neuro input noted and patient is to follow up as outpatient 4. Consider Tilt table test as outpatient 5. Continue Toprol XL and Prinivil 6. Continue Ranexa. Discontinue Imdur 7. Continue Eliquis Further plans are to follow. Patient was advised to follow up in office 1-2 weeks Tod Delgado MD
[2018-02-28] MEDS ORDERED: INSULIN (LEVEMIR) 100 UNITS/ML UNITS SQ ONE (13:03)
[2018-02-28 13:45] VITALS: BP 138/78; PULSE 100
--- NOTE | 2018-03-02 16:22 | PATH ---
Surgical Pathology Report Patient Name: ELIZ JIMENEZ [facility]. Rec. #: [id number] /Age/Gender: 1970 (Age: 47) / M Account: [id number] Location: 4 W TELEMETRY U Taken: 02/28/2018 Received: 03/01/2018 Reported: 03/02/2018 Physicians: Kayce Asif MD Specimen(s) Received PERIPHERAL BLOOD Clinical History Pancytopenia Final Diagnosis COMPREHENSIVE FLOW PANEL performed and interpreted at [place], [place] ([id number]) shows the following: INTERPRETATION: In the samples analyzed, there is no evidence of B or T-cell proliferative disorders or increased blasts. MYELODYSPLASIA FISH PANEL performed and interpreted at [facility], [place], [place] ([id number]) shows the following: INTERPRETATION: No evidence of deletion 5q or monosomy 5 is present. No evidence of deletion 7q or monosomy 7 is present. No evidence of trisomy 8 (+8) is present. No evidence of deletion 13q14.2 is present. No evidence of rearrangement of 11q23. No evidence of a deletion of the p53 (17p13) locus. No evidence of deletion 20q12 is present See [facility] reports ([id number] and [id number]) for additional details. Electronically Signed Olive Curtis M.D. Gross Description Received are 2 green top tubes of peripheral blood which are sent to [facility]. DL/03/01/[id number]/01/2018
== END 2018-02-28 14:07 | disposition home or self-care (01) ==
LOC: JER 10:54 → JERBED 14:19 → J4W 22:55
PROVIDERS: ADMIT Internal Medicine; ATTEND Internal Medicine
DX: R55 Syncope and collapse (principal); I10 Essential (primary) hypertension; E78.5 Hyperlipidemia, unspecified; E03.9 Hypothyroidism, unspecified; I25.110 Atherosclerotic heart disease of native coronary artery with unstable angina pectoris; B18.2 Chronic viral hepatitis C; R00.0 Tachycardia, unspecified; R74.0 Nonspecific elevation of levels of transaminase and lactic acid dehydrogenase [LDH]; Z82.49 Family history of ischemic heart disease and other diseases of the circulatory system; Z80.0 Family history of malignant neoplasm of digestive organs; Z79.82 Long term (current) use of aspirin; Z95.828 Presence of other vascular implants and grafts; Z86.718 Personal history of other venous thrombosis and embolism; Z86.711 Personal history of pulmonary embolism; Z79.01 Long term (current) use of anticoagulants; Z88.0 Allergy status to penicillin; S09.90XA Unspecified injury of head, initial encounter; W18.39XA Other fall on same level, initial encounter; Y93.89 Activity, other specified; Y92.89 Other specified places as the place of occurrence of the external cause
CPT/HCPCS: 36415; 70450-TC; 71045-TC-FY; 71275-TC; 80053; 80307; 82550; 82553; 83735; 83880; 84100; 84439; 84443; 84484; 85025; 85027; 85610; 86850; 86900; 86901; 88300-TC; 93005; 93010; 95816; 99285-25; G0378